=== PATIENT | male | born 1970 | race Caucasian/White ===

== ENCOUNTER 2024-07-31 08:21 | Outpatient (OUT) | payer OTHER, SELFPAY ==
--- NOTE | 2024-07-31 09:09 | ECG_ITS ---
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
[2024-07-31 10:32] LABS: Anion Gap 16.7; BUN Creatinine Ratio 18.9; Calcium 9.6 mg/dL (8.5-10.1); Carbon Dioxide 24.9 mmol/L (21.0-32.0); Chloride 104 mmol/L (98-107); Estimated GFR (African America >60 (>=60 mL/min/1.73m^2); Estimated GFR (Non-African Ame 59 (>=60 mL/min/1.73m^2); Glucose 102 mg/dL (74-106); Potassium 4.6 mmol/L (3.5-5.1); Sodium 141 mmol/L (136-145)
== END 2024-07-31 08:22 | disposition home or self-care (01) ==
LOC: PST 08:24
PROVIDERS: PCP Internal Medicine; Visit Provider Surgery
DX: Z01.810 Encounter for preprocedural cardiovascular examination (principal); Z01.812 Encounter for preprocedural laboratory examination; K42.9 Umbilical hernia without obstruction or gangrene
CPT/HCPCS: 80048; 93005

== ENCOUNTER 2024-08-11 06:41 | Day surgery (SDC) | payer OTHER, SELFPAY ==
[2024-07-31 09:36] VITALS: BP 126/85; PULSE 53; TEMP 36.4; O2SAT 98; BMI 32.1
[2024-08-11] VITALS (10 sets, daily range): BP systolic 122–166; BP diastolic 71–111; PULSE 59–80; TEMP 36.1–36.2; O2SAT 95–99; BMI 31.8; BMI 4581.1
--- OUTSIDE RECORDS SUMMARY | 2024-08-11 06:47 | XMS_ITS | CCD ---
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 Name Role Phone MESKO, JAYLEN W Unavailable Unavailable MESKO, JAYLEN W Unavailable Unavailable PAYAL, JAYANTILAL D Unavailable Unavailabl e MESKO, JAYLEN W Unavailable Unavailable MESKO, JYALEN W Unavailable Unavailable PAYAL, JAYANTILAL D Unavailable UnavailSEE Ferrell Primary Care Unavailable PAY, ANISH Admitting Unavailable PAY, ANISH Attending Unavailable CYNTHIA CORNEJO Consulting Unavailable PAY, ANISH Consulting Unavailable ML WALTER Consulting Unavailable FLORES ROSALES Admitting Unavailable FLORES ROSALES Attending Unavailable SEE KHALIL Primary Care Unavailable FLORES ROSALES Consulting Unavailable FREDERICK LIGHT Consulting Unavailable See Khalil II Primary Care Provider [phone] See Khalil II Primary Care Provider SEE KHALIL Admitting Unavailable SEE KHALIL Attending Unavailable SEE KHALIL Primary Care Unavailable Provider, None Primary Care Unavailable Jason Esparza Admitting Unavailable Jason Esparza Attending Unavailable Remi HAGER MD, Daniel B Primary Care Provider Remi HAGER MD, Daniel B Primary Care Provider [phone] GREGORIO HERNÁNDEZ Attending Unavailable FAMILIA ACOSTA Attending Unavailable SEE KHALIL Attending Unavailable SEE KHALIL Attending Unavailable SEE KHALIL Attending Unavailable SEE KHALIL Attending Unavailable See Khalil MD Unavailable [phone] See Khalil MD Primary Care Provider Medications Current Medications Medication Drug Class(es) Dates Sig (Normalized) Sig (Original) acetaminophen 500 mg oral tablet (1 source) Start: 12-18-2021 End: 01-17-2022 take 2 tablets by mouth every eight hours as needed acetaminophen (TYLENOL EXTRA STRENGTH) 500 mg tablet Take 2 tablets by mouth three times daily as needed for pain. 180 tablet 1 12/18/2021 01/17/2022 Active Comment on above: Take 2 tablets by mo [facility] three times daily as needed for pain. allopurinol 100 mg oral tablet (9 sources) Xanthine Oxidase Inhibitor Start: 05-11-2024 take 2 tablets by mouth once daily allopurinol (Zyloprim) 100 MG tablet Indications: Pseudogout Take 2 tablets (200 mg) by mouth Daily 180 tablet 3 05/11/2024 Active allopurinol (ZYL OPRIM) 100 mg tablet Take 200 mg by mouth once daily. Once a daily 0 Active Comment on above: Take 200 mg by mouth once daily. Once a daily amLODIPine 5 mg oral tablet (5 sources) Dihydropyridine Calcium Channel Naveed Start: 06-08-20 take 1 tablet by mouth once daily amLODIPine (NORVASC) 5 mg tablet Take 5 mg by mouth once daily. 0 06/08/2018 Active Comment on above: Take 5 mg by mouth o nce daily. amoxicillin 500 mg oral tablet (9 sources) Penicillin-class Antibacterial Start: 06-30-20 24 amoxicillin (Amoxil) 500 MG tablet TAKE 4 TABLETS BY MOUTH 1 HOUR PRIOR TO APPOINTMENT, then TAKE 2 TABLETS BY MOUTH 6 (SIX) HOURS after appointment 06/30/2024 Active Start: 10-23-2022 End: 02-06-2024 amoxicillin (AMOXIL) 500 mg capsule Take 4 capsules (2000 mg) 1 hour prior to procedure, then take 2 capsules (1000mg) 6 hours after procedure. 6 capsule 2 02/06/2024 Active Comment on above: Take 4 capsules (200 0 mg) 1 hour prior to procedure, then take 2 capsules (1000mg) 6 hours after procedure. aspirin 81 mg delayed release oral tablet (4 sources) Platelet Aggregation Inhibitor, Nonsteroidal Anti-inflammatory Drug Start: 2 End: 2 take 1 tablet by mouth twice daily aspirin, enteric coated (ECOTRIN LOW STRENGTH) 81 mg EC tablet Take 1 tablet by mouth twice daily for 28 days. 56 tablet 0 12/18/2021 Active Comment on above: Take 1 tablet by [facility] twice daily for 28 days. bisoprolol fumarate 10 mg oral tablet (9 sources) beta-Adrenergic Naveed Start: 4 take 1 tablet by mouth once daily bisoprolol (Zebeta) 10 MG tablet Indications: HTN (hypertension), benign (CMS/HCC) Take 1 tablet (10 mg) by mouth Daily 90 tablet 3 05/11/2024 Active take 1 tablet by mouth once vida y bisoprolol (ZEBETA) 10 mg tablet Take 10 mg by mouth once daily. 0 Active Comment on above: Take 10 mg by mouth once daily. brexpiprazole 2 mg oral tablet (5 sources) Atypical Antipsychotic take 1 tablet by mouth once daily brexpiprazole (REXULTI) 2 mg tab Take 1 tablet by mouth once daily. 0 Active Comment on above: Take 1 tablet by paulette th once daily. citalopram 10 mg oral tablet (9 sources) Serotonin Reuptake Inhibitor Start: 05-11-20 24 take 1 tablet by mouth once daily citalopram (CeleXA) 10 MG tablet Indications: Depression with anxiety Take 1 tablet (10 mg) by mouth Daily 90 tablet 3 05/11/2024 Active Start: 06-08-2018 take 1 tablet by paulette th once daily citalopram (CELEXA) 20 mg tablet Take 20 mg by mouth once daily. 0 06/08/2018 Active Comment on above: Take 20 mg by mouth once daily. docusate sodium 100 mg oral capsule (5 sources) Start: 2 take 1 capsule by mouth every twelve hours as needed docusate sodium (COLACE) 100 mg capsule Take 1 capsule by mouth twice daily as needed for constipation. 20 capsule 0 12/18/2021 Active Comment on above: Take 1 capsule by mo [facility] twice daily as needed for constipation. doxycycline hyclate 100 mg oral capsule (1 source) Tetracycline-class Drug Start: 2 End: 2 take 1 capsule by mouth twice daily doxycycline hyclate (VIBRAMYCIN) 100 mg capsule Take 1 capsule by mouth twice daily. 84 capsule 0 12/18/2021 01/29/2022 Active Comment on above: Take 1 capsule by mo [facility] twice daily. rosuvastatin calcium 20 mg oral tablet (9 sources) HMG-CoA Reductase Inhibitor Start: 4 take 1 tablet by mouth once daily rosuvastatin (Crestor) 20 MG tablet Indications: Mixed hyperlipidemia (CMS/HCC) Take 1 tablet (20 mg) by mouth Daily 90 tablet 3 05/11/2024 Active take 1 tablet by mouth once vida y rosuvastatin (CRESTOR) 20 mg tablet Take 20 mg by mouth once daily. 0 Active Comment on above: Take 20 mg by mouth once daily. semaglutide (Ozempic) 4 MG/3ML solution pen-injector (1 source) Start: inject 1 mg by subcutaneous injection every week semaglutide (Ozempic) 4 MG/3ML solution pen-injector Indications: Type 2 diabetes mellitus with other specified complication, without long-term current use of insulin ([facility]) Inject 1 mg under the skin 1 (one) time per week 1 each 07/30/2024 Active Semaglutide,0.25 or 0.5MG/DOS, (Ozempic, 0.25 or 0.5 MG/DOSE,) 2 MG/3ML solution pen-injector (3 sources) Start: Semaglutide,0.25 or 0.5MG/DOS, (Ozempic, 0.25 or 0.5 MG/DOSE,) 2 MG/3ML solution pen-injector Indications: Type 2 diabetes mellitus with other specified complication, without long-term current use of insulin ([facility]) Inject 0.5 mg under the skin every 7 (seven) days 3 mL 07/02/2024 Active sildenafil 50 mg oral tablet (9 sources) Phosphodiesterase 5 Inhibitor Start: take 1 tablet by mouth once daily sildenafil (Viagra) 50 MG tablet Indications: Erectile dysfunction due to diseases classified elsewhere Take 1 tablet (50 mg) by mouth Daily 14 tablet 5 06/01/2024 Active sildenafil (VIAG RA) 50 mg tablet Take 50 mg by mouth as needed. 0 Active Comment on above: Take 50 mg by mouth as needed. 1 ml testosterone cypionate 200 mg/ml injection (9 sources) Androgen Start: inject 1 mL by intramuscular injection every month testosterone cypionate (Depo-Testosterone) 200 MG/ML injection Indications: Androgen deficiency inject 1 milliliter intramuscularly ONCE A MONTH 3 mL 3 06/03/2024 Active inject 1 mL by intra muscular injection every month testosterone cypionate 200 mg/mL kit Inj ect intramuscularly. Inject 1 ml intramuscular once a month 0 Active Comment on above: Inject intramuscular ly. Inject 1 ml intramuscular once a month Problems Active Problems Problem Classification Problem Date Documented Date Episodic/Chronic Abdominal hernia (2 sources) Umbilical hernia; Translations: [Umbilical hernia without obstruction or gangrene] 07-22-2024 Episodic Anxiety disorders (4 sources) Mixed anxiety and depressive disorder; Translations: [Other specified anxiety disorders] Onset: 04-05-2023 04-05-2023 Chronic Diabetes mellitus without complication (4 sources) Type 2 diabetes mellitus; Translations: [Type 2 diabetes mellitus without complications] Onset: 12-02-2023 03-05-2024 Chronic Disorders of lipid metabolism (4 sources) Mixed hyperlipidemia; Translations: [Mixed hyperlipidemia] Onset: 04-05-2023 04-05-2023 Chronic Esophageal disorders (9 sources) Gastroesophageal reflux disease; Translations: [Gastro-esophageal reflux disease without esophagitis] Onset: 12-12-2021 12-12-2021 Chronic Essential hypertension (9 sources) Hypertensive disorder; Translations: [Essential (primary) hypertension] Onset: 12-12-2021 12-12-2021 Chronic External cause codes: Fall (1 source) Fall on same level due to ice and snow, initial encounter; Translations: [FALL SAME LEVEL D/T ICE SNOW INIT] Onset: 10-28-2018 Gout and other crystal arthropathies (12 sources) Primary gout; Translations: [Idiopathic gout, unspecified site] Onset: 04-05-2023 04-05-2023 Chronic Osteoarthritis (4 sources) Osteoarthritis of hip; Translations: [Osteoarthritis of hip, unspecified] Onset: 04-05-2023 04-05-2023 Chronic Other and unspecified benign neoplasm (1 source) Benign neoplasm of transverse colon; Translations: [BENIGN NEOPLASM OF TRANSVERSE COLON] Onset: 08-04-2019 Episodic Other bone disease and musculoskeletal deformities (1 source) Idiopathic aseptic necrosis of left femur; Translations: [Idiopathic aseptic necrosis of left femur] Onset: 08-21-2018 Chronic Other bone disease and musculoskeletal deformities (1 source) Osteonecrosis, unspecified; Translations: [Osteonecrosis, unspecified] Onset: 07-10-2018 Chronic Other bone disease and musculoskeletal deformities (3 sources) Aseptic necrosis of bone of hip; Translations: [Osteonecrosis, unspecified] Onset: 07-10-2018 07-10-2018 Chronic Other bone disease and musculoskeletal deformities (9 sources) Avascular necrosis of bone; Translations: [Idiopathic aseptic necrosis of unspecified bone] Onset: 08-19-2018 08-19-2018 Chronic Other bone disease and musculoskeletal deformities (9 sources) Avascular necrosis of bone of hip; Translations: [Idiopathic aseptic necrosis of left femur] Onset: 08-21-2018 08-21-2018 Chronic Other bone disease and musculoskeletal deformities (2 sources) Avascular necrosis of bone of hip; Translations: [Osteonecrosis, unspecified] Onset: 07-10-2018 07-10-2018 Chronic Other connective tissue disease (1 source) Presence of artificial hip joint, bilateral; Translations: [PRESENCE ARTIFICIAL HIP JOINT BILAT] Onset: 10-28-2018 Chronic Other connective tissue disease (8 sources) Hip joint prosthesis present; Translations: [Presence of unspecified artificial hip joint] Onset: 04-05-2023 04-05-2023 Chronic Other connective tissue disease (4 sources) History of repair of hip joint; Translations: [Presence of left artificial hip joint] Onset: 04-05-2023 04-05-2023 Chronic Other endocrine disorders (4 sources) Deficiency of testosterone biosynthesis; Translations: [Testicular hypofunction] Onset: 04-05-2023 04-05-2023 Chronic Other male genital disorders (4 sources) Secondary erectile dysfunction; Translations: [Erectile dysfunction due to diseases classified elsewhere] Onset: 04-05-2023 04-05-2023 Chronic Other nutritional; endocrine; and metabolic disorders (4 sources) Metabolic syndrome X; Translations: [Metabolic syndrome] Onset: 04-05-2023 04-05-2023 Chronic Other nutritional; endocrine; and metabolic disorders (4 sources) Severe obesity; Translations: [Morbid (severe) obesity due to excess calories] Onset: 04-05-2023 04-05-2023 Chronic Other screening for suspected conditions (not mental disorders or infectious disease) (4 sources) Encounter for screening for malignant neoplasm of colon; Translations: [ENC SCREEN MALIG NEOPLASM COLON] Onset: 07-29-2019 Episodic Past or Other Problems Problem Classification Problem Date Documented Da te Episodic/Chronic Complication of device; implant or graft (7 sources) Dislocation of internal left hip prosthesis, initial encounter; Translations: [Hip unstable] Onset: 10-28-2018 Episodic Diabetes mellitus without complication (4 sources) Hyperglycemia; Translations: [Hyperglycemia, unspecified] Onset: 04-05-2023 04-05-2023 Episodic Other aftercare (1 source) jail (current) use of aspirin; Translations: [UN[employer]WRITER M[employer] LOAN CURRENT USE OF ASPIRIN] Onset: 10-28-2018 Episodic Other liver diseases (4 sources) Elevated liver enzymes level; Translations: [Abnormal levels of other serum enzymes] Onset: 04-05-2023 04-05-2023 Episodic Other non-traumatic joint disorders (3 sources) Pain in left hip; Translations: [PAIN IN LEFT HIP] Onset: 10-24-2018 Episodic Other non-traumatic joint disorders (4 sources) Joint derangement; Translations: [Joint derangement, unspecified] Onset: 04-05-2023 04-05-2023 Episodic Residual codes; unclassified (9 sources) Heavy drinker ; Translations: [Other specified health status] Onset: 12-12-2021 12-12-2021 Episodic Superficial injury; contusion (1 source) Contusion of left hip, initial encounter; Translations: [CONTUSION LEFT HIP INITIAL ENC] Onset: 10-28-2018 Episodic Results Test Name Value Interpretation Reference Range Facility ALL BASIC METABOLIC PANELon 07-31-2024 Anion gap [Moles/Vol] 16.7 mmol/L [facility] Calcium [Mass/Vol] 9.6 mg/dL 8.5 - 10.1 mg/dL [facility] Chloride [Moles/Vol] 104 mmol/L 98 - 107 mmol/L [facility] CO2 [Moles/Vol] 24.9 mmol/L 21.0 - 32.0 mmol/L [facility] Creatinine [Mass/Vol] 1.27 mg/dL 0.70 - 1.30 mg/dL [facility] GFR/1.73 sq M.predicted CKD-EPI (S/P/Bld) [Vol rate/Area] >60 >=60 mL/min/1.7 3m 2 [facility] Glucose [Mass/Vol] 102 mg/dL 74 - 106 mg/dL [facility] Interpretation and review of laboratory results Abnormal [facility] Potassium [Moles/Vol] 4.6 mmol/L 3.5 - 5.1 mmol/L [facility] Sodium [Moles/Vol] 141 mmol/L 136 - 145 mmol/L [facility] EGFR-NON AF MAURITIAN 59 Low >=60 mL/min/1.7 3m 2 [facility] Urea nitrogen [Mass/Vol] 24 mg/dL High 7.0 - 18.0 mg/dL [facility] Urea nitrogen/Creati nine [Mass ratio] 18.9 mg/mg [facility] CNPNon 12-24-2023 CNPN Telephone (ORQ) RANJANA MCDONOUHG ([id number]) 1970 M Date Time Provider Department 12/24/23 JAYLEN CASIANO ORQ During your visit today, we recorded the following information about you: Tamara Vega 12/24/2023 1:05 PM Signed Ranjana has a dental appointment tomorrow, he just needs this form filled out and a stamped signature is OK Estella Box, JOSE FRANCISCO 12/24/2023 1:22 PM Signed Nel - please complete (since we are not on site at today) and fax back. Yes to needing prophylaxis. Type of Antibiotic - copy from page 21 in surgery packet, Amoxicillin protocol. How long - lifetime, if tolerated by patient. The remainder of the questions are not pertinent for us to comment on - they do not relate to orthopedics/having a hip implant. OK to stamp and then fax back. Thank you. Tamara Vega 12/26/2023 8:59 AM Signed Form for dental clearance (below) as well as Dr. Casiano's antibiotic protocol emailed to [facility]: [email or web address] As of Date: 12/24/2023 (No Known Allergies) Date Reviewed: 12/18/2022 Reviewed by: Swetha Griffiths MA - Fully Assessed Reason for Visit: Patient Question [7988] Cmt: Dental Clearance Prescriptions as of 12/26/2023 - amoxicillin (AMOXIL) 500 mg capsule Take 4 capsules (2000 mg) 1 hour prior to procedure, then take 2 capsules (1000mg) 6 hours after procedure. - aspirin, enteric coated (ECOTRIN LOW STRENGTH) 81 mg EC tablet Take 1 tablet by mouth twice daily for 28 days. - docusate sodium (COLACE) 100 mg capsule Take 1 capsule by mouth twice daily as needed for constipation. - testosterone cypionate 200 mg/mL kit Inject intramuscularly. Inject 1 ml intramuscular once a month - allopurinol (ZYLOPRIM) 100 mg tablet Take 200 mg by mouth once daily. Once a daily - bisoprolol (ZEBETA) 10 mg tablet Take 10 mg by mouth once daily. - rosuvastatin (CRESTOR) 20 mg tablet Take 20 mg by mouth once daily. - sildenafil (VIAGRA) 50 mg tablet Take 50 mg by mouth as needed. - brexpiprazole (REXULTI) 2 mg tab Take 1 tablet by mouth once daily. - citalopram (CELEXA) 20 mg tablet Take 20 mg by mouth once daily. - amLODIPine (NORVASC) 5 mg tablet Take 5 mg by mouth once daily. Problem List As Of Date 12/24/2023 Noted Resolved Osteonecrosis of right hip (HCC) [M87.9] 07/10/2018 AVN (avascular necrosis of bone) (HCC) [M87.00] 08/19/2018 Avascular necrosis of bone of left hip (HCC) [M*08/21/2018 GERD (gastroesophageal reflux disease) [K21.9] 12/12/2021 HTN (hypertension) [I10] 12/12/2021 Alcohol consumption heavy [Z78.9] 12/12/2021 Instability of prosthetic hip (HCC) [T84.028A, *12/18/2021 Encounter Status:Closed by SWETHA BOX on 12/26/23 [facility] Coding Summaryon 12-09-2023 Coding Summary HTMLBase 64 PjzbyjjlRAs7dMf+PGhlYWQ+DQ2DXULnJ1 8mvBTjpC9uW5SGHFhJZejrAGQWMZbTBmUh ulBmKL4ctQLwAMRl IC8+DE0pFMDwLfwfoKLid0Q9pXT9X19fmk 0yZVqbsKL7PYDuKoBuaclgt9smwMe1FPgv NmluOyBt RGTtpL02FTQ9yZ77Mj58bJBxfFPmn0sxpM b8SvDaTRUvJVO5qVkdAZcnz4DoJCXjS98y vHIst3Y4 ZPOdkPztwGSdXsKvrRT3fX4jCFdzrrvej0 jedsylNny9qf51dPZol1Z4aXV4A6LjjsB2 IGJvbGQg UkbobLYInL5qqrbfi6gwmztqCiBlJDAeHH u4HGl9TRAweOxeBkHrUX49LKX3RNYofxIk O7KsLAQp jKubVsI2o8B5Ud7MC7TPMiaaB2DAKXQIZG wvdGQ+UN61me69F8WeZgqgNvs8TAEdQVR0 mIY3mG7s WMJgQDyry2Y0cZG5K1JliuQrcj9ld3kaRN SwVLpyS52viEAaz9G0JQTlzHO6KSHwkUbb ZlUycR78 Oyc+NVMozUmac0ZaKqhyo6dtn6cijLh6Mx utLHMkndCdaDexBMA3u4FqGl0lILNaiGA3 jXF8aA7i AgUjAgA5BKemB497DrUzpXAfFmueS00yI6 JvdXA+JENxEdw7YYQyuEyuNN0iP6FrZDUl bmctbGVm pWmlOY2qRUUkfkidAPHnvZ1oQCFhN8g7Ng FwOcE7OJmjN4DdGDHvvhdgAx47iD1fVoOp MwS2IChi T0GdyoE2YWMmsFLeDAswFTY0I75gs6T1ZN MhSBTpWHE7cDK3iL0mcGhkfaujfUQabYlc dmVydGlj MBxbTSnlX904SRMacVnyXlXlBXzrDbUDMA RlOiAgMDIvMjYvMjAyNDwvdGQ+PHRkIHN0 eWxlPSAn qOOqOUtrFt3ocEmiiVitUL7eZJOegnybWB RrkT8rQIEciMQadUpeAP0mIAAfwresd188 OiAxMHB0 VCSgcEJsL7EvlC1hSnZoKULpDQAoH6UftJ OhYSezT565DLwzZgZ8RDZtgaFjI4VySJVe aWduOiB0 f3X7Cc0Fs8RttlsyP5CsrEPuKlLiUddlJV m5F3FlOarzcVW+OK67IREzXE32JKu5WHN4 eWxlPSdi DWWeZ2SpdE2aRdPcVOVhFCItNhe+PHRhYm jnHCljYBLjINxxYPSeZzSelHcjTP5eHb7e ZGVyLWNv cZxotZXrHgLas8hhINSaHMpnJO0axPkgN2 LpoTV2QABja7q1Ha98Z59lC2QolQX+PGNv yIP0kLI3 pN4yVvJjJpE4NRegE607FcIqaSDuDvhlo4 sek2fdkIu7KrF4EGAzceHudCmoWOL4y3Tf Kd54F20d VFulLXTxQMCfAZLjQXGfeOdmuk7jkQ1oEv 8+MGLdhIY2mNN7fN0kUwGoKzZ5OXciZ001 InRvcCIv Twucf7rzr3ghsCy2StEnDIGwgaBwbYyfNA C7v6YkVe92C3OxfNore4CdUqe5jl66lMAz j2C4jIM4 O9JoGEBglrfctYVsrVfuXS4qXUStdhyaOU HptS0cWOFzQ1j5WyXeNbD3ECnuO8GkwuN1 IGJvbGQg OHQwiYACmV7qwpcyt8kzvshiQwPmPMJeUZ v8JEa6CCVboPwvIaEnZGX2McS5GDK4aVXc kK9mkFcq pyeokI4xMdg+MWG6pDRktTWFCL7sDiwqxQ Q+PETnWJA5qRmnOBuzOSZoyO3eFXKiW0u2 OiAwLjA1 MVqkL4LxxnA4QMYkmRFiJBSbxYPPyK7qmj nca5hmrhrvEkVoPCLmOUc9KNp1SBCmkBjf OiBsZWZ0 EiY5QML2qQMeuX0raXpeqcgreU0qZff+Qm skgFrqNDW4STi0E7QlJkl9TJKczJewZR2q cGFkZGlu Lh8wwXipuUksAP4aBMUlcfvvh675HqSet8 nfEOJehMUlTGvsVDZ3O85nu3A1LHKsZKJz ACG5wFU6 sW1rcEdbubecbLEffSchiqBsuGiwWGnmCF blU653DVKlcTdtMuTyBEm1H9LuSib6EEEb oMrzCF3u nCHnYHctZy5sfOckqMpoLJ0cISFaggtsn3 73YwRpp4neGHAokTRjFIbiMPA6M35gn1B1 ICMwMDAw UZX1bAE7xY6taYibetkulQBkgEfqmiCwhO rpEKerRXjzK437YUUfsErpHjMviLy8N9Pn Mtb8ORVz cSniYZ0kiWLtZJeyYg8gsEkunVigDK1wIB Akyzifz772QjFtz3rjEVXjuRArAGybJEQ3 R27nz3R2 CTTtCZUaYMK7wUY0uC7tvLwxfcumvKPquJ ashqEdbGdaTFejIFhoH713GVKndVioUnUx dGllbnQg PAfnWPi1Q1GiTkldaLY+UF95OGGqCF73aX FrlBDrd0uzwRe3WaIqUCEwKQA4kTwpXXno p4IkZMFe G89alAAjx2T1ONPkwCrubAKqQnRbiYP8zT 1fKQxkluxrx2mgcyfwMisht5ehnf47hD35 U84vBCvp DTSaFTGqSUWqSELguMvkkk4gsO1nNl6+PG UguVW5oBR8wJ3tDCNuZsY2SVrsU990PuIb cCIvPjxj t8aif1emwYk8RxX9ZXQetpCywSkuWDA4o1 YbTp28M13sETvvVSDeKUMcEQDnUMLreSqf vt7lyH8f Ii8+QPJfaEV5cKL8fQ4fXpDlTkX0WRqrU5 56YlBtnZHlIwyzD62iV6VvpUJ+PHRyPjx0 ZCBzdHls RQ6ziGRoXVlgEc9yNXQ7OgYgKqBhXQmnI2 BaLKRhbzwztxegcFS0HUStFPThiL20Ug7c dDogMTBw cACKdU8bqhrot4akaureVqMoRCVpFVg3GS l4XJUtcVsoEeKjBRT2XoM9IXR6iXLijU4p bGlnbjog aQ6qA3VwTYMzlzejXi29jT0iJnLcDxV0OV luOyc+RRCPNzdLZTHIR4EGAN08PU90sBRp g5V3eJQ0 O1SqZVRhpzxwehopzTC5KHHdZZQoyO91hG TeGIvpXw9pi9S2d619VMNoXHPpoK76Gx0e dDogMTBw xDZBeK9colkzt6vwldibSaAyGKHjWOk0LE f4VSGxmFycZpCdMXX3OhX0TFZ5iDBwlM1w bGlnbjog mD2zYfp+QWctOCKyXUz8SWcdeUG+PHRkIH C3rJtqOYuyKQKhzQ3rGZMhA6d0WaFeZdS9 DMaaE6Mp NTFbguxaNl35dZ7lJjLdXrA5AUrlQ8Yory J8NXZulQOkZKqhFGB4N84zz3Q8PXHhHEGd TVT7jYA1 aI3feFqhvpmkgHIzkLjiliNioGzfPLvjQY ocW993GLUpzHfeTaU0OCbmMPErNT73YD81 wJXoi9U5 iJT7W1FiZHSqwpmzybuzuUS1VJOsTCEhzK 17aTFfVNwxAm3xh9E5k477ULBsGZMcsC85 Zm3hgFge EMZtdNPImW3hluihv9lewpboPkVsIUDpFG p6TBh5UXSrpRvtDwPjNOK5PuL6PQF6wKAd pH3lrXdb uohppF2eKcc+TUFMRTwvdGQ+HVJiGQZ9mN njUGhoNBMjlP8gMPSjZ9x5BzNnLdI8PHrk A5PmGNDn jpquCt22tN5jPxMcQeQ4VXhtA5DtdrN5NZ FweLWwELktZGO0L21ed5S0HKBhLBUqLNG0 dFB7zL9e bGlnbjogbGVmdDsgdmVydGljYWwtYWxpZ2 82CANpjXvqLy5EVB55SS01R4LfVnxreCHm bGU+PHRh PqzuFXfuZYAlGRiaDPKvVtLwnQzwTE7sQp 2rGVFkYFDxjDjqsLJhMjOuw7rhLKDuRTrk GA7xfPcd U1TqcNC9DHDtl7u9Bc09Y54aN8EnhCD+PG OpqRQ9mOT4yA6gBkRdWnZ9KUbjZ862CpGi cCIvPjxj l4hit8kpzPd7HgQnLHMtfwOvyQbxYES5q2 BeXf25T28zLVraGMJtENQgMONvPQMjcIya fa1wtE4d Ii8+XXDwzWI9eCF0fC4wIkYeLeK3FSvfJ8 88XkRokGByMcohH03fK7PqaGP+PHRyPjx0 ZCBzdHls IF1snSQxRKhiFo6iFOO2CgMtTsXrPIneZ6 ScHRSijxlbdhrdhOO4PCWhFSBijE53Xl1r pJivZe2b GSLvSZH3WMZaaREtO0JarT3cZuPtBDBtJW ZhX3EawHLeQIdnD087BHlmSwH6INYjnwGr U9JnBYBa yVnbHcJ0z4D0Bi0QvAjqaQSoTL4iVyRpGO w9M0FpPbv2RACycIvjNU3hlDOjCCndTm7g aWdodDog PI0zWKJlljkae754ClEbt9dnSFZuxQEcNY lhLLG4U23wk1R0WOZxFISoGAA2mDR3vZ1w bGlnbjog mBImcIwqwbOiaCvjPMbdWReiW020VOKhyI kzHgDFLig0F5ThJql1MNHsxBttNU3clKEy RDcgVw1n xBjgxJapYU1kSFUnmxejw292MnWjg1czOC QmcRKdDCzwSJG8P04qj6S0SXJtVMHxXMQ9 xOV7mE4r bGlnbjogbGVmdDsgdmVydGljYWwtYWxpZ2 41JLTwiOlpHo8NTzv1G6CwZhu3DMZfyEqy HZ3tuKBy IWtoKu2gmFpmdOlgHW9mLNMcapvys328Ks Otc3wqFLDwtYSkISwdYVF9J73xz9T8WUMi MDAwMDA7 fAP1uR2pgQinfhhtiFJixVarofTyaKztJN wsLBuyB556LNWhjEbtTxPlkKKhMohkrSG+ IM13wa53 I0HbDksxExz5XTEnWWU1fBT7mJ7jWGTjEO dyo3Z8pQJ2L1LkynFlpk6in9bpROThJPxk B41taGIk c2U (more content not included)... Normal [facility] Testosterone, Serum LCon Testosterone, Serum LC 149 ng/dL Low 264-916 [facility] Comment on above: Result Comment: Adult male reference int erval is based on a population of healthy nonobese males (BMI <30) between 19 and 39 years old. Carlos et.al. JCEM 2017,102;8085-2281. PMID: 13408152. Performed At: [facility] [address] [id number] Pierce Zapata PhD Ph:[phone] Performed By: #### 1 [id number], [id number], [id number], [id number], [id number], [id number], [id number] ####[facility] (DEFAULT)[address] [place] [address] .Auto Diff 12-03-2023 Auto Alcorn % 7 % Normal - [facility] Comment on above: Performed By: #### [id number], [id number] 5, [id number], [id number], [id number], [id number], [id number] ####[facility] (DEFAULT)[address] [place] [address] Baso Abs# 0.1 x10 Normal 0.0-0.2 [facility] Comment on above: Performed By: #### [id number], [id number] 5, [id number], [id number], [id number], [id number], [id number] ####[facility] (DEFAULT)[address] [place] [address] Basophils/100 WBC (Bld) 1.4 % Normal 0.2-2.0 [facility] Comment on above: Performed By: #### [id number], [id number] 5, [id number], 94825258, [id number], 4846257, [id number] ####[facility] (DEFAULT)[address] [place] [address] Eos Abs# 0.1 x10 Normal 0.0-0.4 [facility] Comment on above: Performed By: #### [id number], [id number] 5, [id number], [id number], [id number], 8199797, 6351745 ####[facility] (DEFAULT)[address] [place] [id number] Eosinophils/100 WBC (Bld) 1.7 % Normal 0.9-4.0 [facility] Comment on above: Performed By: #### [id number], [id number] 5, [id number], [id number], [id number], 7999329, 7277754 ####[facility] (DEFAULT)[address] [place] [address] Lymph Abs# 1.8 x10 Normal 1.3-2.9 [facility] Comment on above: Performed By: #### [id number], [id number] 5, 23766401, 87052968, 003464866, 5785997, 0204652 ####[facility] (DEFAULT)[address] [place] [address] 58286 Lymphocytes/100 WBC (Bld) 24 % Normal 14-48 [facility] Comment on above: Performed By: #### [id number], [id number] 5, 71812453, 64969349, 015602119, 8948897, 6656263 ####[facility] (DEFAULT)[address] [place] [address] 51894 Alcorn Abs# 0.5 x10 Normal 0.0-0.8 [facility] Comment on above: Performed By: #### [id number], [id number] 5, 74139985, 43363090, 204484635, 1483326, 5061650 ####[facility] (DEFAULT)[address] [place] [address] 84729 Neut Abs# 5.1 x10 Normal 1.5-9.2 [facility] Comment on above: Performed By: #### [id number], 162738674 5, 33833675, 85438792, 710146800, 5332276, 2764900 ####[facility] (DEFAULT)[address] [place] [address] 70240 Neutrophils/100 WBC (Bld) 66 % Normal 44-88 [facility] Comment on above: Performed By: #### [id number], 083408743 5, 29100982, 96269174, 836138917, 3690407, 4018841 ####[facility] (DEFAULT)[address] [place] [address] CBC w/ Auto Diffon 4 Erythrocyte distribution width (RBC) [Ratio] 13.7 % Normal 11.5-15.0 [facility] Comment on above: Performed By: #### [id number], 170634026 5, 91762214, 55442820, 879223678, 3254974, 9236753 ####[facility] (DEFAULT)[address] [place] [address] Hematocrit (Bld) [Volume fraction] 47.4 % Normal 34.8-51.9 [facility] Comment on above: Performed By: #### [id number], 964090029 5, 82962555, 67882599, 547125474, 8598359, 5632480 ####[facility] (DEFAULT)[address] [place] [address] Hemoglobin (Bld) [Mass/Vol] 15.8 g/dL Normal 11.8-17.7 [facility] Comment on above: Performed By: #### [id number], 242673171 5, 99763969, 63643036, 191076218, 7245148, 7999480 ####[facility] (DEFAULT)[address] [place] [address] Man Diff? Auto Invalid Interpretation Code [facility] Comment on above: Performed By: #### [id number], 609374667 5, 54491431, 78737369, 748797183, 4998632, 1500000 ####[facility] (DEFAULT)[address] [place] [address] MCH (RBC) [Entitic mass] 31 pg Normal 24-34 [facility] Comment on above: Performed By: #### [id number], 295560344 5, 13725676, 36386440, 571144087, 4481362, 3107980 ####[facility] (DEFAULT)[address] [place] [address] MCHC (RBC) [Mass/Vol] 33 g/dL Normal 26-37 [facility] Comment on above: Performed By: #### [id number], 762126766 5, 68106368, 84795393, 418154790, 7087530, 1897725 ####[facility] (DEFAULT)[address] [place] [address] 63228 MCV (RBC) [Entitic vol] 92 fL Normal 81-100 [facility] Comment on above: Performed By: #### [id number], 888401461 5, 72934715, 31482266, 388631785, 2968085, 8507605 ####[facility] (DEFAULT)[address] [place] [address] Platelet 267 x10 Normal 138-427 [facility] Comment on above: Performed By: #### [id number], 283910747 5, 98427382, 82293435, 191940610, 7005751, 9288136 ####[facility] (DEFAULT)[address] [place] [address] 88921 Platelet mean volume (Bld) [Entitic vol] 9.7 fL Normal 6.3-10.2 [facility] Comment on above: Performed By: #### [id number], 913838779 5, 66390836, 22691887, 536328693, 9028720, 7282224 ####[facility] (DEFAULT)[address] [place] [address] RBC 5.13 x10 Normal 3.70-5.30 [facility] Comment on above: Performed By: #### [id number], 292387176 5, 16897359, 87637601, 265409671, 5520855, 3057194 ####[facility] (DEFAULT)[address] [place] [address] 09015 WBC 7.7 x10 Normal 3.5-10.5 [facility] Comment on above: Performed By: #### [id number], 641830008 5, 58530815, 47014727, 072203582, 0578063, 7370373 ####[facility] (DEFAULT)[address] [place] [address] CMP Standardon 12-03-2023 eGFR Non AA 56 mL/min/1.73m2 Invalid Interpretation Code [facility] Comment on above: Performed By: #### [id number], 433214212 5, 14986692, 26283516, 118644673, 6838674, 6501549 ####[facility] (DEFAULT)[address] [place] [address] eGFR AA >60 Invalid Interpretation Code [facility] Comment on above: Performed By: #### [id number], 965255808 5, 63120142, 36009425, 991642315, 5671055, 2145476 ####[facility] (DEFAULT)[address] [place] [address] Albumin [Mass/Vol] 5.0 g/dL Normal 3.5-5.0 [facility] Comment on above: Performed By: #### [id number], 395978361 5, 45427023, 44474962, 280322269, 9243804, 3325204 ####[facility] (DEFAULT)[address] [place] [address] Albumin/Globuli n [Mass ratio] 1.5 {ratio} Normal 1.4-2.6 [facility] Comment on above: Performed By: #### [id number], 951958743 5, 90661546, 86843074, 645421585, 8001604, 0850323 ####[facility] (DEFAULT)[address] [place] [address] 45466 Alk Phos 91 IU/L Normal 32-91 [facility] Comment on above: Performed By: #### [id number], 123390337 5, 76647576, 59159710, 427342866, 8389047, 4327185 ####[facility] (DEFAULT)[address] [place] [address] ALT [Catalytic activity/Vol] 63.0 U/L Normal 17.0-63.0 [facility] Comment on above: Performed By: #### [id number], 244836461 5, 99830823, 27060591, 207023408, 9244900, 2428113 ####[facility] (DEFAULT)[address] [place] [address] 53713 Anion gap [Moles/Vol] 12.1 mmol/L Normal 5.0-19.0 [facility] Comment on above: Performed By: #### [id number], 765271016 5, 67471441, 54546857, 973883527, 9199383, 2737749 ####[facility] (DEFAULT)[address] [place] [address] 17923 AST [Catalytic activity/Vol] 56 U/L High 15-41 [facility] Comment on above: Performed By: #### [id number], 483726121 5, 09914901, 93556023, 683944467, 6459226, 9799465 ####[facility] (DEFAULT)[address] [place] [address] 82012 Bili Total 0.8 mg/dL Normal 0.3-1.2 [facility] Comment on above: Performed By: #### [id number], 413920414 5, 47883605, 26727465, 070524019, 8438539, 3316791 ####[facility] (DEFAULT)[address] [place] [address] 93822 Calcium [Mass/Vol] 9.4 mg/dL Normal 8.9-10.3 [facility] Comment on above: Performed By: #### [id number], 286656815 5, 71637595, 73080330, 291609651, 7416298, 1938844 ####[facility] (DEFAULT)[address] [place] [address] 86607 Chloride [Moles/Vol] 101 mmol/L Normal 101-111 [facility] Comment on above: Performed By: #### [id number], 056441773 5, 29984985, 69933560, 490016334, 1750177, 4161497 ####[facility] (DEFAULT)[address] [place] [address] 26948 CO2 [Moles/Vol] 25 mmol/L Normal 21-32 [facility] Comment on above: Performed By: #### [id number], 048571917 5, 23302390, 86517277, 416749272, 2535135, 5670075 ####[facility] (DEFAULT)[address] [place] [address] 08540 Creatinine [Mass/Vol] 1.34 mg/dL High 0.90-1.30 [facility] Comment on above: Performed By: #### [id number], 878445768 5, 64676164, 25000821, 392081805, 9249288, 6367310 ####[facility] (DEFAULT)[address] [place] [address] 16075 Globulin (S) [Mass/Vol] 3.3 g/dL Normal 1.5-4.3 [facility] Comment on above: Performed By: #### [id number], 945451073 5, 75422488, 86027509, 366208486, 3102677, 4998269 ####[facility] (DEFAULT)[address] [place] [address] 06481 Glucose [Mass/Vol] 114.0 mg/dL Normal 74.0-118.0 [facility] Comment on above: Performed By: #### [id number], 227801593 5, 56455478, 95387608, 092248420, 6080501, 3790033 ####[facility] (DEFAULT)[address] [place] [address] 98664 Osmolality 271 mOsm/L Invalid Interpretation Code [facility] Comment on above: Performed By: #### [id number], 920054915 5, 89194248, 46564934, 769810053, 9143747, 6753021 ####[facility] (DEFAULT)[address] [place] [address] 20346 Potassium [Moles/Vol] 4.1 mmol/L Normal 3.6-5.1 [facility] Comment on above: Performed By: #### [id number], 391169988 5, 09860924, 10063690, 049535083, 4581968, 7568191 ####[facility] (DEFAULT)[address] [place] [address] 94480 Protein [Mass/Vol] 8.3 g/dL High 6.5-8.1 [facility] Comment on above: Performed By: #### [id number], 263569607 5, 45756284, 95803784, 203230316, 8021150, 2908166 ####[facility] (DEFAULT)[address] [place] [address] 96401 Sodium [Moles/Vol] 134.0 mmol/L Low 136.0-144. 0 [facility] Comment on above: Performed By: #### [id number], 255710705 5, 55811971, 09232266, 030142558, 3605250, 8744610 ####[facility] (DEFAULT)[address] [place] [address] 88155 Urea nitrogen [Mass/Vol] 18 mg/dL Normal 8-26 [facility] Comment on above: Performed By: #### [id number], 709981202 5, 73558307, 36976366, 712510949, 7397014, 2796501 ####[facility] (DEFAULT)[address] [place] [address] 75530 Urea nitrogen/Creati nine [Mass ratio] 13.4 mg/mg Normal 4.6-16.2 [facility] Comment on above: Performed By: #### [id number], 838763305 5, 51699033, 36406779, 678232872, 1704577, 3433206 ####[facility] (DEFAULT)[address] [place] [address] 05115 Lipid Panel Standardon 12-03 Cholesterol [Mass/Vol] 188.0 mg/dL Normal 66.0-200.0 [facility] Comment on above: Performed By: #### [id number], 257524577 5, 89319240, 70863547, 343966774, 1423444, 0047090 ####[facility] (DEFAULT)[address] [place] [address] 88791 Cholesterol in HDL [Mass/Vol] 46 mg/dL Normal 40-71 [facility] Comment on above: Performed By: #### [id number], 815725524 5, 09338610, 43639974, 428783364, 1657746, 0857445 ####[facility] (DEFAULT)[address] [place] [address] 59014 Cholesterol in LDL [Mass/Vol] 100 mg/dL Normal 1-100 [facility] Comment on above: Performed By: #### [id number], 757539085 5, 69781430, 86767958, 824733773, 1346689, 2451030 ####[facility] (DEFAULT)[address] [place] [address] 15170 Cholesterol.tot al/Cholesterol in HDL [Mass ratio] 4.0 {ratio} Normal 0.0-4.5 [facility] Comment on above: Performed By: #### [id number], 706819392 5, 21419725, 60192587, 118290341, 3179681, 3566594 ####[facility] (DEFAULT)[address] [place] [address] 13776 Triglyceride [Mass/Vol] 210.0 mg/dL High 0.0-150.0 [facility] Comment on above: Performed By: #### [id number], 946055922 5, 51494550, 52296774, 603850052, 8934181, 6838327 ####[facility] (DEFAULT)[address] [place] [address] 64560 VLDL. 42 mg/dL High 5-40 [facility] Comment on above: Performed By: #### [id number], 228898139 5, 86493384, 31254269, 310927160, 1937657, 8156391 ####[facility] (DEFAULT)[address] [place] [address] 24974 Microalb/Creat Ratioon 12-03 U Creatinine 201.74 mg/dL Invalid Interpretation Code [facility] Comment on above: Performed By: #### [id number] ####[facility] (DEFAULT)[address] [place] [address] 90859 U Micro Albumin 6.9 mcg/mL Normal 0.0-18.9 [facility] Comment on above: Performed By: #### [id number] ####[facility] (DEFAULT)[address] [place] [address] 05553 U Micro/Creat 3 mcg/mg Normal 0-30 [facility] Comment on above: Performed By: #### [id number] ####[facility] (DEFAULT)[address] [place] [address] 43519 PSA Diagnosticon 12-03-2023 PSA Diagnostic 0.54 ng/mL Normal 0.00-4.00 [facility] Comment on above: Result Comment: [employer] Clinical System (Chemiluminescence) Values obtained with different assay methods or kits cannot be used interchangeably. Results cannot be interpreted as absolute evidence of the presence or absence of malignant disease. Performed By: #### 1 [id number], 4334020951, 37649203, 49830987, 227570736, 5804465, 9115254 ####[facility] (DEFAULT)[address] [place], [place] [address] Provider Orderson 12-03-2023 Provider Orders [id number] w/ Reflex to FT4on 12-03 TSH Qn 3.62 m[IU]/L Normal 0.45-5.33 [facility] Comment on above: Performed By: #### [id number], 733486976 5, 87951960, 47435496, 342788940, 2304242, 6683276 ####[facility] (DEFAULT)[address] [place] [address] Consent Formson 06-20-2023 Consent Forms [id number]#1.00[facility] Lab - Toxicology Resultson 0 06-20-2023 Lab - Toxicology Results [id number][facility].00[facility] Summary[facility] 2022 ED Clinical Summary [facility] ? Urgent Care [address] [place] [address] 69851 Clinical Summary PERSON INFORMATION Name: RANJANA MCDONOUGH Age: 52 Years Sex: MALE : 1970 MRN: Acct#: Visit Reason: Medical screening exam; [facility] PHYSICAL/DRUG SCREEN Arrival: 06/19/2023 09:26:24 Discharge: 06/19/2023 10:09:00 LOS: 000 00:43 Check In: 06/19/2023 09:26:24 Checkout: 06/19/2023 10:09:00 Address: [address] [place] [address] PCP: Provider, None PROVIDER INFORMATION Provider Role Assigned Unassigned Darrick FELTON, Linda ED Nurse 06/19/2023 09:30:54 Jason Esparza PA-C ED PA 06/19/2023 09:31:56 VITALS INFORMATION Vital Sign Triage Latest Temperature Tympanic Temperature Temporal Artery Pulse Rate O2 Sat 97 % 97 % Respiratory Rate Blood Pressure /82 mmHg /82 mmHg MEDICAL INFORMATION Medications Given: Allergy Information: No known allergies PHYSICIAN DOCUMENTATION DISCHARGE INFORMATION: Discharge Disposition: Home Discharge Location: Home PATIENT EDUCATION INFORMATION Instructions: Follow-Up: DIAGNOSIS: Patient Understands: Yes - Patient/family/caregiver verbalizes understanding of instructions given Comment: Normal [facility] ED Patient Summaryon 023 ED Patient Summary [facility] ? Urgent Care [address] [place] [address] 17653 PATIENT DISCHARGE INSTRUCTIONS Patient Information Name: RANJANA MCDONOUGH Age: 52 Years Date of : 1970 [facility]: [id number] Reason For Visit: Medical screening exam; [facility] PHYSICAL/DRUG SCREEN Arrival Time: 06/19/2023 09:26:24 Primary Care Physician: Provider, None Attending Physician: Jason Esparza PA-C Comment: Patient Education Medication Information: The exam and treatment you received today in the [facility] Emergency Department were for an urgent problem and are not intended as complete care. It is important for you to follow up with a doctor, nurse practitioner, or physician?s research assistant for ongoing care. If your symptoms become worse or you do not improve as expected and you are unable to reach your usual health care provider, you should return to the Emergency Department, we are available 24 hours a day. For those patients who have received Radiology results, the interpretation of your X-ray as given to you by our Emergency Department physician is only a preliminary report. The Radiologist will review your films and if there is a change in the diagnosis you will be notified by phone. Please make sure you have provided a working phone number so we can reach you if necessary. In the event that you had a lab culture while you were a patient in the Emergency Department, you will be notified by phone if there is a need to change your antibiotic. Please make sure you have provided a working phone number so we can reach you if necessary. [facility] Emergency Department has provided you with a complete list of medications post discharge. Please inform your engine maintenance mechanic/provider of your visit and for further instruction on these medications. Any specific questions regarding your chronic medications and dosages should be discussed with your primary care physician(s) and/or pharmacist. Medications to Continue That Have Not Changed Other Medications allopurinol (allopurinol 100 mg oral tablet) 1 tab(s) Oral 2 times a day. bisoprolol (bisoprolol 10 mg oral tablet) 1 tab(s) Oral every day. rosuvastatin (rosuvastatin 20 mg oral tablet) 1 tab(s) Oral every day. sildenafil (sildenafil 50 mg oral tablet) 1 tab(s) Oral every day as needed for erectile dysfunction. testosterone (Testosterone Cypionate 200 mg/mL intramuscular solution) 1 Milliliter Intramuscular every 4 weeks. Visit Information Visit Diagnosis: Diagnoses This Visit Medical screening exam ([id number] 3AB) If you received any narcotics, sedation, or any other medication that causes drowsiness for the next 24 hours, unless otherwise directed: ? Do not drive a car. ? Do not operate machinery such as power tools, lawn mowers, drills, sewing machines, or stoves ? Avoid alcoholic beverages and drugs for allergies, nerves, or sleep ? Do not make important personal or business decisions or sign any legal documents Reason for Visit: medical screening exam- pre employment physical [facility] Allergies: Substance Reaction Symptoms Type Comments No known allergies Drug Vital Signs: Vitals and Measurements this Visit (last charted value for your 06/19/2023 visit) Vital Signs This Visit Peripheral Pulse Rate: 76 bpm Respiratory Rate: 18 br/min Systolic Blood Pressure: 140 mmHg Diastolic Blood Pressure: 82 mmHg SpO2: 97 % Oxygen Therapy: Room air Blood Pressure Method: Manual Measurements This Visit Height/Length Measured: 182.88 cm Weight Measured: 119.29 kg Body Mass Index: 35.67 kg/m2 BSA Measured: 2.46 m2 Problems List: Problem Onset Comments Hypercholesteremia Hypertension Major Tests and Procedures: The following procedures and tests were performed during your ED visit. Laboratory Radiology Cardiology Viruses or Bacteria What?s got you sick? Antibiotics only treat bacterial infections. Viral illnesses cannot be treated with antibiotics. When an antibiotic is not prescribed, ask your healthcare professional for tips on how to relieve symptoms and feel better. Usual Cause Illness Viruses Bacteria Antibiotic Needed Cold/Runny Nose NO Bronchitis/Chest Cold (in otherwise healthy children and adults) NO Whooping Cough Yes Flu NO Strep Throat Yes Sore Throat (except strep) NO Fluid in the middle ear (otitis media with effusion) NO Urinary Tract Infection Yes Antibiotics Aren?t Always the Answer www.cdc.gov/getsmart GET SMART Know When Antibiotics Work U.S[place] Department of Health and Human Services Centers for Disease Control and Prevention June 2014 [facility] Triage Panel 10on 06-19-2023 Drug Screen Complete Collected [facility] Comment on above: Performed By: #### [id number] #### [facility] (DEFAULT) [address] [place] [id number] Urgent Care Note- Provideron 06-19-2023 Urgent Care Note- Provider Patient: RANJANA MCDONOUGH Age: 52 years Sex: MALE : 1970 Associated Diagnoses: None Author: Jason Esparza PA-C History of Present Illness Patient presents for a pre-employment physical. He is cleared for work. Exam is normal. See scanned document. GENERAL: Awake, alert and oriented to person, place and situation. Well nourished, well developed, non toxic, NAD. Moves around the department freely. EYES: Pupils equal, round and react to light. EOMI. ENMT: Ears: TM's and external canals with normal inspection bilaterally. Nose: normal inspection. Mouth: oral mucosa is pink and still moist. Throat: normal inspection. NECK: No bony TTP, normal range of motion, no meningismus, trachea is midline. No anterior or posterior lymphadenopathy. CARDIOVASCULAR: Regular rate and rhythm. +S1 +S2. No murmurs or rubs. RESPIRATORY: Clear to auscultation bilaterally without rales, rhonchi or wheeze. ABDOMEN: Soft, completely non tender, abdomen is non distended, without rebound tenderness, guarding or peritoneal signs. Bowel sounds present times 4 quadrants and normoactive. No bruits. No masses. No CVA TTP. BACK: There is no bony TTP, no scoliosis, full ROM without difficulty. EXTREMITIES: No cyanosis, clubbing or edema. Good muscle tone, moves all extremities fully. Squat normal. SKIN: Normal inspection, no visualized rash. NEUROLOGIC: Light touch sensation in tact, strength 5/5 in bilateral upper and lower extremities. Normal reflexes. Steady gait. Normal mentation. No focal neurological deficits appreciated. PSYCHIATRIC: Mood and affect appropriate. Health Status Allergies: No active allergies have been recorded.. Medications: (Selected) Documented Medications Documented Testosterone Cypionate 200 mg/mL intramuscular solution: 200 mg = 1 mL, IM, q4wk, 0 Refill(s) allopurinol 100 mg oral tablet: 100 mg = 1 tab(s), PO, BID, 180 tab(s), 0 Refill(s) bisoprolol 10 mg oral tablet: 10 mg = 1 tab(s), PO, Daily, 30 tab(s), 0 Refill(s) sildenafil 50 mg oral tablet: 50 mg = 1 tab(s), PO, Daily, PRN: for erectile dysfunction, 0 Refill(s). Past Medical/ Family/ Social History Medical history: No active or resolved past medical history items have been selected or recorded.. Surgical history: No active procedure history items have been selected or recorded.. Family history: No family history items have been selected or recorded.. Social history: Social & Psychosocial Habits No Data Available . Problem list: No qualifying data available . [Electronically Signed on: 06/19/2023 10:01 EDT] Jason Esparza PA-C [Verified on: 06/19/2023 10:01 EDT] Jason Esparza PA-C Normal [facility] [address] 023 Urgent Care Record [facility] ? Urgent Care [address] [place] [address] PATIENT DISCHARGE INSTRUCTIONS Patient Information Name: RANJANA MCDONOUGH Age: 52 Years Date of : 1970 Reason For Visit: Medical screening exam; [facility] PHYSICAL/DRUG SCREEN Arrival Time: 06/19/2023 09:26:24 Primary Care Physician: Provider, None Attending Physician: Jason Esparza PA-C Comment: Visit Diagnosis: Diagnoses This Visit Medical screening exam ([id number] 3AB) If you received any narcotics, sedation, or any other medication that causes drowsiness for the next 24 hours, unless otherwise directed: ? Do not drive a car. ? Do not operate machinery such as power tools, lawn mowers, drills, sewing machines, or stoves ? Avoid alcoholic beverages and drugs for allergies, nerves, or sleep ? Do not make important personal or business decisions or sign any legal documents Medication Information: The exam and treatment you received today in the [facility] were for an urgent problem and are not intended as complete care. It is important for you to follow up with a doctor, nurse practitioner, or physician?s research assistant for ongoing care. If your symptoms become worse or you do not improve as expected and you are unable to reach your usual health care provider, you should return to the Emergency Department, we are available 24 hours a day. For those patients who have received Radiology results, the interpretation of your X-ray as given to you by our Urgent Care physician is only a preliminary report. The Radiologist will review your films and if there is a change in the diagnosis you will be notified by phone. Please make sure you have provided a working phone number so we can reach you if necessary. In the event that you had a lab culture while you were a patient in the Urgent Care, you will be notified by phone if there is a need to change your antibiotic. Please make sure you have provided a working phone number so we can reach you if necessary. [facility] has provided you with a complete list of medications post discharge. Please inform your engine maintenance mechanic/provider of your visit and for further instruction on these medications. Any specific questions regarding your chronic medications and dosages should be discussed with your primary care physician(s) and/or pharmacist. Medications to Continue That Have Not Changed Other Medications allopurinol (allopurinol 100 mg oral tablet) 1 tab(s) Oral 2 times a day. bisoprolol (bisoprolol 10 mg oral tablet) 1 tab(s) Oral every day. rosuvastatin (rosuvastatin 20 mg oral tablet) 1 tab(s) Oral every day. sildenafil (sildenafil 50 mg oral tablet) 1 tab(s) Oral every day as needed for erectile dysfunction. testosterone (Testosterone Cypionate 200 mg/mL intramuscular solution) 1 Milliliter Intramuscular every 4 weeks. Visit Information Allergies: Substance Reaction Symptoms Type Comments No known allergies Drug Vital Signs: Vitals and Measurements this Visit (last charted value for your 06/19/2023 visit) Vital Signs This Visit Peripheral Pulse Rate: 76 bpm Respiratory Rate: 18 br/min Systolic Blood Pressure: 140 mmHg Diastolic Blood Pressure: 82 mmHg SpO2: 97 % Oxygen Therapy: Room air Blood Pressure Method: Manual Measurements This Visit Height/Length Measured: 182.88 cm Weight Measured: 119.29 kg Body Mass Index: 35.67 kg/m2 BSA Measured: 2.46 m2 Problems List: Problem Onset Comments Hypercholesteremia Hypertension Patient Education Viruses or Bacteria What?s got you sick? Antibiotics only treat bacterial infections. Viral illnesses cannot be treated with antibiotics. When an antibiotic is not prescribed, ask your healthcare professional for tips on how to relieve symptoms and feel better. Usual Cause Illness Viruses Bacteria Antibiotic Needed Cold/Runny Nose NO Bronchitis/Chest Cold (in otherwise healthy children and adults) NO Whooping Cough Yes Flu NO Strep Throat Yes Sore Throat (except strep) NO Fluid in the middle ear (otitis media with effusion) NO Urinary Tract Infection Yes Antibiotics Aren?t Always the Answer www.cdc.gov/getsmart GET SMART Know When Antibiotics Work U.S. Department of Health and Human Services Centers for Disease Control and Prevention June 2014 Normal [facility] XR HIP GENERAL 3V PELV/AP/LA T LEFTon 01-11-2022 [facility] C-Reactive Proteinon 022 CRP IV <0.3 Normal [facility] Specialist Comment on above: Performed By: #### CBCAD, CMP, CRP, URIC , ESR #### [facility] [address] [place], [place] [id number] Complete Blood Count with Au to Diffon 12-11-2021 Basophils (Bld) [#/Vol] 0.11 10*3/uL Normal 0.00-0.20 [facility] Specialist Comment on above: Performed By: #### CBCAD, CMP, CRP, URIC , ESR #### [facility] [address], [place] [id number] Basophils/100 WBC (Bld) 1.1 % Normal [facility] Specialist Comment on above: Performed By: #### CBCAD, CMP, CRP, URIC , ESR #### [facility] [address], [place] [id number] Eosinophils (Bld) [#/Vol] 0.14 10*3/uL Normal 0.02-0.50 [facility] Specialist Comment on above: Performed By: #### CBCAD, CMP, CRP, URIC , ESR #### [facility] [address], [place] [id number] Eosinophils/100 WBC (Bld) 1.4 % Normal [facility] Specialist Comment on above: Performed By: #### CBCAD, CMP, CRP, URIC , ESR #### [facility] [address], [place] [id number] Erythrocyte distribution width (RBC) [Ratio] 13.4 % Normal 11.0-15.0 [facility] Specialist Comment on above: Performed By: #### CBCAD, CMP, CRP, URIC , ESR #### [facility] [address], [place] [id number] Hematocrit (Bld) [Volume fraction] 50.4 % High 38.5-50.0 [facility] Specialist Comment on above: Performed By: #### CBCAD, CMP, CRP, URIC , ESR #### [facility] [address], [place] [id number] Hemoglobin (Bld) [Mass/Vol] 16.6 g/dL Normal 13.0-17.1 [facility] Specialist Comment on above: Performed By: #### CBCAD, CMP, CRP, URIC , ESR #### [facility] [address], [place] [id number] Lymphocytes (Bld) [#/Vol] 2.6 10*3/uL Normal 0.9-3.9 [facility] Specialist Comment on above: Performed By: #### CBCAD, CMP, CRP, URIC , ESR #### [facility] [address], [place] [id number] Lymphocytes/100 WBC (Bld) 25.7 % Normal [facility] Specialist Comment on above: Performed By: #### CBCAD, CMP, CRP, URIC , ESR #### [facility] [address], [place] [id number] MCH (RBC) [Entitic mass] 31.1 pg Normal 27.0-33.0 [facility] Specialist Comment on above: Performed By: #### CBCAD, CMP, CRP, URIC , ESR #### [facility] [address], [place] [id number] MCHC (RBC) [Mass/Vol] 32.9 g/dL Normal 32.0-36.0 [facility] Specialist Comment on above: Performed By: #### CBCAD, CMP, CRP, URIC , ESR #### [facility] [address], [place] [id number] MCV (RBC) [Entitic vol] 94 fL Normal 80-100 [facility] Specialist Comment on above: Performed By: #### CBCAD, CMP, CRP, URIC , ESR #### [facility] [address], [place] [id number] Monocytes (Bld) [#/Vol] 0.8 10*3/uL Normal 0.2-0.9 [facility] Specialist Comment on above: Performed By: #### CBCAD, CMP, CRP, URIC , ESR #### [facility] [address], [place] [id number] Monocytes/100 WBC (Bld) 7.7 % Normal [facility] Specialist Comment on above: Performed By: #### CBCAD, CMP, CRP, URIC , ESR #### [facility] [address], [place] [id number] Neutrophils (Bld) [#/Vol] 6.4 10*3/uL Normal 1.5-7.8 [facility] Specialist Comment on above: Performed By: #### CBCAD, CMP, CRP, URIC , ESR #### [facility] [address], [place] [id number] Neutrophils/100 WBC (Bld) 63.4 % Normal [facility] Specialist Comment on above: Performed By: #### CBCAD, CMP, CRP, URIC , ESR #### [facility] [address], [place] [id number] Platelet mean volume (Bld) [Entitic vol] 10.90 fL Normal 7.50-12.50 [facility] Specialist Comment on above: Performed By: #### CBCAD, CMP, CRP, URIC , ESR #### [facility] [address], [place] [id number] Platelets (Bld) [#/Vol] 303 10*3/uL Normal 140-400 [facility] Physician Comment on above: Performed By: #### CBCAD, CMP, CRP, URIC , ESR #### [facility] [address], [place] [id number] RBC (Bld) [#/Vol] 5.34 10*6/uL Normal 4.20-5.80 [facility] Physician Comment on above: Performed By: #### CBCAD, CMP, CRP, URIC , ESR #### [facility] [address], [place] [id number] RDW-SD 46.4 fL Normal 37.0-50.0 [facility] Specialist Comment on above: Performed By: #### CBCAD, CMP, CRP, URIC , ESR #### [facility] [address], [place] [id number] WBC (Bld) [#/Vol] 10.1 10*3/uL Normal 3.8-11.0 [facility] Specialist Comment on above: Performed By: #### CBCAD, CMP, CRP, URIC , ESR #### [facility] [address], [place] [id number] Comprehensive Metabolic Pane ivonne 12-11-2021 Albumin [Mass/Vol] 5.2 g/dL High 3.6-5.1 [facility] Physician Comment on above: Performed By: #### CBCAD, CMP, CRP, URIC , ESR #### [facility] [address], [place] [id number] Albumin/Globuli n [Mass ratio] 2.0 {ratio} Normal 1.0-2.5 [facility] Physician Comment on above: Performed By: #### CBCAD, CMP, CRP, URIC , ESR #### [facility] [address], [place] [id number] ALP [Catalytic activity/Vol] 118 U/L Normal 40-129 [facility] Physician Comment on above: Performed By: #### CBCAD, CMP, CRP, URIC , ESR #### [facility] [address], [place] [id number] ALT [Catalytic activity/Vol] 33 U/L Normal 9-46 [facility] Physician Comment on above: Result Comment: 09/13/2021 Female referen ce range changed. Performed By: #### C BCAD, CMP, CRP, URIC, ESR #### [facility] [address], [place] [id number] Anion gap [Moles/Vol] 20 mmol/L Normal 12-20 [facility] Physician Comment on above: Result Comment: Effective 10/19/2019 refer ence range changed. Performed By: #### C BCAD, CMP, CRP, URIC, ESR #### [facility] [address], [place] [id number] AST [Catalytic activity/Vol] 21 U/L Normal 10-40 [facility] Physician Comment on above: Performed By: #### CBCAD, CMP, CRP, URIC , ESR #### [facility] [address], [place] [id number] BUN/CREA 19 Ratio Normal 6-22 [facility] Physician Comment on above: Performed By: #### CBCAD, CMP, CRP, URIC , ESR #### [facility] [address] [facility] [place] [id number] Calcium [Mass/Vol] 10.5 mg/dL High 8.6-10.2 [facility] Physician Comment on above: Performed By: #### CBCAD, CMP, CRP, URIC , ESR #### [facility] [address], [place] [id number] Chloride [Moles/Vol] 100 mmol/L Normal 98-107 [facility] Specialist Comment on above: Performed By: #### CBCAD, CMP, CRP, URIC , ESR #### [facility] [address] [place] [id number] CO2 [Moles/Vol] 25 mmol/L Normal 20-31 [facility] Specialist Comment on above: Performed By: #### CBCAD, CMP, CRP, URIC , ESR #### [facility] [address], [place] [id number] Creatinine [Mass/Vol] 1.1 mg/dL Normal 0.7-1.4 [facility] Specialist Comment on above: Performed By: #### CBCAD, CMP, CRP, URIC , ESR #### [facility] [address], [place] [id number] eGFRAA 89 mL/min/1.73m2 Normal >60 [facility] Specialist Comment on above: Performed By: #### CBCAD, CMP, CRP, URIC , ESR #### [facility] [address], [place] [id number] eGFRNAA 73 mL/min/1.73m2 Normal >60 [facility] Specialist Comment on above: Performed By: #### CBCAD, CMP, CRP, URIC , ESR #### [facility] [address], [place] [id number] Globulin (S) [Mass/Vol] 2.6 g/dL Normal 1.9-3.7 [facility] Specialist Comment on above: Performed By: #### CBCAD, CMP, CRP, URIC , ESR #### [facility] [address], [place] [id number] Glucose [Mass/Vol] 114 mg/dL High 65-99 [facility] Specialist Comment on above: Result Comment: For FASTING Glucose --- ADA reference ranges: Normal 65-99 mg/dl Prediabetes 100-125 Diabetes >/= 126 Performed By: #### C BCAD, CMP, CRP, URIC, ESR #### [facility] [address] [place], [place] [id number] Potassium [Moles/Vol] 5.1 mmol/L Normal 3.5-5.5 [facility] Physician Comment on above: Performed By: #### CBCAD, CMP, CRP, URIC , ESR #### [facility] [address] [place], [place] [id number] Protein [Mass/Vol] 7.8 g/dL Normal 6.1-8.1 [facility] Physician Comment on above: Performed By: #### CBCAD, CMP, CRP, URIC , ESR #### [facility] [address] [place], [place] [id number] Sodium [Moles/Vol] 139 mmol/L Normal 135-146 [facility] Physician Comment on above: Performed By: #### CBCAD, CMP, CRP, URIC , ESR #### [facility] [address] [place], [place] [id number] TBIL <0.[address] [facility] Physician Comment on above: Performed By: #### CBCAD, CMP, CRP, URIC , ESR #### [facility] [address], [place] [id number] Urea nitrogen [Mass/Vol] 21 mg/dL Normal 7-25 [facility] Physician Comment on above: Performed By: #### CBCAD, CMP, CRP, URIC , ESR #### [facility] [address] [place], [place] [id number] RBC Sedimentation Rateon ESR (Bld) [Velocity] 22.00 mm/h High 0.00-20.00 [facility] Physician Comment on above: Performed By: #### CBCAD, CMP, CRP, URIC , ESR #### [facility] [address] [place], [place] [id number] Uric Acidon 12-11-2021 URIC 6.7 mg/dL Normal 4.0-8.0 [facility] Physician Comment on above: Result Comment: Reference range change 1 10/30/2016. Prior reference range F 2.4-5.7mg/dL. M 3.4-7.0 mg/dL. Performed By: #### C BCAD, CMP, CRP, URIC, ESR #### [facility] [address] [place], [place] [id number] Hepatic Function Panelon Albumin [Mass/Vol] 5.1 g/dL Normal 3.6-5.1 [facility] Specialist Comment on above: Performed By: #### HEP #### [facility] [address] [place], [place] [id number] Albumin/Globuli n [Mass ratio] 2.0 {ratio} Normal 1.0-2.5 [facility] Specialist Comment on above: Performed By: #### HEP #### [facility] [address] [place], [place] [id number] ALP [Catalytic activity/Vol] 110 U/L Normal 40-129 [facility] Specialist Comment on above: Performed By: #### HEP #### [facility] [address] [place], [place] [id number] ALT [Catalytic activity/Vol] 89 U/L High 9-46 [facility] Physician Comment on above: Result Comment: 09/13/2021 Female referen ce range changed. Performed By: #### H EP #### [facility] [address] [place], [place] [id number] AST [Catalytic activity/Vol] 47 U/L High 10-40 [facility] Specialist Comment on above: Performed By: #### HEP #### [facility] [address] [place], [place] [id number] DBIL <0.2 Normal [facility] Specialist Comment on above: Result Comment: Reference range change 1 10/30/2016. Prior reference range 0.1-0.3 mg/dL. Performed By: #### H EP #### [facility] [address] [place], [place] [id number] Globulin (S) [Mass/Vol] 2.6 g/dL Normal 1.9-3.7 [facility] Specialist Comment on above: Performed By: #### HEP #### [facility] [address] [place], [place] [id number] Protein [Mass/Vol] 7.7 g/dL Normal 6.1-8.1 [facility] Specialist Comment on above: Performed By: #### HEP #### [facility] [address] [place], [place] [id number] TBIL <0.[address] [facility] Physician Comment on above: Performed By: #### HEP #### [facility] [address] [place], [place] [id number] XR foot BI 2Von 06-14-2021 XR foot BI 2V [facility] [address] [address] XRay Report Signed Patient: Ranjana Mcdonough MR#: [id number] : 1970 Acct:[id number] Age/Sex: 50 / M ADM Date: 06/14/21 Loc: ICXD Room: Type: [facility] Attending Dr: Michael Ward MD Ordering Provider: Michael Ward MD Date of Service: 06/14/21 XR/XR foot BI 2V: FOOT PAIN Copies to: Michael Ward MD XR foot BI 2V 06/14/2021 2:00 PM SIGNS AND SYMPTOMS: History of gout, intermittent foot pain PROTOCOL: Frontal and lateral radiographs of the bilateral feet COMPARISON: None FINDINGS: There are subtle cortical erosions along the medial margins of the left first metatarsophalangeal junction. No significant soft tissue swelling is noted. The joint spaces are otherwise preserved. There is plantar surface calcaneal spurring bilaterally. No acute bony injury. XR/XR foot BI 2V IMPRESSION: There are subtle cortical erosions along the medial margins of the left first metatarsophalangeal junction. No significant soft tissue swelling is noted. No acute bony injury. Impression dictated by: Gabriele Bowen M.D.06/14/2021 5:11 PM Dictation Location: [place] [address] Transcribed By: [facility] 06/14/211710 Dictated By: Gabriele Bowen II, MD 06/14/211709 Signed By: 06/14/211710 [facility] XR hand BI 2Von 06-14-2021 XR hand BI 2V [facility] [address] [address] XRay Report Signed Patient: Ranjana Mcdonough MR#: [id number] : 1970 Acct:[id number] Age/Sex: 50 / M ADM Date: 06/14/21 Loc: ICXD Room: Type: [facility] Attending Dr: Michael Ward MD Ordering Provider: Michael Ward MD Date of Service: 06/14/21 XR/XR hand BI 2V: HAND AND WRIST PAIN Copies to: Michael Ward MD XR hand BI 2V 06/14/2021 2:00 PM SIGNS AND SYMPTOMS: History of gout, abnormal blood work PROTOCOL: Frontal and lateral graphs of the bilateral hands COMPARISON: None FINDINGS: There is no evidence of fracture or dislocation. The joint spaces are preserved. No significant soft tissue swelling. No evidence of bony erosion. XR/XR hand BI 2V IMPRESSION: No acute bony abnormalities. No evidence of bony erosion or significant soft tissue swelling. Impression dictated by: Gabriele Bowen M.D.06/14/2021 5:12 PM Dictation Location: [place] [address] Transcribed By: [facility] 06/14/211711 Dictated By: Gabriele Bwoen II, MD 06/14/211710 Signed By: 06/14/211711 [facility] XR HIP LT 1V WO PELVISon XR HIP LT 1V WO PELVIS [address] [place] [address] Patient: RANJANA MCDONOUGH Exam Date: 10/24/2018 : 1970 Gender:M Ordering : DR ANISH PATEL . Admission #: [id number] Family : DR CYNTHIA CORNEJO Order #: [id number] CLICK HERE TO VIEW EXAM RADIOLOGY REPORT PROCEDURE: RADIOGRAPH HIP LEFT 1 VIEW WITHOUT PELVIS COMPARISON: XR HIP LT 2-3V W PELVIS, 10/24/2018. INDICATIONS: Post reduction for left hip dislocation FINDINGS: BONES: A single frontal view shows the prosthetic head of the left hip within the prosthetic acetabular cup. SOFT TISSUES: No visible soft tissue swelling or radiopaque foreign body. OTHER: Negative. CONCLUSION: 1. Successful reduction of the left hip joint prosthesis. No visible hardware fracture or evidence of loosening. 2. No visible bone fracture. Dictated by: Cynthia Cornejo M.D. on 10/24/2018 at 14:34 Approved by: Cynthia Cornejo M.D. on 10/24/2018 at 14:36 Normal [facility] XR HIP LT 2-3V W PELVISon XR HIP LT 2-3V W PELVIS [address] [place] [address] Patient: RANJANA MCDONOUGH Exam Date: 10/24/2018 : 1970 Gender:M Ordering : DR ANISH PATEL . Admission #: [id number] Family : Order #: [id number] CLICK HERE TO VIEW EXAM RADIOLOGY REPORT PROCEDURE: RADIOGRAPH HIP LEFT 2-3 VIEWS WITH PELVIS COMPARISON: None. INDICATIONS: Acute left hip pain after fall FINDINGS: BONES: Bilateral total hip replacements. The left prosthetic femoral head is dislocated from the prosthetic acetabular cup and positioned cephalad. SOFT TISSUES: No visible soft tissue swelling or radiopaque foreign body. OTHER: Negative. CONCLUSION: 1. Dislocated left hip prosthesis. Dictated by: Cynthia Cornejo M.D. on 10/24/2018 at 13:19 Approved by: Cynthia Cornejo M.D. on 10/24/2018 at 13:21 Normal [facility] Basic Metabolic Panlon 10-04 Anion gap 3 molar conc 12 mmol/L Normal 9-18 [facility] Comment on above: Performed By: #### CBC, BMP ####[address] Calcium mass conc 8.9 mg/dL Normal 8.5-10.2 [facility] Comment on above: Performed By: #### CBC, BMP ####[place] [address] [address] Chloride molar conc 99 mmol/L Normal 97-105 [facility] Comment on above: Performed By: #### CBC, BMP ####[address] CO2 molar conc 26 mmol/L Normal 22-30 [facility] Comment on above: Performed By: #### CBC, BMP ####[place] [address] [address] Creatinine mass conc 0.92 mg/dL Normal 0.73-1.22 [facility] Comment on above: Performed By: #### ADINA, BMP ####[place] [id number] eGFR- Amer. >60 Normal >60 [facility] Comment on above: Performed By: #### CBC, BMP ####[address] GFR/1.73 sq M predicted among non-blacks MDRD vol rate/area (S/P/Bld) mL/min/{1.73_m2} Normal >60 [facility] Comment on above: Result Comment: eGFR (Estimated GFR) Uni ts of measure: mL/min/1.73 meters squaredeGFR is derived from the reexpressed MDRD Study equation using the following parameters: serum creatinine, age, gender and race. The creatinine assay has been calibrated to be traceable to IDMS.An eGFR <60 mL/min/1.73m2 for >3 months is consistent with chronic kidney disease. Refer to KDOQI guidelines for clinical interpretation.In patients with unstable renal function, e.g. those with acute kidney injury, the eGFR may not accurately reflect actual GFR. Performed By: #### C BC BMP ####[address] Glucose mass conc 103 mg/dL High 74-99 [facility] Comment on above: Performed By: #### CBC, BMP ####[place] [id number] Potassium molar conc 4.7 mmol/L Normal 3.7-5.1 [facility] Comment on above: Performed By: #### CBC, BMP ####[address] Sodium molar conc 137 mmol/L Normal 136-144 [facility] Comment on above: Performed By: #### CBC, BMP ####[place] [id number] Urea nitrogen mass conc 12 mg/dL Normal 9-24 [facility] Comment on above: Performed By: #### CBC, BMP ####[place] [id number] CBCon 10-04-2018 Erythrocyte distribution width Auto Ratio (RBC) 14.2 % Normal 11.5-15.0 [facility] Comment on above: Performed By: #### CBC, BMP ####[place] [id number] Hematocrit Auto Volume Fraction (Bld) 37.1 % Low 39.0-51.0 [facility] Comment on above: Performed By: #### CBC, BMP ####[place] [id number] Hemoglobin mass conc (Bld) 12.1 g/dL Low 13.0-17.0 [facility] Comment on above: Performed By: #### CBC, BMP ####[place] [id number] MCH Auto Entitic mass (RBC) 30.6 pG Normal 26.0-34.0 [facility] Comment on above: Performed By: #### CBC, BMP ####[address] MCHC Auto mass conc (RBC) 32.6 g/dL Normal 30.5-36.0 [facility] Comment on above: Performed By: #### CBC, BMP ####[address] MCV Auto Entitic volume (RBC) 93.9 fL Normal 80.0-100.0 [facility] Comment on above: Performed By: #### CBC, BMP ####[place] [id number] Platelet mean volume Auto Entitic volume (Bld) 11.0 fL Normal 9.0-12.7 [facility] Comment on above: Performed By: #### CBC, BMP ####[address] Platelets Auto #/vol (Bld) 248 10*3/uL Normal 150-400 [facility] Comment on above: Performed By: #### CBC, BMP ####[facility] [phone] RBC Auto #/vol (Bld) 3.95 10*6/uL Low 4.20-6.00 [facility] Comment on above: Performed By: #### CBC, BMP ####[facility] [phone] WBC Auto #/vol (Bld) 9.00 10*3/uL Normal 3.70-11.00 [facility] Comment on above: Performed By: #### CBC, BMP ####[facility] [phone] CNDSon 10-04-2018 CNDS HNO ID: [id number] thor: Isa (Res) Amnae: Orthopaedic SurgeryAuthor Type: ResidentType: Discharge SummariesFiled: 10/04/2018 1:36 PMNote Text: Attestation signed by Jaylen Casiano MD at 10/05/2018 3:06 PM. Agree with above. Patient underwent an unremarkable left total hipreplacement in the setting of left hip AVN. Weightbearing as tolerated,posterior hip precautions. ASA for DVT ppx. Plan to see back in 1 month forx-rays, wound check, and progress check. Sciatic nerve function intact atdischarge.Nuha Dugan chemical laboratory technician, [facility] at [facility] Director, Division of Musculoskeletal OncologyCo-Director of Sarcoma Care, [facility] CenterPager: [phone] [phone] PM [facility] [place] [phone] or [phone]) [facility] O N F I D E N T I A L I N F O R M A T I O N ORTHOPAEDIC DISCHARGE SUMMARYPatient Name: Ranjana [place] Date: 10/03/2018Discharge Date: 10/04/2018Attending Physician: Penny Dugan Diagnosis/Reason for Hospitalization: Avascular necrosis of boneof left hip (HCC) [M87.052]Secondary Diagnoses:Patient Active Hospital Problem List: Avascular necrosis of bone of left hip (HCC) (08/21/2018)Operations During Hospitalization:Procedure(s) and Anesthesia Type: * ARTHROPLASTY REPLACE JOINT TOTAL HIP - SpinalHospital Course:Please see perioperative HANDP for complete pre-admission details.The patient [facility] at [facility] where they were taken to theoperating room for left FARA. Please see operative note from that date forcomplete procedure details. The procedure went without complication andthe patient was taken from the OR to the PACU [facility]. Once on the floor, their vital signs, pain, medicationadministration, and activity were all closely monitored and wellcontrolled. Physical therapy, occupational therapy, and case managementwere consulted for in-house therapy and discharge planning. The patientworked with physical therapy who recommended they be discharged to home.The patient was seen and examined multiple times each day and continued toimprove on a daily basis. The wound was examined and dressing wasclean/dry/intact until day of discharge. The patient tolerated oralintake well and pain was well controlled on PO medications. The patientwas prepared for discharge and this was arranged with case management.The patient was then discharged to home in stable condition.Hemodynamics:Patient was hemodynamically stable postoperatively.Relevant labs included:Hemoglobin (g/dL)Date Value10/04/2018 12.1 (L)Hematocrit (%)Date ValueDVT Status:Patient had no signs/symptoms of DVT, so no ultrasound was done duringhospital course.DVT Prophylaxis:Enteric Coated Aspirin 81 mg PO B.I.D. x 4 weeksConsults during hospital stay:Case management was consulted during hospital course for appropriatedischarge planning for patient. and Internal Medicine was consulted duringhospital course for medical management.Patient Condition at Discharge: StableDischarge Disposition:HomeInformation Provided to the Patient:Patient given copy of Discharge InstructionsDIET: No restrictionsACTIVITY:Weight bearing: Full or WBATPhysical therapy:Home Physical TherapyDischarge Medications:Current Discharge Medication ListSTART taking these medicationsaspirin, enteric coated (ASPIRIN, ENTERIC COATED) 81 mgTake 81 mg by mouth twice daily.Qty: 56 tablet Refills: 0docusate sodium (COLACE) 100 mgTake 100 mg by mouth twice daily.Qty: 60 capsule Refills: 2meloxicam (MOBIC) 15 mgTake 15 mg by mouth once daily.Qty: 14 tablet Refills: 0oxyCODONE IR (ROXICODONE) 5-10 mgTake 5-10 mg by mouth every 4 hours as needed for Pain.Earliest Fill Date: 10/02/18Qty: 60 tablet Refills: 0Associated Diagnoses:Avascular necrosis of bone of left hip (HCC)pantoprazole DR (PROTONIX) 20 mgTake 20 mg by mouth once daily.Qty: 14 tablet Refills: 0CONTINUE these medications which have NOT CHANGEDamLODIPine (NORVASC) 5 mgTake 5 mg by mouth once daily.citalopram (CeleXA) 20 mgTake 20 mg by mouth once daily.Future Appointments:Future AppointmentsDate Time Provider Department [place]10/28/2018 8:40 AM [id number]-ORSI GENERAL XRAY A21 RADMN RADIO A BLDG10/28/2018 9:15 AM [id number], RACHAEL (RN) ORTHMN ORTH A AND NA Patient to follow up with Dr. Casiano as scheduled Call office prn.Electronically SIGNED by Licensed Independent Practitioner:Isa Luna MDOrthopaedic Surgery ResidentPager [phone] [phone] PMPlease page 2BONE [phone]) from 5p-6a and weekends for any issues.Orthopaedic and Rheumatologic [place] [facility] , A41 pager: [phone] [facility] PROGRESSon 10-04-2018 Protein mass conc HNO ID: [id number]: Saud Marieervice: General Internal MedicineAuthor Type: PhysicianType: Progress NotesFiled: 10/04/2018 12:11 PMNote Text:PROGRESS NOTE - INTERNAL MEDICINEPATIENT NAME: Ranjana McdonoughMRN: [id number] DATE: October 04, 2018SERVICE TIME: 12:11 PMPCP: See Khalil II, [facility] HEALTHDMITTING PHYSICIAN: Jaylen Casiano MD MDINTERVAL HISTORY OF PRESENT ILLNESS: Pt seen denied cp/ sobREVIEW OF SYSTEMS:GENERAL: No weight loss, malaise or feversRESPIRATORY: Negative for cough, hemoptysis, wheezing, COPD, dyspnea orshortness of breathCARDIOVASCULAR: Negative for chest pain, leg swelling, hypertension, CHFor palpitationsGI: No nausea, vomiting, or diarrheaGU: No history of dysuria, frequency or incontinencePSYCH: Negative for sleep disturbance, mood disorder and recentpsychosocial stressors.ENDOCRINE: Negative for cold or heat intolerance, polyuria, polydipsia andgoiterAll other reviewed and negative other than HPI.PRIOR TO ADMISSION MEDICATIONS:Prescriptions Prior to Admission:amLODIPine (NORVASC) 5 mg tablet Take 5 mg by mouth once daily. Disp:Rfl: 10/03/2018 at 0330citalopram (CELEXA) 20 mg tablet Take 20 mg by mouth once daily. Disp:Rfl: 10/03/2018 at 0330INs AND OUT SUMMARY:Intake/Output Summary (Last 24 hours) at 10/04/18 1211Last data filed at 10/04/18 0651 Gross per 24 hourIntake 1740 mlOutput 1600 mlNet 140 mlPHYSICAL EXAM:Patient Vitals for the past 24 hrs: BP Temp Temp src Pulse Resp FcQ40310/04/18 1009 - - - - 16 -10/04/18 0852 124/78 37 ?C (98.6 ?F) - 94 18 96 %10/04/18 0534 123/73 37.3 ?C (99.1 ?F) Oral 87 18 97 %10/04/18 0122 108/70 37.2 ?C (99 ?F) Oral 89 18 95 %10/03/18 2126 119/79 37.2 ?C (98.9 ?F) Oral 83 18 96 %10/03/18 1711 123/79 36.7 ?C (98.1 ?F) Oral 80 18 96 %10/03/18 1259 116/74 36.7 ?C (98.1 ?F) - 98 18 96 %GENERAL: Alert, no distress, cooperativeSKIN: Skin color, texture, turgor normal. No rashes or lesions.NECK: No jugulovenous distention, No carotid bruits, Carotid pulse normalcontour, SuppleLUNGS: Lungs clear to auscultation. Good diaphragmatic excursion.CARDIAC: Normal S1 and S2; no rubs, murmurs, or gallopsABDOMEN: Abdomen soft, non-tender. BS normal. No masses or organomegaly.EXTREMETIES: Extremities normal. No deformities, edema, clubbing or skindiscoloration.NEURO: Alert, oriented X 3, Cranial nerves II-XII intact, Gait normal.Reflexes normal and symmetric. Sensation grossly intact.PULSES: 2+ radial, 2+ carotidDATA:CBC, Coags, BMP, Mg, PhosRecent Labs 419WBC 9.00HB 12.1*HCT 37.1*PLT 248NA 137K 4.7CHLOR 99CO2 26BUN 12CREAT 0.92GLUC 103*CA 8.9CSF AND DilantinLiver Function, Amylase, AND LipaseIMAGINGReviewed and discussed with the patient.IN-PATIENT MEDICATIONS:Current hospital medications:acetaminophen 1,000 mg tab(s) (TYLENOL) 1,000 mg ORAL q 8 Haluminum-magnesium hydroxide-simethicone 200-200-20 mg/5 mL 30 mL(MAALOX,MYLANTA,MAG-AL PLUS) 30 mL ORAL q 2 H PRNamLODIPine 5 mg tab(s) (NORVASC) 5 mg ORAL DAILYascorbic acid (vitamin C) 500 mg tab(s) (VITAMIN C) 500 mg ORAL BID wMEALSaspirin, enteric coated 81 mg tab(s) 81 mg ORAL BIDbisacodyl EC 10 mg tab(s) (DULCOLAX) 10 mg ORAL DAILYcitalopram 20 mg tab(s) (CeleXA) 20 mg ORAL DAILYdocusate sodium 100 mg cap(s) (COLACE) 100 mg ORAL BIDketorolac 30 mg injection (TORADOL) 30 mg INTRAVENOUS q 6 H PRNlactated ringers infusion 5-30 mL/hr INTRAVENOUS CONTINUOUSlidocaine 10 mg/mL (1 %) 1-2 mg injection (XYLOCAINE) 0.1-0.2 mLINTRADERMAL PRNmagnesium hydroxide 400 mg/5 mL 30 mL (MOM) 30 mL ORAL DAILY PRNNaCl 0.9% iv infusion 100 mL/hr INTRAVENOUS CONTINUOUSondansetron (PF) 4 mg injection (ZOFRAN) 4 mg INTRAVENOUS q 6 H PRNondansetron 4 mg tab(s) (ZOFRAN) 4 mg ORAL q 6 H PRNoxyCODONE IR 5-10 mg tab(s) (ROXICODONE) 5-10 mg ORAL q 3 H PRNPROBLEM LIST:ACTIVE PROBLEM LISTOsteonecrosis of Right Hip (Hcc)Avn (Avascular Necrosis of Bone) (Hcc)Avascular Necrosis of Bone of Left Hip (Hcc)ASSESSMENT AND PLAN: 1. htn2 avn3 medically ok dcSIGNATURE: Saud Aldana, MDDATE: October 04, 2018TIME: 12:11 PM [facility] Protein mass conc HNO ID: [id number]: Isa (Hollis) CherylSerbrade: Orthopaedic SurgeryAuthor Type: ResidentType: Progress NotesFiled: 10/04/2018 10:38 AMNote Text:ORTHOPAEDIC SURGERYPOST-OP PROGRESS NOTEDecemb2017 10:37 AMProcedure: Procedure(s) and Anesthesia Type: * ARTHROPLASTY REPLACE JOINT TOTAL HIP - Spinal (Date: 10/03/2018)Subjective: Pain controlled, no nausea/vomiting, no chest pain, noshortness of breath.Vitals: BP 124/78 Pulse 94 Temp 37 ?C (98.6 ?F) Resp 16 Ht182.9 cm (6') Wt 100.7 kg (222 lb) SpO2 96% BMI 30.11 kg/m?Intake/Output Summary (Last 24 hours) at 10/04/18 1037Last data filed at 10/04/18 0651 Gross per 24 hourIntake 1740 mlOutput 1600 mlNet 140 mlPhysical Examination:General: alert/oriented x3, in no apparent distressLower Ext: LLE: 5/5 ankle plantar/dorsiflex RLE: 5/5 ankle plantar/dorsiflex SILT saphenous, PFCN, LFCN, sural, DP, SP, plantar (L1-S1 intact) 2+ DP, PT pulses bilat, feet/toes warm bilat; <2sec CRLab:CBC, Coags, BMP, Mg, PhosRecent Labs [id number] 9.00HB 12.1*HCT 37.1*PLT 248NA 137K 4.7CHLOR 99CO2 26BUN 12CREAT 0.92GLUC 103*CA 8.9Impression/Plan: POD 1s/p left FARA- Physical Therapy: WBAT- Diet: regular- Pain control: oxycodone- Dressing management: aquacel to stay on for 7 days- Nunez: none- DVT prophylaxis: IPCD and ASA 81 mg BID- Antibiotic: periop for 24 hours- Case management for discharge planning- Disposition: home Annita Luna MDOrthopaedic Surgery Resident PGY-4Pager [phone] [facility] THERAPY NTon 10-04-2018 THERAPY NT HNO ID: [id number] thor: See (Jeff Newton PT ASSISTService: Physical TherapyAuthor Type: Physical Therapy AssistantType: Therapy (PT/OT/Speech/Resp)Filed: 10/04/2018 5:04 PMNote Text: Attestation signed by Becky MorrisPtRobina Kebede at 10/10/2018 10:54 AMI reviewed and agree with the documentation corresponding to this therapyvisit.SIGNATURE: Becky Kebede, PTDATE: October 10, 2018TIME: 10:54 AM Physical Therapy TreatmentSERVICE DATE: 10/04/2018SERVICE TIME: 1110 to 1150ROOM: [id number] Discharge Disposition: Home PTRecommended Discharge Equipment: No equipment needs anticipatedPT Recommendations to Nursing: Ambulate with device;To bathroom;Inhalls;OOB for Meals;With assist of 1 personDevice: Wheeled WalkerPT 6 Clicks Score: 24Precautions/Activity Restrictions: Total Hip Replacement;Weight BearingRestrictionsExtremity With Weight Bearing Restricted: Left Lower ExtremityLeft Lower Extremity Weight Bearing Status: WBATTotal Hip Replacement Precautions: PosteriorASSESSMENT :Patient presents with THR. Requires skilled PT for gait/steps/HEP.Patient Disposition at Start of Session: Supine in BedPatient Disposition at End of Session: OOB in Chair;Call Briggs inReach;SCDsTolerated Full SessionPhysical Therapy Problem List: Edema;Pain;Safety Deficits;Impaired SelfCare;Decreased Activity Tolerance;Decreased Range Of Motion;DecreasedStrength;Functiona l Mobility ImpairmentPatient /Caregiver Goals: Walk;Go HomeGoals for Plan of Care:Able to perform HEP with: IndependentRolling with: Modified IndependentTransfer supine to/from sit with: Modified IndependentTransfer sit to/from stand with: Modified IndependentAmbulate with: Modified IndependentDistance: 200 feetDevice: Crutch(es)Ambulate up and down steps with: SupervisionNumber of steps: 6Device: Crutch(es);RailProgress Toward Goals: Progressing as expectedRehab Potential: GoodPLAN:Treatment Frequency (times per week): 7 Current admissionTreatment Interventions: Education;Self Care / Home Management;EnergyConservation Training;Strengthening;Functional MobilityTraining;Modalities;Edema Management;Pain ManagementModalities: IcePlan of Care developed with: PatientTREATMENT INTERVENTIONS:Therapy Diagnosis: Reduced mobility-otherInterventions Provided: Therapeutic Exercise (99903);Therapeutic Activity(24291);Gait Training (67804)Therapeutic Exercise (44595) Treatment Minutes: 151 unitSkilled Intervention(s): Instruction in therapeutic exerciseSupine-ap/qs/gs/hs; Seated-ap/LAQ/HS x 10-20 repsTherapeutic Activity (67120) Treatment Minutes: 151 unitSkilled Intervention(s): Instructed patient in supine to sit pushing withupper extremities to sit upInstructed patient in supine to and from sit pushing with upperextremities to sit upInstruction in sit to stand technique with proper hand placement and bodypositioning at edge of bed/chairInstruction in stand to sit technique with lower extremities touchingchair/bed and reaching back for surfaceInstruction in sit to and from stand technique with proper hand placementand body positioning at edge of bed/chairGait Training (39956) Treatment Minutes: 101 unitSkilled Intervention(s): Instruction in sit to stand technique with properhand placement and body positioning at edge of bed/chair, Instruction instand to sit technique with LE's touching chair/bed and reaching back forsurface, Instruction in sequencing, gait pattern, Instruction incorrection of gait deviations and Instruction in stair negotiationTotal Timed Code Treatment Minutes: 40Total Treatment Time (minutes): 40FUNCTIONAL G CODE:PT 6 Clicks Score: 24 (10/04/18 1110)Mobility: Walking and Moving Around Current Status (G8978): CI ()Mobility: Walking and Moving Around Goal Status (G8979): CI ()Based on clinical assessment and the score on the 6 Clicks FunctionalAssessment Tool, the G code and corresponding severity modifiers aredocumented above.SUBJECTIVE:Current Hospital Course: Chart reviewed and no significant medical updatesrelevant to therapy were notedReason for Physical Therapy Consult : s/p L THRRelevant Past Medical History: AVN, HTN, R THR 08/19/18Patient Report: im doing well Home EnvironmentPatient Lives With: FamilyAssistance Available: 24 HourEntry To Home: Stairs;Without RailNumber Of Stairs Into Home: 3Number Of Stairs To Bed/Bath: 1 flightStairs to Bed/Bath with: Unilateral RailEquipment Owned: Cane;Crutch(es);ADL Kit;Commode-Raised;Wheeled WalkerPrior Functional Level: Within Functional LimitsOBJECTIVE:CURRENT FUNCTIONAL STATUS:Current Functional Mobility Assist Level Additional InformationRollingSupine to Sit SupervisionSit to SupineScooting SupervisionSit to Stand SupervisionStand to Sit SupervisionBed to Chair Supervision Bed To Chair Transfer Type: Stand PivotBed To Chair Transfer Equipment: Wheeled WalkerToilet/Commode SupervisionGait Supervision Gait Device: Wheeled Walker Gait Distance (feet): 200Stairs Supervision Stairs Device: Cane;Crutch(es)Number of Stairs: 6Curb StepCar TransferGait Deviations Left Lower Extremity: Weight bearing decreased;Stance timedecreasedGeneral Gait Deviations: Verito decreased;Step length decreased;Flexedtrunk posture;Shuffling GaitBalance: Static Standing;Dynamic StandingStatic Standing Balance: SupervisionDynamic Standing Balance: SupervisionMERCY HEALTH WEST HOSPITALM: 7: Walk 25 feet or morePlease see discipline specific clinical documentation flowsheet forcomplete details for this therapy evaluation/treatment.SIGNATURE: See Newton PTA PATIENT NAME: Ranjana MannTE: October 04, 2018 : 5:02 PM [facility] THERAPY NT HNO ID: [id number] thor: Yumiko (Ot) Natalieervice: Occupational TherapyAuthor Type: Occupational TherapistType: Therapy (PT/OT/Speech/Resp)Filed: 10/04/2018 10:35 AMNote Text:OCCUPATIONAL THERAPY MISSED VISITSERVICE DATE: 10/04/2018SERVICE TIME: 915 to 915ROOM: [id number] Evaluation. Patient not seen due to Declined need for OTservices. Pt reported knowledge of precautions, modified ADL techniquesand use of adaptive equipment from prior hip surgery last month. Will signoff.SIGNATURE: DHIRAJ Liz/Angelic PATIENT NAME: Ranjana MannTE: October 04, 2018 : 10:35 AM [facility] ANES Jonas 10-03-2018 ANES POST HNO ID: [id number] thor: Oriana Terrazaservice: AnesthesiologyAuthor Type: AnesthesiologistType: Anesthesia PostOpFiled: 10/03/2018 11:44 AMNote Text:POST ANESTHESIA EVALUATION NOTESERVICE DATE: 10/03/2018SERVICE TIME: 11:43 AMDOB: 1970Vitals: 10/03/1809Temp: 36.7 ?C (98.1 ?F) 36.3 ?C (97.3 ?F) 36.5 ?C (97.7 ?F) 10/03/1810P: 122/79 118/73 114/73 121/68 10/03/1810Pulse: 85 87 65 70 10/03/1809Resp: 16 16 18 10/03/1810SpO2: 94% 96% 94% 96%Validated Vital Signs: YesPOST ANES STATUS: No apparent anesthetic complications. The patient isappropriately hydrated with stable respiratory and cardiovascular status.Patient has safe and adequate airway control. The patient has appropriatepain relief and no significant post operative nausea or vomiting. Thepatient has achieved baseline mental status.Intra-Operative Events: No Significant Anesthesia EventsFurther assessment by Anesthesia Service: NoneOther Remarks:SIGNATURE: Oriana Sommers MD PATIENT NAME: Ranjana MannTE: October 03, 2018 : 11:43 AM PAGER/CONTACT #: [facility] ANES PREOPon 10-03-2018 ANES PREOP HNO ID: [id number] thor: Oriana Terrazaservice: AnesthesiologyAuthor Type: AnesthesiologistType: Anesthesia PreOpFiled: 10/03/2018 7:04 AMNote Text:REGIONAL ANESTHESIOLOGY DAY OF SURGERY NOTEPATIENT NAME: Ranjana McdonoughMRN: [id number]: 1970Procedure(s) (LRB):ARTHROPLASTY REPLACE JOINT TOTAL HIP (Left)Surgeon(s):Jaylen Casiano MDEstimated body mass index is 30.11 kg/m? as calculated from the following: Height as of 09/16/18: 182.9 cm (6'). Weight as of 09/16/18: 100.7 kg (222 lb).ASA Class: 2Adequate NPO status: YesAllergies:ALLERGIESNo Known AllergiesAirway Assessment: MP 2; Neck ROM: Full ROM without neurologic symptoms;Airway Evaluation: No significant abnormalitiesDentition: Teeth intactcap intact molarSymptoms of Sleep Apnea: DeniesMost recent lab results:Hemoglobin 14.8 09/16/2018Hematocrit 45.1 09/16/2018Potassium 4.4 09/16/2018Platelet Count 374 09/16/2018Creatinine 0.92 09/16/2018EKG:normal EKG, normal sinus rhythmVitals: 600BP: 146/96Pulse: 72Resp: 16Temp: 36.7 ?C (98.1 ?F)TempSrc: Temporal ArterySpO2: 96%Previous Anesthesia: No history of adverse event Family history ofanesthetic problems: NoneAdditional Physical Exam:Lungs: Lungs clear to auscultation. Good diaphragmatic excursion.Cardiac: Normal S1 and S2; no rubs, no murmurs and no gallopsAdditional pertinent findings: N/AOther Medical Problems/ Important Considerations:Denies chest pain and SOB with exertion.Chronic Beta Naveed medication administered within 24 hours: N/AAnesthetic risks, benefits, alternatives, personnel and consent discussed:YesPatient agrees to proceed: YesBlood Products: Not anticipated for this procedureAnesthetic Plan: Spinal with GA as back-up; Standard ASA MonitorsPain Management Plan: Parenteral or OralEPIC Chart ReviewACTIVE PROBLEM LISTOsteonecrosis of Right Hip (Hcc)Avn (Avascular Necrosis of Bone) (Hcc)Avascular Necrosis of Bone of Left Hip (Hcc)PAST MEDICAL HISTORYDiagnosis Date- Alcohol use 3 bourbons a night- Depression- HTN (hypertension)- Osteonecrosis of right hip (HCC)PAST SURGICAL HISTORYProcedure Laterality Date- TOTAL HIP REPLACEMENT Right 08/19/2018FAMILY HISTORYProblem Relation Age of Onset- Family history unknown: YesSocial History:Social HistorySubstance Use Topics- Smoking status: Former Smoker Types: Cigarettes Quit date: 09/16/2002- Smokeless tobacco: Never Used- Alcohol use 3.0 oz/week 3 Shots of liquor per week Comment: Daily, whisky. shot glass with ice.No current facility-administered medications on file prior to encounter.Current Outpatient Prescriptions on File Prior to Encounter:amLODIPine (NORVASC) 5 mg tablet Take 5 mg by mouth once daily.citalopram (CELEXA) 20 mg tablet Take 20 mg by mouth once daily.[facility]patient medications reviewed in [facility].I have interviewed and examined the patient. I have reviewed the medicalrecord and/or the pre-anesthesia evaluation, pertinent labs, and testresults.Significant changes in the patient's condition since the History andPhysical, not otherwise documented in primary service progress notes: NoThis contains updated information obtained within 48 hours ofSurgery/Procedure.SIGNATURE: Oriana Sommers MD PATIENT NAME: Ranjana McdonoughDATE: October 03, 2018 : 7:03 AM PAGER/CONTACT #: [facility] BRIEF OP NOTon 10-03-2018 BRIEF OP NOT HNO ID: [id number] thor: Aniceto Owen) SuraceService: Orthopaedic SurgeryAuthor Type: ResidentType: Brief Op NoteFiled: 10/03/2018 9:11 AMNote Text:BRIEF OP NOTELOG ID: [id number]/Procedure Date: 10/03/2018Incision/Procedure Start Time: 8:05 AMIncision Close/Procedure End Time:Surgeon(s)/Proceduralist(s) and Interpretative Dancer(s):Surgeon(s) and Role: * Jaylen Casiano MD - Primary * Aniceto Mccrackenace - Resident - AssistingProcedure(s): L THAAnesthesia: SpinalFindings: L Hip AVNEstimated Blood Loss: 150Specimens: NoneComplications: NonePre-Op/Pre-Procedure Diagnosis: L Hip AVNPost-Op/Post-Procedure Diagnosis: Avascular necrosis of bone of left hip(HCC) [M87.052]SIGNATURE: Aniceto Mcclelland MD PATIENT NAME: Ranjana McdonoughDATE: October 03, 2018 : 9:10 AM PAGER/CONTACT #: [phone] [facility] CASE MGT INIT Carlos 2017 CASE MGT INIT SHARON HNO ID: [id number]: Steff () KamerService: (none)Author Type: Social WorkerType: Care Mgt Initial AssessmentFiled: 10/03/2018 1:59 PMNote Text:CARE MANAGEMENT: ASSESSMENT AND DISCHARGE PLANSERVICE DATE: 10/03/2018SERVICE TIME: 1:48 PMPRIMARY CARE PHYSICIAN:See Khalil II, MDPhone: [id number] STATUS: InpatientNeeds Prior to Discharge: To Be Determined;Home Care OrderMEDICAL:Patient/Representativ e Stated Goals:To improve my functional statusHealth Insurance: [facility] CHOICE PLUSHealth Issues Impacting Discharge Plan: HTN, ETOHLast Admission Date: Previous admit date: 08/19/2018Is this Within the Past 30 days? NoAdvance Directive:Current Advance Directive: Health Care Power of AttorneyIn Chart: YesUp To Date and Valid: YesHealth Literacy:1. How often do you need to have someone help you when you readinstructions, pamphlets, or other written material from your doctor orpharmacy? Never - 12. How confident are you filling out medical forms by yourself? Extremely- 1If Patient scores > 3 on either question, the following interventions wereput into place:Patient did not score > 3FUNCTIONAL AND COGNITIVE/BEHAVIORALPRIOR TO ADMISSION:Baseline Mental Status: Alert AND Oriented, Person, Place , Time andSituationFunctional Status: IndependentDoes Patient Currently Receive Any Community Services or Home Care?Physical TherapistEquipment Prior to Admission: CrutchesAdelitakerHas the Patient Been in a [facility] Facility in the Past 30 days? NoSOCIAL:Living Arrangement: HomeLives With: SpouseFinancial Resources: Employed: Has insurancePrimary Contact: Extended Emergency Contact InformationPrimary Emergency Contact: Yung Mcdonough Msytvqch: SpouseSupportive: YesOther Important Patient Contacts: NoneCaregiver Assessment:Caregiver is ready, willing and able to meet the patient's needs asrecommended by the inter-professional team? YesPatient's transition needs and plan for meeting these needs: Home withHome PTDoes the patient have an acute stroke diagnosis, or has the patient had astroke during this admission? NoMedication Adherence:I am convinced of the importance of my prescription medication: Agreecompletely - 0I worry that my prescription medication will do more harm than good to meDisagree completely - 0I feel financially burdened by my bgv-oc-alabub expenses for myprescription medication: Disagree completely - 0Patient is categorized as low risk < 2Are you interested in bedside delivery of your medications? NoFood Concerns:In the Last Month, Have You had Trouble Getting Food? No trouble gettingfoodDuring the Last Month, Have You Worried Whether Your Food Would Run OutBefore You Had Enough Money to Buy More? NoIs the Patient Psychosocially Complex? NoASSESSMENT AND PLAN:Medical Needs: NonePsychosocial Needs: NoneFREEDOM OF CHOICE EXPLAINED:Yes [facility] Recently used themPOTENTIAL TRANSITION PLANSHome CareProvider Name Hayley and Tx had R ORIF in August and now L ORIF. Pt's states its the end of , got a 2 for 1 deal . He used [facility] for HHC and would like to usethem again, referral sent. He plans to go home tomorrow. willtransport. Will need prescriptions since bedside delivery not available onthe weekend. Has all necessary DME.SIGNATURE: MARIELOS Dumont PATIENT NAME: Ranjana McdonoughDATE: October 03, 2018 : 1:48 PM PAGER/CONTACT #: [phone] [facility] CONSULTon 10-03-2018 CONSULT HNO ID: [id number] thor: Saud Marieervice: General Internal MedicineAuthor Type: PhysicianType: ConsultsFiled: 10/03/2018 4:14 PMNote Text:INTERNAL MEDICINE CONSULT HISTORY AND PHYSICALPLEASE DO NOT REMOVE FROM THE CHART OR MODIFY PRINTED COPYPatient Name: Ranjana McdonoughMRN: [id number] CARE PHYSICIAN: See Khalil II, [facility] [place] [facility] [place]ULTING PHYSICIAN: Jaylen Casiano MD MDDATE of CONSULT: 4:13 PMHPI: This is a 48 year old male who presents with *lt hip2 pain 3.10 no cp/ sobPAST MEDICAL HISTORY:PAST MEDICAL HISTORYDiagnosis Date- Alcohol use 3 bourbons a night- Depression- HTN (hypertension)- Osteonecrosis of right hip (HCC)PAST SURGICAL HISTORY:PAST SURGICAL HISTORYProcedure Laterality Date- TOTAL HIP REPLACEMENT Right 08/19/2018FAMILY HISTORY:FAMILY HISTORYProblem Relation Age of Onset- Family history unknown: YesSOCIAL HISTORY:Social HistorySubstance Use Topics- Smoking status: Former Smoker Types: Cigarettes Quit date: 09/16/2002- Smokeless tobacco: Never Used- Alcohol use 3.0 oz/week 3 Shots of liquor per week Comment: Daily, whisky. shot glass with ice.ALLERGIES:ALLERGIESNo Known AllergiesPRIOR TO ADMISSION MEDICATIONS:Prescriptions Prior to Admission:amLODIPine (NORVASC) 5 mg tablet Take 5 mg by mouth once daily. Disp:Rfl: 10/03/2018 at 0330citalopram (CELEXA) 20 mg tablet Take 20 mg by mouth once daily. Disp:Rfl: 10/03/2018 at 0330REVIEW OF SYSTEMS:GENERAL: No weight loss, malaise or feversHEENT: Negative for frequent or significant headaches, No changes inhearing or vision, no nose bleeds or other nasal problemsNECK: Negative for lumps, goiter, pain and significant neck swellingRESPIRATORY: Negative for cough, hemoptysis, wheezing, COPD, dyspnea orshortness of breathCARDIOVASCULAR: Negative for chest pain, leg swelling, hypertension, CHFor palpitationsGI: No nausea, vomiting, or diarrheaSKIN: Negative for lesions, rash, and itchingHEMATOLOGY/LYMPHOLOGY: Negative for prolonged bleeding, bruising easily orswollen nodesENDOCRINE: Negative for cold or heat intolerance, polyuria, polydipsia andgoiterNEURO: No history of headaches, syncope, paralysis, seizures or tremorsAll other reviewed and negative other than HPI.PHYSICAL EXAM:Blood pressure 116/74, pulse 98, temperature 36.7 ?C (98.1 ?F), resp. rate18, height 182.9 cm (6'), weight 100.7 kg (222 lb), SpO2 96 %.General appearance: well appearing, alert, in no acute distress andwell-hydrated, well nourishedSkin: Skin color, texture, turgor normal, no suspicious rashes or lesionsHead: normalEyes: Anicteric sclera. Pupils are equally round and reactive to light.Extraocular movements are intact.Ears: external ears normal, canals clear, TM's normalNose/Sinuses: NegativeOropharynx: Lips, mucosa, and tongue normal, teeth and gums normal,oropharynx normalNeck: Supple, no adenopathy; thyroid symmetric, normal size, no bruitsBack: no pain to palpation over spine or costovertebral angles, reflexesare 2+ and symmetric, motor and sensory appear to be normalLungs: clear to auscultation no wheezing or rhonchiHeart: RRR without murmur, gallop, or rubs. No ectopyAbdomen: Normal abdominal exam, Abdomen soft, non-tender. Bowel soundsnormal. No masses, organomegalyExtremities: Extremities normal. No deformities, edema, or skindiscoloration. Good capillary refill.Peripheral pulses: NormalNeuro: Gait normal. Reflexes normal and symmetric. Sensation grosslyintact.DATA:CBC, Coags, BMP, Mg, PhosCSF AND DilantinLiver Function, Amylase, AND LipaseRadiology:Imaging reviewed and discussed with the patient.IN-PATIENT MEDICATIONS:Current hospital medications:acetaminophen 1,000 mg tab(s) (TYLENOL) 1,000 mg ORAL q 8 Haluminum-magnesium hydroxide-simethicone 200-200-20 mg/5 mL 30 mL(MAALOX,MYLANTA,MAG-AL PLUS) 30 mL ORAL q 2 H PRN[START ON 10/04/2018] amLODIPine 5 mg tab(s) (NORVASC) 5 mg ORAL DAILYascorbic acid (vitamin C) 500 mg tab(s) (VITAMIN C) 500 mg ORAL BID wMEALS[START ON 10/04/2018] aspirin, enteric coated 81 mg tab(s) 81 mg ORAL BID[START ON 10/04/2018] bisacodyl EC 10 mg tab(s) (DULCOLAX) 10 mg ORALDAILYceFAZolin iv piggyback 1 g in D5W (iso-osmotic) 50 mL (ANCEF) 1 gINTRAVENOUS q 8 H[START ON 10/04/2018] citalopram 20 mg tab(s) (CeleXA) 20 mg ORAL DAILYdocusate sodium 100 mg cap(s) (COLACE) 100 mg ORAL BIDketorolac 30 mg injection (TORADOL) 30 mg INTRAVENOUS q 6 H PRNlactated ringers infusion 5-30 mL/hr INTRAVENOUS CONTINUOUSlidocaine 10 mg/mL (1 %) 1-2 mg injection (XYLOCAINE) 0.1-0.2 mLINTRADERMAL PRNmagnesium hydroxide 400 mg/5 mL 30 mL (MOM) 30 mL ORAL DAILY PRNNaCl 0.9% iv infusion 100 mL/hr INTRAVENOUS CONTINUOUSondansetron (PF) 4 mg injection (ZOFRAN) 4 mg INTRAVENOUS q 6 H PRNondansetron 4 mg tab(s) (ZOFRAN) 4 mg ORAL q 6 H PRNoxyCODONE IR 5-10 mg tab(s) (ROXICODONE) 5-10 mg ORAL q 3 H PRNtranexamic acid 1,000 mg in NaCl 0.9% 100 mL (CYKLOKAPRON) 1,000 mgINTRAVENOUS ONCEtranexamic acid 1,000 mg in NaCl 0.9% 100 mL (CYKLOKAPRON) 1,000 mgINTRAVENOUS ONCEACTIVE PROBLEM LIST:ACTIVE PROBLEM LISTOsteonecrosis of Right Hip (Hcc)Avn (Avascular Necrosis of Bone) (Hcc)Avascular Necrosis of Bone of Left Hip (Hcc)ASSESSMENT AND PLAN:1. Lt hip2 htn on med controlled3 avn4 pt.toSIGNATURE: Saud Aldana, MDDATE: October 03, 2018TIME: 4:13 PM [facility] NURSING PROGon 10-03-2018 Protein mass conc HNO ID: [id number]: Josefina (Rn) Gaetanor, RNService: NursingAuthor Type: Registered NurseType: Nursing Progress NoteFiled: 10/03/2018 3:11 PMNote Text: Nursing Progress NotePatient Name: Ranjana McdonoughMRN: [id number] [id number] Daily Note:1500Bedside report received from Martha Hunter, RNPatient resting in bedNo distress notedRespirations equal and unlaboredIV fluids infusing as orderedCall light within reachAll needs met at this timeThis note was completed by: Josefina Harrington RN [facility] Protein mass conc HNO ID: [id number]: Erika MorrisRn) Nas RNService: (none)Author Type: Registered NurseType: Nursing Progress NoteFiled: 10/03/2018 9:32 AMNote Text:Discharge Status:Patient is Drowsy, and is no airway issues. Skin condition was warm andpink.Transported to recovery room via bed with siderails up. Accompanied byanesthetist and PA-C/SA. Straight cathed at end of procedure 500ml. Normal [facility] Protein mass conc HNO ID: [id number]: Erika Riggs) Nas RNService: (none)Author Type: Registered NurseType: Nursing Progress NoteFiled: 10/03/2018 7:35 AMNote Text:Patient transported to the OR via cart, accompanied by LT AND MP.Level of consciousness: Alert and Oriented x 3Emotional Status:CalmSensory Impairments: NoLanguage Barrier: NoMobility Impairments: NoAddressed any patient concerns regarding consents, OR environment, andanesthetics. Normal [facility] Protein mass conc HNO ID: [id number]: Erika Riggs) Nas RNService: (none)Author Type: Registered NurseType: Nursing Progress NoteFiled: 10/03/2018 7:33 AMNote Text:Body temperature maintained by maintaining OR room temperature dygawqu61-59 degrees F, providing patient with warm bath blankets and limitingareas of exposure. Normal [facility] Protein mass conc HNO ID: [id number]: Eloisa Storey, RNService: (none)Author Type: Registered NurseType: Nursing Progress NoteFiled: 10/03/2018 7:27 AMNote Text: Nursing Progress NotePatient Name: Ranjana Cotton: [id number] [facility]* Daily Note:Pt. A+OX3. Lungs are CTA. Good warmth, mobility, sensation,and pulses LLE. Pt. Denies pain.This note was completed by: Eloisa Storey RN [facility] OPERATIVE NOon 10-03-2018 OPERATIVE NO HNO ID: [id number] thor: FELECIA Duganervice: Orthopaedic SurgeryAuthor Type: PhysicianType: Operative ReportFiled: 10/03/2018 9:12 AMNote Text:OPERATIVE/PROCEDURE REPORTLOG ID: [id number]/PROCEDURE DATE: 10/03/2018INCISION/PROCEDURE START TIME: 8:05 AMINCISION CLOSE/PROCEDURE END TIME: 9:21AMSURGEON(S)/PROCEDURALIST(S) AND PLANT PULLER(S):Surgeon(s) and Role: * Jaylen Casiano MD - Primary * Aniceto (Hollis) Stas - Resident - AssistingPhysician Interpretative Dancer: Ivy SanchezPRE-OP/PRE-PROCEDURE DIAGNOSIS: Avascular necrosis of bone of left hip(HCC) [M87.052]POST-OP/POST-PROCEDURE DIAGNOSIS: Avascular necrosis of bone of left hip(HCC) [M87.052]?Operation:1. Left Total Hip Arthroplasty (CPT 35656)??ANESTHESIA: Spinal?Estimate Blood Loss: 150cc?Fluids: Crystalloids: 1800cc Colloids: NoneUOP: N/A (no nunez - straight cath'd at the end of the case)?Implants:1) Biomet G7 PPS Acetabular Component, Size 58, 3-Hole2) Biomet E-Poly Acetabular Polyethylene, Size 58 OD, 36 ID3) Biolox Delta Ceramic Femoral Head, Size 36+04) Biomet Microplasty Femoral Stem, Size 12 SO???Procedure Details:Operative Indications:The patient is an 48 year old male with a history EtOH-associatedosteonecrosis of bilateral hips, right side is more symptomatic. 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 Sheunderwent a successful right total hip arthroplasty in early August2018. He is now here for his left hip to be addressed. Ambulation andfunctionality has become progressively more limited over the course oftime secondary to the pain taken root from the AVN condition. Multipleconservative measures to relieve the pain have been attempted, but thesehave failed. After the risks, benefits, and alternatives were discussed,the he opted for a total hip arthroplasty.?Risks, Benefits, and AlternativesThe patient was counseled extensively regarding the options for treatmentincluding operative and non-operative forms of treatment and afterthorough counseling has elected to proceed with surgical treatment.? Thepatient was counseled that with surgical treatment there is thepossibility that their condition might not improve or may even worsen.??Specific surgical risks discussed include bleeding, the need for possibleblood product transfusion, infection, post-operative pain, damage tonerves and blood vessels, wound dehiscence and wound healing problems,limb length discrepency, incomplete relief of pain, post-operativeinstability (dislocation), the need for physical therapy,?inability toreturn to desired level of function, post-operative limp, generalizeddissatisfaction with the surgical procedure, complex regional painsyndrome, as well as medical complications such as DVT, PE, anestheticcomplications, cardiopulmonary complications and .??Pre-operatively, the patient was counseled as to the incidence of MRSAinfection in our institution, and was appropriately screened with nasalswab testing, and treated based on those results.?The patient expressed understanding of all the issues described above andhas elected to proceed with the aforementioned procedure. ??Operative Procedure:After the appropriate surgical site was marked, the patient was brought tothe operating room. A huddle was performed with all pertinent surgicalpersonnel, anesthesia personnel, and nursing staff. The patient then wastransferred from their bed to the operating table [place] and underwentspinal anesthesia. A Nunez catheter was not inserted, but he was straightcatheterized at the end of the case in the usual sterile manner. Thepatient was then positioned in the lateral decubitus position, using theInnomed hip positioners. The operative leg/site was appropriatelyidentified and pre-draped. All bony prominences were well padded, and thecontralateral infrapatellar knee cap was identified using an EKG lead. Theleg lengths were then checked prior to draping, so as to establish aproprioceptive ?feel? for comparison purposes. The leg was then preppedand draped in the usual sterile manner, using Chloraprep solution. Oncethe prep was allowed 3 minutes to dry, the leg was draped in sterilefashion, using an AuFranc drape technique. A surgical time-out wasperformed. Preoperative antibiotics were verified given within one hour ofincision time, prior to incision.?A curve-linear incision was made in the skin at the postero-lateral aspectof the greater trochanter, and carried down to the deep fascia using asharp blade. Pinpoint subcutaneous ?bleeders? were then identified andcauterized. The fascia of the gluteus yaneth and IT band was incised inline with the incision, over the mid-line of the femur. A Charnleyretractor was then inserted, being careful to assess the position of thesciatic nerve, and the bursal tissue removed. The gluteus medius wasidentified, using a cob to find the plane between the medius and minimus.A blunt Cobra retractor was placed in this place, giving excellentexposure to the piriformis tendon. The gluteus minimus fascia was thenincised on the immediate posterior aspect of the piriformis tendon. Thepiriformis tendon was released from its insertion in the fossa, and taggedwith a #1 Vicryl suture. The Bills was then used to carefully dissect theplane between the minimus and the hip capsule and the blunt Cobra wasreplaced in this place, giving excellent exposure to the capsule. Thecapsule was released in an ?H? fashion from the backside of the femur, andtagged at the inferior and superior corners with a #1 Vicryl. The shorteternal rotators and quadratus femoris were also released off the backsideof the femur. The superior capsule was then released from the superiorfemoral neck. We then checked limb lengths by landmarks, including theEKG leads on the opposite leg in relation to the inferior pole thepatella, as well as the heels. The leg was internally rotated and thefemoral head was dislocated from the acetabulum.?The femoral neck was identified, and appropriate measurements were takenusing a femoral broach in order to identify the angle of the neck cut, aswell as the level (matching the center of the femoral head with the centerof rotation on the broach). After 2 blunt Cobra retractors were placed oneither side of the femoral neck, the femoral neck osteotomy was made thruthe medial calcar with the sagital saw, and the neck cut complete using a1? osteotome in line with the greater trochanter. The remainingpiriformis fossa soft tissue contents were then cleaned away.?The proximal femur was now appropriately exposed. A ronjour was used toremove any excess bone at the medial side of the greater trochanter. Thiswas followed by the ?loyd cutter? to remove any remaining lateralfemoral neck, and then the canal finder. A sequential broach system wasutilized, being careful to lateralize the broach in order to prevent varuspositioning of the component. Once a tight fit was identified, both inrotational and axial stability planes, the appropriate broach size wasretained in the femur for future trialing. The leg was then allowed tolay back down on the table.?Attention was now diverted to the acetabulum. A large bone hook wasutilized on the inside of the greater trochanter in order to allowvisualization of the anterior acetabulum. The Diann #1 blue-handleretractor was then placed over the anterior wall, interpositioned betweenthe capsule and the labrum. The bone hook was then remove and the femurheld out of the way with the #1 retractor. The inferior capsule was splitin a vertical fashion to complete the ?H? capsular incision, and aposterior ?finger? retractor was positioned under the transverseacetabular ligament, holding the posterior capsule and external rotatorsout of the surgical field. The labrum was circumferentially removed , andthe pulvinar from the cotyloid fossa. Any medial osteophytes were alsoremoved utilizing a ?? osteotome in order to visualize the true medialwall. Once appropriate acetabular exposure was achieved, acetabularreaming commenced until an appropriate rim fit and medial wall fit wasattained. A trial acetabulum was inserted that was equivalent to thereamer size, and noted to have excellent fit. The trial component versionand abduction was noted in relation to multiple landmarks, including theischium, the superior dome, and the pubis bone. The real acetabularcomponent was then opened, and placed in a mirror position that that wherethe trial component had been placed, checking version and abduction,again, against multiple landmarks. The goal was to attain 20-25 degreesof anteversion, and 40-45 degrees of abduction. A Tonsil hemostat wasused in the medial hole of the component to verify the cup was seated onthe medial wall. An ?Au Franc? alignment guide was then used once the cupto verify alignment one last time. We opted not to place any screws inthe acetabulum, given the excellent press-fit. All peripherally rimmingosteophytes were removed, as needed, utilizing a ?? curved osteotome. Thewound was then irrigated with 1L of irrigation, and the appropriate highlycross-linked polyethylene shell was impacted into place, being careful toverify that the locking mechanism was appropriately satisfied. Finally,20cc of local injection cocktail was placed into the anterior and inferiorcapsular locations, to aid with post-operative pain control.?A trial trunion and head, (a standard offset stem was pre-operativelytemplated) utilizing various angles and lengths as needed, was trialeduntil a combination was noted to give the most stable ROM with no sign ofimpingement or dislocation. Abductor tension and quadriceps tension wasalso taken into account, to best reproduce soft tissue tension that hadbeen present prior to surgery. Leg lengths were verified using both theEKG lead on the contralateral leg, as well as the heels.?Once final components were selected, they were opened on the back table inthe usual sterile fashion. The wound was again irrigated with 500cc ofirrigation, and the final and remaining components were now placed, beingcareful to seat the femoral component to the level that the trial hadachieved. The head was impacted into place after cleaning and drying thetrunion of all debris and moisture. The femoral head was re-located intothe acetabulum under the guidance of the surgeon, with no debris noted canelo incarcerated in the articulating junction. Once the final componentswere in place, the final hip construct was once again checked for ROM,stability, and leg length ? all of which were noted to match as closely aspossible the patient?s normal anatomy. The wound was then irrigated withan additional 1L of normal saline irrigation.?The remaining local injection cocktail was utilized in the posteriorrotators/capsule, the abductors, the gluteus yaneth, and subcutaneoustissue. The skin was separately injected using a second needle. Closurethen commenced with repair of the inferior vertical capsular split using abaseball stitch #1 Vicryl. The two tagged capsule ends, as well as thepiriformis tendon, were then re-attached at the intersection of theposterior abductor (gluteus medius) tendon to the greater trochanter,utilizing a soft tissue repair technique (#2 Tycron in a lijbfe-jl-dacqgkdviruwjs). The external rotators were re-approximated using #1 Vicryl,and the IT band + gluteus yaneth fascia was closed with six interrupted#2 Tycrons in Figure-8 fashion, followed by a running #1 Vicryl over theentirety of the split. The deep fat was closed with interrupted #1 Vicryl(to minimize any ? space?), and the subcutaneous layer closed withinterrupted, buried 2-0 Vicryl. Finally, the skin was closed with arunning 3-0 subcuticular monocryl, steristrips at the tails, skin glue,and a silver dressing.?The operative leg was wrapped from toes to groin with a sterilecompression dressing, and a pillow placed between the legs. The patientwas then awoken from their anesthesia and transferred back to the hospitalbed from the operating room table gurney. [facility].?1g of transexemic acid was given 30min prior to incision, and then asecond gram was given during closure of the wound.?All counts, verified in 2 separate count episodes, were correct at the endof the case.??Post-Operative Plan:- AP PACU Pelvis- Toradol OK for pain control- WBAT on the operative leg, pillow between the legs until day #1- Strict posterior dislocation precautions (no flexion past 90 degrees,?goal post? maneuvers, no cross midline adduction of operative leg)- Antibiotics x24hrs as a prophylactic- Medicine consult post-op --> will need CIWA protocol given whiskeydrinking history (see my office note)- Home with Mobic 15mg QDay + Prilosec (to protect stomach lining)- DVT ppx: SCD pumps while in the hospital, ASA EC 81mg PO BID x4 weeks- Dispo: Plan for discharge once pain controlled and all PT/OT goals met.POD#1. Plan for discharge to Home with HPT.??ESTIMATED BLOOD LOSS: 150 mls?SPECIMENS:1) Left Femoral Head (permanent)?IMPLANTABLE DEVICES: See above?DRAINS: None?COMPLICATIONS: None?PARTICIPATION IN SURGERY/PROCEDURE: ATTESTATION STATEMENT: I was presentfor all of the critical portions of the operation and performed orassisted in all critical portions. Fellow / Residents / PA-Cs / CNPs (MD Remy; Aubrey Trent CNP, Ivy Sanchez PA-C ) performed part of theclosure under supervision, and assisted during the operation. I wasimmediately available for the duration of the entire case.?SIGNATURE: Jaylen Casiano MD PATIENT NAME: Ranjana McdonoughDATE: October 03, 2018 : 9:08 AM PAGER/CONTACT #: [phone] [facility] PT EDon 10-03-2018 PT ED HNO ID: [id number] thor: Deirdre (Rn) CHAPINCITO Chavezervice: (none)Author Type: Registered NurseType: Patient EducationFiled: 10/03/2018 6:02 AMNote Text:PATIENT EDUCATION TOPIC: PROCEDURE / SURGERY: Procedure/Surgery:PATIENT NAME: Ranjana McdonoughMRN: [id number] LOCATION: [place]-OPERATING ROOM POOL/*READINESS TO LEARNCOGNITIVE ABILITY: Alert and orientedMOTIVATION TO LEARN: EagerFAMILY SUPPORT: None - Unavailable/disinterestedINSTRUCTI ON PROVIDED TO: PatientPATIENT LEARNS BEST BY: Multiple MethodsFACTORS AFFECTING LEARNING: NonePHYSICAL LIMITATIONS AFFECTING LEARNING: NoneLEARNING RESPONSEDIAGNOSIS: ADULT:PATIENT/FAMILY RESPONSE: Verbalizes understanding of: LHT-DAXDEBXGZBOZPIZNNNTWP-Frivjxo action to take to follow pre-operative instructionsMETHOD OF INSTRUCTION: Verbal instructionFOLLOW-UP PLAN: Patient instructed to call with any further issuesINSTRUCTIONAL AIDS USED: NASUPPLEMENTAL MATERIAL PROVIDED TO PATIENT: NoneREFERRAL (RECOMMENDATION): NoneElectronically Signed By: Deirdre Chavez RN [facility] SURGICAL PATHOLOGYon 018 SURGICAL PATHOLOGY Specimen [facility] from [facility]: [id number] Physician: JAYLEN CASIANO MD FINAL DIAGNOSISLeft femoral head and acetabular bone, arthroplasty - Avascular necrosis.JDR/db 10/08/2018 Davie Hodges M.D.(Electronic Signature) SPECIMEN SUBMITTEDA: LEFT FEMORAL HEAD, ACETABULAR REAMINGS CLINICAL DATAAVASCULAR NECROSIS OF BONE OF LEFT HIP;LEFT THR;GROSS DESCRIPTIONA. Received in formalin labeled left femoral head and reamings is afemoral head measuring 6.5 x 5 x 4.8 cm. The articular surface demonstratesan area of roughening. No eburnation or osteophyte formation is present.The femoral head is sectioned to reveal an area of pale yellow soft boneconsistent with a zone of necrosis. The cartilage overlying this areagrossly appears to be lifting away. No areas of eburnation are grosslyappreciated. Attached to the bone are multiple irregular pink-beach rubberytissue fragments. Rcis sections are submitted as follows: A1 softtissue; A2 bone after decalcification.PASCUAL/bradley/10/03/18Gr oss examination performed at [facility], [address] [place], [place] [address]hor[place] [address] of Report: 10/09/2018Date of Procedure: 10/03/2018Date of Receipt: 10/03/2018Submitted by: JAYLEN CASIANO MDLocation: [id number] interpretation performed at [facility], [address] [place], [place] [address]. [facility] THERAPY NTon 10-03-2018 THERAPY NT HNO ID: [id number] thor: Mariela (Pt) GuddyService: Physical TherapyAuthor Type: Physical TherapistType: Therapy (PT/OT/Speech/Resp)Filed: 10/03/2018 4:22 PMNote Text:Physical Therapy EvaluationSERVICE DATE: 10/03/2018SERVICE TIME: 1515 to 1545ROOM: [id number] Discharge Disposition: Home PTRecommended Discharge Equipment: No equipment needs anticipatedPT Recommendations to Nursing: Ambulate with device;To bathroom;Inhalls;OOB for Meals;With assist of 1 personDevice: Wheeled WalkerPT 6 Clicks Score: 23Precautions/Activity Restrictions: Total Hip Replacement;Weight BearingRestrictionsExtremity With Weight Bearing Restricted: Left Lower ExtremityLeft Lower Extremity Weight Bearing Status: WBATTotal Hip Replacement Precautions: PosteriorASSESSMENT :Pt presents with impaired tolerance to activity, functionalmobility and L hip strength/ROM following L THR. Pt requires skilled PTfor post op THR education, exercises and progression of mobility. Ptmobilizing well on evaluation. S/p R THR 08/19/18. Anticipate D/C hometomorrow after PT session and stair training.Patient Disposition at Start of Session: Supine in Bed;Call Briggs in ReachPatient Disposition at End of Session: OOB in Chair;Call Briggs in ReachTolerated Full SessionPhysical Therapy Problem List: Pain;Impaired Self Care;Decreased ActivityTolerance;Decreased Range Of Motion;Decreased Strength;Functional MobilityImpairment;Balance ImpairedPatient /Caregiver Goals: Walk;Go HomeGoals for Plan of Care:Able to perform HEP with: IndependentRolling with: Modified IndependentTransfer supine to/from sit with: Modified IndependentTransfer sit to/from stand with: Modified IndependentAmbulate with: Modified IndependentDistance: 200 feetDevice: Crutch(es)Ambulate up and down steps with: SupervisionNumber of steps: 6Device: Crutch(es);RailRehab Potential: GoodPLAN:Treatment Frequency (times per week): 7 Current admissionTreatment Interventions: Education;Self Care / Home Management;EnergyConservation Training;Strengthening;Functional Mobility Training;BalanceTrainingPlan of Care developed with: PatientTREATMENT INTERVENTIONS:Therapy Diagnosis: Reduced mobility-otherInterventions Provided: Evaluation;Gait Training (82340)$ Evaluation-Low (35890) Billed Units: 1 unitGait Training (24146) Treatment Minutes: 151 unitSkilled Intervention(s): Instruction in sit to stand technique with properhand placement and body positioning at edge of bed/chair, Instruction instand to sit technique with LE's touching chair/bed and reaching back forsurface, Instruction in sequencing, gait pattern, Instruction incorrection of gait deviations, Instruction in WB precautions, Instructionin use of equipment, cues for sequence and pattern and posture, balance,safety, equipment, THR booklet, antiembolicsTotal Timed Code Treatment Minutes: 15Total Treatment Time (minutes): 30FUNCTIONAL G CODE:PT 6 Clicks Score: 23 (10/03/18 1515)Mobility: Walking and Moving Around Current Status (G8978): CI ()Mobility: Walking and Moving Around Goal Status (G8979): CI ()Based on clinical assessment and the score on the 6 Clicks FunctionalAssessment Tool, the G code and corresponding severity modifiers aredocumented above.SUBJECTIVE:Current Hospital Course: Chart reviewed; 48 y.o male admitted 10/03/18 s/pL THRReason for Physical Therapy Consult : s/p L THRRelevant Past Medical History: AVN, HTN, R THR 08/19/18Patient Report: The last time I used crutches Home EnvironmentPatient Lives With: FamilyAssistance Available: 24 HourEntry To Home: Stairs;Without RailNumber Of Stairs Into Home: 3Number Of Stairs To Bed/Bath: 1 flightStairs to Bed/Bath with: Unilateral RailEquipment Owned: Cane;Crutch(es);ADL Kit;Commode-Raised;Wheeled WalkerPrior Functional Level: Within Functional LimitsOBJECTIVE:CURRENT FUNCTIONAL STATUS:Current Functional Mobility Assist Level Additional InformationRollingSupine to Sit SupervisionSit to SupineScooting SupervisionSit to Stand SupervisionStand to Sit SupervisionBed to Chair Supervision Bed To Chair Transfer Type: Stand PivotBed To Chair Transfer Equipment: Wheeled WalkerToilet/CommodeGait Supervision Gait Device: Wheeled Walker Gait Distance (feet): 200 feet x 1StairsCurb StepCar TransferGait Deviations Left Lower Extremity: Weight bearing decreased;Stance timedecreasedGeneral Gait Deviations: (step thru)JH-HLM: 7: Walk 25 feet or morePlease see discipline specific clinical documentation flowsheet forcomplete details for this therapy evaluation/treatment.SIGNATURE: Mariela Krueger PT PATIENT NAME: Ranjana McdonoughDATE: October 03, 2018 : 4:19 PM [facility] XR PELVIS 1V APon 10-03-2018 Protein mass conc * * *Final Report* * *DATE OF EXAM: Oct 03 2018 1:20PM LUX 5239 - XR PELVIS 1V AP / REASON: Hip DJD, replacement planning * * * * Physician Interpretation * * * * EXAM: XR PELVIS 1V APHISTORY: Hip DJD, replacement planning. Left hip replacement.VIEWS: Portable AP at 1414 hrs.FINDINGS: Completed left total hip arthroplasty with anatomic alignment of noncemented components. Neutral femoral stem position. Postsurgical soft tissue emphysema. Pre-existing right total hip arthroplasty.IMPRESSION: Postoperative left total hip arthroplasty.Plate And Weld Inspector: RAFAEL Transcribe Date/Time: Oct 03 2018 2:10PDictated by : Mable VILLALOBOS MDThis examination was interpreted and the report reviewed and electronically signed by: Mable VILLALOBOS MD on Oct 03 2018 2:20PM [id number] [facility] NURSING PROGon 09-29-2018 Protein mass conc HNO ID: [id number]: Renetta (Rn) Darius, CHAPINCITOervice: General SurgeryAuthor Type: Registered NurseType: Nursing Progress NoteFiled: 09/29/2018 2:07 PMNote Text:PACC Nurse Progress NoteHistory AND Physical:PACC Visit Date: 80-9-76Opyudtnm HANDP Date: N/AED visit Date: N/AOutside HANDP Scanned Date: N/ALabs Within Last 6 Months:CBC: Date 09-16-18BMP/CMP: Date 09-16-18UA: Date 67-6-37Ypkzw C+S: Date 70-6-26DUNKZD: Date 09-16-18TYPE AND SCREEN: Date 46-7-18BFVGH TEST: Ferritin, Iron, Date 74-4-81Rlpavx acceptable limits, results in EPIC.Imaging Within Last 12 Months:X-ray Hip 66-3-36Hwihsex in EPICCardiac Testing:EKG in last 12 Months: Yes: Date: 08-08-18, Comment: Confirmed in EPICLast Menstrual Period:LMP Date: N/APostmenopausal >1yr: N/A,S/P Hysterectomy: N/ABMI Percentile (PEDS):N/ARisk Assessment:N/AAnesthesia Review:N/ANarrative:N/APre-op Considerations:Per HANDP:HTN81 mg asa dailyGERD ETOH > 2 a day- 3 bourbons at night , no hx of DTs or rehabChart Check:Barby Hsieh 2017 2:05 PM [facility] Type and SCR (30D)on 018 ABO/RH(D) Positive [facility] Comment on above: Performed By: #### [id number] ####Confucianism [id number] [address] [phone] HOSPon 08-21-2018 HOSP Patient:VincenzorakanGeorge RN: Height:6' 0 (1.829 m)Weight:222 lb (100.699 kg)Outpatient Medications as of 10/03/18:amLODIPine (NORVASC) 5 mg tabletaspirin, enteric coated (ECOTRIN LOW STRENGTH) 81 mg EC tabletcitalopram (CELEXA) 20 mg tabletdocusate sodium (COLACE) 100 mg capsulemeloxicam (MOBIC) 15 mg tabletoxyCODONE IR (ROXICODONE) 5 mg immediate release tabletpantoprazole DR (PROTONIX) 20 mg tabletAdmission/Clinic Administered Medications as of 10/03/18:ceFAZolin iv piggyback 2 g in D5W (iso-osmotic) 100 mL (ANCEF)fentaNYL 50 mcg/mL 50 mcg injection (SUBLIMAZE)lactated ringers infusionlactated ringers infusionlidocaine 10 mg/mL (1 %) 1-2 mg injection (XYLOCAINE)meperidine (PF) 12.5 mg injection (DEMEROL)ondansetron (PF) 4 mg injection (ZOFRAN)ondansetron 4 mg tab(s) (ZOFRAN)oxyCODONE IR 5 mg tab(s) (ROXICODONE)tranexamic acid 1,000 mg in NaCl 0.9% 100 mL (CYKLOKAPRON)tranexamic acid 1,000 mg in NaCl 0.9% 100 mL (CYKLOKAPRON)Problem List:Osteonecrosis of right hip (HCC) [M87.9]AVN (avascular necrosis of bone) (HCC) [M87.00]Avascular necrosis of bone of left hip (HCC) [M87.052]Allergies:No Known AllergiesDate Verified:10/03/18Lab ValuesLab Value Units Date High LowPOTA* 4.4 mmol/L 09/16/2018 5.1 3.7HEMA* 45.1 % 09/16/2018 51.0 39.0Progress Notes (ORTH MAIN):Swetha Box RN, RN 09/24/2018 2:27 PM SignedShort term disability claim form completed [facility]. Paperworkemailed to patient, HR rep, and insurance claim adjuster per his request.Request paperwork be scanned into STARFACE.Progress Notes (RADIO GENERAL MAIN A21):RT Claire 09/16/2018 10:56 AM Signed Radiology Service Progress NotePATIENT NAME: Ranjana McdonoughMRN: [id number] OF SERVICE: September 16, 2018TIME: 10:55 AMPATIENT IDENTITY VERIFICATION COMPLETED USING TWO (2) METHODS: Patientconfirmed name verbally and Date of .PATIENT GENDER DATA: MalePATIENT RELEVANT IMPLANT DATA REVIEWED: Not ApplicableRADIOLOGY DEPARTMENT: General X-ray: Exam(s) Completed: Pelvis X-Ray: Pelviswith Hip RightPERIPHERAL IV DATA: Not applicableSIGNED BY: Theron Rangeljose eduardo 2017 10:55 AM [facility] Basic Metabolic Panlon 08-20 Anion gap 3 molar conc 13 mmol/L Normal 9-18 [facility] Comment on above: Performed By: #### CBC, BMP ####[place] [id number] Calcium mass conc 9.1 mg/dL Normal 8.5-10.2 [facility] Comment on above: Performed By: #### CBC, BMP ####[place] [id number] Chloride molar conc 100 mmol/L Normal 97-105 [facility] Comment on above: Performed By: #### CBC, BMP ####[place] [id number] CO2 molar conc 26 mmol/L Normal 22-30 [facility] Comment on above: Performed By: #### CBC, BMP ####[place] [id number] Creatinine mass conc 0.91 mg/dL Normal 0.73-1.22 [facility] Comment on above: Performed By: #### CBC, BMP ####[place] [id number] eGFR- Amer. >60 Normal >60 [facility] Comment on above: Performed By: #### CBC, BMP ####[place] [id number] GFR/1.73 sq M predicted among non-blacks MDRD vol rate/area (S/P/Bld) mL/min/{1.73_m2} Normal >60 [facility] Comment on above: Result Comment: eGFR (Estimated GFR) Uni ts of measure: mL/min/1.73 meters squaredeGFR is derived from the reexpressed MDRD Study equation using the following parameters: serum creatinine, age, gender and race. The creatinine assay has been calibrated to be traceable to IDMS.An eGFR <60 mL/min/1.73m2 for >3 months is consistent with chronic kidney disease. Refer to KDOQI guidelines for clinical interpretation.In patients with unstable renal function, e.g. those with acute kidney injury, the eGFR may not accurately reflect actual GFR. Performed By: #### C BC, BMP ####[place] [id number] Glucose mass conc 109 mg/dL High 74-99 [facility] Comment on above: Performed By: #### CBC, BMP ####[place] [id number] [place] [id number] Potassium molar conc 4.0 mmol/L Normal 3.7-5.1 [facility] Comment on above: Performed By: #### CBC, BMP ####[place] [id number] Sodium molar conc 139 mmol/L Normal 136-144 [facility] Comment on above: Performed By: #### CBC, BMP ####[place] [id number] Urea nitrogen mass conc 15 mg/dL Normal 9-24 [facility] Comment on above: Performed By: #### CBC, BMP ####[place] [id number] CASE MANAGEMon 08-20-2018 CASE MANAGEM HNO ID: [id number] thor: Nicole (Rn) CHAPINCITO Gilervice: Care ManagementAuthor Type: Registered NurseType: Care Mgt Progress NoteFiled: 08/20/2018 11:44 AMNote Text:CARE MANAGEMENT DISCHARGE NOTESERVICE DATE: 08/20/2018SERVICE TIME: 11:41 am LOS: 1 dayAdmission Date: 08/19/2018DISCHARGE ARRANGEMENT (list agency and phone number)Home Care - PT and OTProvider: Hayley WJADPNKBY ASSESSMENT:Caregiver is ready, willing and able to meet the patient's needs asrecommended by the inter-professional team? YesPatient's transition needs and plan for meeting these needs: home careDoes the patient have an acute stroke diagnosis, or has the patient had astroke during this admission? NoHANDOFF COMMUNICATION:Dr. Cas[facility] and [facility] via EPICTRANSPORTATION ARRANGEMENTS:Car with familyADDITIONAL CONTACT RESOURCES:Discharge Information Row Name Patient Update from 07/10/2018 in Orthopaedics Admission(Current) from 08/19/2018 in [facility] 5D Medical Follow-Up Appointment Specialty ? [facility] Provider Name ? Estella Box RN Address ? [address], [address], [facility], Zip ? [place] [address] Phone Number ? [phone] Appointment Date ? 09/16/18 Appointment Time ? 11:30AM Additonal Instructions ? Patient should bring the following toappointment: Picture ID, Insurance Card, Copay (if applicable),Medications/Medication List. Please provide a minimum of 24 hours' noticefor cancelations/rescheduling.Needs Prior to Discharge: Ready for DischargeSIGNATURE: Nicole Gil RN PATIENT NAME: Ranjana MannTE: August 20, 2018 : 11:41 AM PAGER/CONTACT #: [phone] Normal [facility] CBCon 08-20-2018 Erythrocyte distribution width Auto Ratio (RBC) 13.1 % Normal 11.5-15.0 [facility] Comment on above: Performed By: #### CBC, BMP ####[place] [id number] Hematocrit Auto Volume Fraction (Bld) 38.4 % Low 39.0-51.0 [facility] Comment on above: Performed By: #### CBC, BMP ####[address] Hemoglobin mass conc (Bld) 12.9 g/dL Low 13.0-17.0 [facility] Comment on above: Performed By: #### CBC, BMP ####[address] MCH Auto Entitic mass (RBC) 31.1 pG Normal 26.0-34.0 [facility] Comment on above: Performed By: #### CBC, BMP ####[address] MCHC Auto mass conc (RBC) 33.6 g/dL Normal 30.5-36.0 [facility] Comment on above: Performed By: #### CBC, BMP ####[address] MCV Auto Entitic volume (RBC) 92.5 fL Normal 80.0-100.0 [facility] Comment on above: Performed By: #### CBC, BMP ####[address] Platelet mean volume Auto Entitic volume (Bld) 11.0 fL Normal 9.0-12.7 [facility] Comment on above: Performed By: #### CBC, BMP ####[address] Platelets Auto #/vol (Bld) 275 10*3/uL Normal 150-400 [facility] Comment on above: Performed By: #### CBC, BMP ####[address] RBC Auto #/vol (Bld) 4.15 10*6/uL Low 4.20-6.00 [facility] Comment on above: Performed By: #### CBC, BMP ####[address] WBC Auto #/vol (Bld) 10.27 10*3/uL Normal 3.70-11.00 [facility] Comment on above: Performed By: #### CBC, BMP ####[place] [id number] CNDSon 08-20-2018 CNDS HNO ID: [id number] thor: Indra (Hollis) ThomasiraService: Orthopaedic SurgeryAuthor Type: ResidentType: Discharge SummariesFiled: 08/20/2018 4:33 PMNote Text: Attestation signed by Jaylen Casiano MD at 08/21/2018 6:59 AMAgree with above. Patient underwent an unremarkable right FARA forEtOH-associated AVN of the femoral head. Routine posterior hip precautions,WBAT. ASA for DVT ppx. Was on CIWA protocol while admitted. Planning for f/uin ~4wks for wound check, XRays, progress check.Jaylen Casiano MDAssander chemical laboratory technician, [facility] at [facility] Director, Division of Musculoskeletal OncologyCo-Director of [facility], [facility] Medical CenterPager: [phone] 20176:[phone] AM ORTHOPEDIC SURGERYDISCHARGE SUMMARYADMISSION DATE: 08/19/2018DISCHARGE DATE: 08/20/2018Attending Physician: GISELLE Duganeason for Hospitalization: For surgical procedure, postoperative IVantibiotics, Physical therapy/Occupational therapy, and pain controlAdmitting Diagnosis: Hip Advanced Degenerative Joint DiseaseDischarge Diagnosis: Hip Advanced Degenerative Joint DiseaseAdditional Diagnoses:ACTIVE PROBLEM LISTOsteonecrosis of Right Hip (Hcc)Avn (Avascular Necrosis of Bone) (Hcc)Surgeries During Hospitalization: Procedure(s) (LRB):ARTHROPLASTY REPLACE JOINT TOTAL HIP (Right)Consultations:Physical TherapyCase ManagementInternal MedicineHospital Course:The patient is a 48 year old male who has been followed by Dr. Jaylen Mcguire MD, MD in clinic for right hip osteoarthritis. It was determinedhe would benefit from surgery. The procedure, its risks, benefits, andpotential complications were discussed in detail with the patient prior tosurgery. Understanding of all topics was conveyed by the patient, andconsent was given for surgery. [facility] Surgery was scheduledand on 08/19/2018 he underwent a Procedure(s) (LRB):ARTHROPLASTY REPLACE JOINT TOTAL HIP (Right) with Spinal Anesthesia. Theprocedure was tolerated well and he was sent to the post operativerecovery room in stable condition, where he also did well. Post operativex-rays in the recovery room showed well positioned implants. He wassubsequently sent to his hospital room for postoperative management.Once on the floor his postoperative course was unremarkable and he didwell. His diet was advanced which he tolerated. His pain was wellcontrolled on PO and IV; this was eventually transitioned to oralmedication alone prior to discharge. He worked with Physical andOccupational Therapy who recommended he be discharged home. Hisdressing remained clean dry and intact throughout his stay. He remainedafebrile with stable vital signs throughout his stay. He was stable fordischarge to home on POD#1.Complete and comprehensive discharge instructions were provided to thepatient as well as necessary prescriptions. The patient had no furtherquestions and was advised to call with any questions, concerns, orproblems.Patient was hemodynamically stable postoperatively.Relevant labs included:Hemoglobin (g/dL)Date Value08/20/2018 12.9 (L)07/04/2018 15.1Hematocrit (%)Date Value08/20/2018 38.4 (L)07/04/2018 47.3Discharge Antibiotics: NoneTransfers: PACU and then to the hospital surgical floor when PACU criteriawas met.DVT Prophylaxis: Sequential Compression Devices and Aspirin to reduce riskof bleedingPain Control: Oral narcoticsComplications: Continued throughout the hospital course withoutcomplications.Patient Condition @ Discharge: StableDischarge Disposition: Home with Home Health CareDischarge Activity/Weight Bearing Status: Weight bearing as toleratedThe patient was instructed to follow-up:Future AppointmentsDate Time Provider Department Dedtfl0309/16/2018 11:00 AM ORTH GENERAL XRAY A21 RADMN RADIO A BLDG09/16/2018 11:30 AM Estella (Rn) JOSE FRANCISCO Box ORTHMN ORTH A AND NADischarge Medications: Discharge Medication List as of 08/20/2018 12:00 PMSTART taking these medicationsaspirin, enteric coated (ECOTRIN LOW STRENGTH) 81 mg EC tabletTake 1 tablet by mouth twice daily for 28 days.Print RX, Disp-56 tablet, R-0, Long-termdocusate sodium (COLACE) 100 mg capsuleTake 1 capsule by mouth twice daily.Print RX, Disp-60 capsule, R-2meloxicam (MOBIC) 15 mg tabletTake 1 tablet by mouth once daily for 14 days.Print RX, Disp-14 tablet, R-0oxyCODONE IR (ROXICODONE) 5 mg immediate release tabletTake 1-2 tablets by mouth every 4 hours as needed for Pain for up to 10days.Print RX, Disp-60 tablet, R-0Dx: 1. Osteonecrosis of right hip (HCC)pantoprazole DR (PROTONIX) 20 mg tabletTake 1 tablet by mouth once daily for 14 days.Print RX, Disp-14 tablet, R-0, Long-termCONTINUE these medications which have NOT CHANGEDcitalopram (CELEXA) 20 mg tabletTake 20 mg by mouth once daily.Historical Med, Long-termamLODIPine (NORVASC) 5 mg tabletTake 5 mg by mouth once daily.Historical Med, Long-termSTOP taking these medicationsibuprofen (MOTRIN) 800 mg tabletComments:Reason for Stopping:Castillo Arboleda MDOrthopaedic Surgery - [id number] 7, 2018 8:00 AM [facility] NURSING PROGon 08-20-2018 Protein mass conc HNO ID: [id number]: Gurvinder (RnCHAPINCITO Shultzervice: (none)Author Type: Registered NurseType: Nursing Progress NoteFiled: 08/20/2018 5:46 PMNote Text:REVIEWED DISCHARGE WITH PT AND FAMILYSCRIPTS FILLED YESTERDAYPT AND FAMILY STATES GOOD UNDERSTANDING OF DISCHARGEATTENDED DISCHARGE CLASS TODAYDC HOME [facility] Protein mass conc HNO ID: [id number]: Maura Mckinney (Acn) RNService: (none)Author Type: Advance Clinical NurseType: Nursing Progress NoteFiled: 08/22/2018 8:04 PMNote Text: Nursing Progress NotePatient Name: Ranjana McdonoughMRN: [id number] Location: [address]/[id number] Daily Note:Patient attended discharge instruction class for total joints, wheredischarge instructions were reviewed.Education/Teaching points reviewed:Wound care for Silverlon/Mepilex AG - any drainage upon removal notifysurgeonShoweringNutritionUse of ice, no heatNo pillow under the kneeWearing protocol for bola hose/jeromy wrapsSwelling (abnormal vs. Normal)Exercises , positioning restrictions for total hipsLevel of activity patient should have daily to decrease post opcomplicationsIncentive spirometer use for home q1-2hrs while awake x1 weekS/S of wound infectionFever greater than 101 and interventionsS/S of DVT/PE and interventionsHome physical therapyF/U careNo submersion of knee or hip in tub or pool for 8-12 weeksMade aware they can activate metal detectorsNo driving while on narcotics and not until cleared by surgeonAny questions or concerns after D/C told to call surgeon's officeIf after hours, told to contact orthopedic resident on callIf any SOB/chest pain call 911Antibiotic and DVT prophylaxisMedication handouts outlining the most common side effects for thefollowing classifications of drugs were reviewed by the pharmacist:Bowel management/constipationOpiod therapy/pain managementAnti inflammatory/pain and swellingTylenol/analgesicAnticoagu lants/DVT prophylaxisPatient validated understanding of the above instructions.This note was completed by: Maura Mckinney RN [facility] PROGRESSon 08-20-2018 Protein mass conc HNO ID: [id number]: Castillo (Res) SalehService: Orthopaedic SurgeryAuthor Type: ResidentType: Progress NotesFiled: 08/20/2018 7:58 AMNote Text:ORTHOPAEDIC POSTOP PROGRESS NOTESubjectivePatient states that they are comfortableWell Controlled painTolerated diet.ObjectiveVITAL SIGNS: BP 129/75 Pulse 67 Temp 37.2 ?C (99 ?F) (Oral) Resp16 SpO2 98%INTAKE AND OUTPUT:Intake/Output Summary (Last 24 hours) at 08/20/18 0758Last data filed at 08/20/18 0000 Gross per 24 hourIntake 4600 mlOutput 2200 mlNet 2400 mlPHYSICAL EXAMINATION:Right Lower Extremity: Dorsalis pedis pulses palpable. Dorsi flexion 5/5. Plantar flexion 5/5. Extensor hallucis extension: 5/5. Sensory intact to light touch L1-S1. Dressing clean, dry and intact. Surgical site no drainage and skin edges well approximated.Problem Review and Assessment: Patient monitored, no new events overnight.LABS:Recent Labs 400HB 12.9*HCT 38.4*DATA:Diagnostic tests reviewed for today's visit:Most recent labsAssessment/PlanS/P Procedure(s) (LRB):ARTHROPLASTY REPLACE JOINT TOTAL HIP (Right) on 08/19/2018POSTOP PLAN: Physical Therapy evaluationDVT prophylaxis: with aspirin, additional anticoagulant is contraindicateddue to bleeding risk and Intermittent pneumatic compression device (IPCD)Pain controlAntibiotics: Discontinuing Antibiotics after 24 hoursCase Management for discharge planning - home todayACTIVE PROBLEM LISTOsteonecrosis of Right Hip (Hcc)Avn (Avascular Necrosis of Bone) (Hcc)Medication and Non-Pharmacologic VTE Prophylaxis/AnticoagulantsAnticoag ulant AND Antiplatelet Medications Start Dose Route Frequency Ordered Stop 08/20/18 0900 aspirin, enteric coated 81 mg tab(s) (Orthopedic HighRisk ) 81 mg ORAL 2 TIMES DAILY 08/19/18 1057 -- 08/18/18 0000 aspirin, enteric coated (ECOTRIN LOW STRENGTH) 81 mg ECtablet 81 mg ORAL 2 TIMES DAILY 08/18/18 0902 09/15/18 [id number]/19/17 1045 activity - mobilize patient (ms,nd)08/19/18 1015 pneumatic compression stockings ([place])08/19/18 0615 graduated compression stockings ([place])VTE Prophylaxis: VTE prophylaxis appropriatePOST OPERATIVE COMPLICATIONS:Complicated by: uneventful/noneSIGNATURE: Castillo Arboleda MD PATIENT NAME: Ranjana McdonoughDATE: August 20, 2018 : 7:58 AM PAGER/CONTACT #: [phone]#[id number] [facility] THERAPY NTon 08-20-2018 THERAPY NT HNO ID: [id number] thor: Leonela (Ot) Tess OTService: Occupational TherapyAuthor Type: Occupational TherapistType: Therapy (PT/OT/Speech/Resp)Filed: 08/20/2018 10:39 AMNote Text:Occupational Therapy EvaluationSERVICE DATE: 11/7/2018SERVICE TIME: 1001 to 1024ROOM: [id number] Discharge Disposition: HomeAnticipated Discharge Needs: Physical Assist at HomePhysical Assist at Home for: Cleaning;Laundry;Shopping;Transpor tationOT Recommendations to Nursing: To Bathroom for ADL?s /and or Toileting;OOBfor meals;Transfer to Chair;With assist of 1 personEquipment: Wheeled Walker (or crutches)OT 6 Clicks Score: 23Precautions/Activity Restrictions: Total Hip Replacement;Weight BearingRestrictionsExtremity With Weight Bearing Restricted: Right Lower ExtremityRight Lower Extremity Weight Bearing Status: WBATTotal Hip Replacement Precautions: PosteriorASSESSMENT:Patient is safe to discharge from acute care setting to home and care offamily supports via car from OT perspective.Patient is s/p RTHR and demonstrates understanding of THR precautionswith ADLs, modified techniques and use of adaptive equipment and cartransfer technique . Pt has met OT goals, No further OT services required.Patient Disposition at Start of Session: Supine in Bed;SCDs;Call Briggs inReachPatient Disposition at End of Session: Supine in Bed;SCDs;Call Briggs inReachTolerated Full SessionOccupational Therapy Problem List: Impaired Self Care;Functional MobilityImpairmentPatient /Caregiver Goals: Go HomeGoals for Plan of Care:Lower Body Bathing with: Minimal AssistanceLower Body Dressing with: Modified IndependentToilet Transfer with: Modified IndependentDemonstrate Competence With Education with: IndependentTransfer: car with supervisionPLAN:Treatment Frequency (times per week): Discontinue Therapy ServicesReasons Therapy Services Discontinued: Goals metPlan of Care developed with: PatientTREATMENT INTERVENTIONS:Therapy Diagnosis: Reduced mobility-other;Decreased activities of dailyliving (ADL)Interventions Provided: Evaluation;Self Snf Management (88945)$ Evaluation-Low (69700) Billed Units: 1 unitSelf Snf Management (93787) Treatment Minutes: 81 unitSkilled Intervention(s):Educated on role of OT, POC, and discharge recommendations.Reviewed post-operative THR precautions and guidelines with ADLs andfunctional mobility/ transfer techniques.Instructed pt through demonstration and verbal cues, on use of adaptivetechniques/equipment with lower body dressing and bathing.Recommended use of long handled sponge for bathing, and career services director, longhandled shoe horn, and sock aid for lower body dressing.Recommended home modifications for safety, including removal of throwrugs, clear pathways, and pre-positioning items for easy access.Patient instructed to not carry items in hands while using walker (usewalker bag or basket).Instructed pt in functional transfers while maintaining post-operativeprecautions including: sit to stand, stand to sit, chair,and cartransfers.Total Timed Code Treatment Minutes: 8Total Treatment Time (minutes): 23FUNCTIONAL G CODE:OT 6 Clicks Score: 23 (08/20/18 100)Self Care Current Status (G8987): CI (08/20/18 100)Self Care Goal Status (G8988): CI (08/20/181000)Self Care Discharge Status (G8989): CI (08/20/181000)Based on clinical assessment and the score on the 6 Clicks FunctionalAssessment Tool, the G code and corresponding severity modifiers aredocumented above.SUBJECTIVE:Current Hospital Course: Chart reviewed; see belowReason for Occupational Therapy Consult: s/p RTHRRelevant Past Medical History: HTN;depressionPatient Report: Pt reports he is ready for d/c to home.Home EnvironmentPatient Lives With: FamilyAssistance Available: 24 HourEntry To Home: Stairs;With RailNumber Of Stairs Into Home: 3Number Of Stairs To Bed/Bath: 1 flightStairs to Bed/Bath with: Unilateral RailEquipment Owned: Commode-Raised;Crutch(es);Wheeled Walker;Promotions Officer;SockAide;Shower ChairPrior Functional Level: Within Functional LimitsOBJECTIVE:CURRENT FUNCTIONAL STATUS:Current Activities of Daily Living Assist LevelFeeding IndependentGrooming IndependentBathing Upper Body IndependentBathing Lower Body Minimal AssistanceDressing Upper Body IndependentDressing Lower Body Modified IndependentToileting Modified IndependentInstrumental Activities of Daily Living Assist LevelMeal/Beverage PrepLight CleaningLaundryMedication Management with StrategiesFunctional Mobility Assist LevelRollingSupine to Sit Modified IndependentSit to Supine Modified IndependentScooting IndependentSit to Stand Modified IndependentStand to Sit Modified IndependentBed to Chair Modified IndependentWheeled WalkerToilet/Commode Modified IndependentFunctional MobilityPlease see discipline specific clinical documentation flowsheet forcomplete details for this therapy evaluation/treatment.SIGNATURE: DHIRAJ Clay/Angelic PATIENT NAME: Ranjana McdonoughDATE: August 20, 2018 : 10:37 AM [facility] THERAPY NT HNO ID: [id number] thor: Ibeth (Pt) DreifkeService: Physical TherapyAuthor Type: Physical TherapistType: Therapy (PT/OT/Speech/Resp)Filed: 08/20/2018 10:02 AMNote Text:Physical Therapy TreatmentSERVICE DATE: 08/20/2018SERVICE TIME: 914 to 953ROOM: [id number] Discharge Disposition: Home PTRecommended Discharge Equipment: No equipment needs anticipatedPT Recommendations to Nursing: Ambulate with device;To bathroom;Inhalls;Transfer to/from chair;OOB for Meals;With assist of 1 personDevice: Wheeled WalkerPT 6 Clicks Score: 24Precautions/Activity Restrictions: Total Hip Replacement;Weight BearingRestrictionsExtremity With Weight Bearing Restricted: Right Lower ExtremityRight Lower Extremity Weight Bearing Status: WBATTotal Hip Replacement Precautions: PosteriorASSESSMENT :Patient is doing well with mobility and able to demonstrate understandingof post-op precautions. Patient was able to ambulate safely with bothwheeled walker and crutches. Patient is cleared for discharge home from aPT standpoint.Patient Disposition at Start of Session: Supine in Bed;Call Briggs inReach;SCDsPatient Disposition at End of Session: Supine in Bed;Call Briggs inReach;SCDsTolerated Full SessionPhysical Therapy Problem List: Decreased Range Of Motion;DecreasedStrength;Functiona l Mobility ImpairmentPatient /Caregiver Goals: Go HomeGoals for Plan of Care:Able to perform HEP with: IndependentTransfer supine to/from sit with: IndependentTransfer sit to/from stand with: IndependentAmbulate with: Modified IndependentDistance: 150 feetDevice: Wheeled Walker;Crutch(es)Ambulate up and down steps with: SupervisionNumber of steps: 6Device: Rail;Crutch(es)Progress Toward Goals: Progressing as expectedRehab Potential: GoodPLAN:Treatment Frequency (times per week): 7 Current admissionTreatment Interventions: Education;Joint Mobility;Strengthening;FunctionalM obility TrainingPlan of Care developed with: PatientTREATMENT INTERVENTIONS:Therapy Diagnosis: Reduced mobility-otherInterventions Provided: Therapeutic Exercise (20233);Therapeutic Activity(14172);Gait Training (91597)Therapeutic Exercise (84630) Treatment Minutes: 131 unitSkilled Intervention(s): Instruction in therapeutic exerciseVerbal and tactile cuing providedEducation in HEPTherapeutic Activity (42657) Treatment Minutes: 131 unitSkilled Intervention(s): Instructed patient in supine to and from sitpushing with upper extremities to sit upInstruction in sit to and from stand technique with proper hand placementand body positioning at edge of bed/chairEducation with post-op precautions and activitiesGait Training (47808) Treatment Minutes: 131 unitSkilled Intervention(s): Instruction in sequencing, gait pattern,Instruction in correction of gait deviations, Instruction in WBprecautions, Instruction in stair negotiation with rail and crutch,Instruction in use of equipment, cues for sequence and pattern and use ofwheeled walker and crutchesTotal Timed Code Treatment Minutes: 39Total Treatment Time (minutes): 39FUNCTIONAL G CODE:PT 6 Clicks Score: 24 (08/20/18 0915)Mobility: Walking and Moving Around Current Status (G8978): CK ()Mobility: Walking and Moving Around Goal Status (G8979): CI ()Based on clinical assessment and the score on the 6 Clicks FunctionalAssessment Tool, the G code and corresponding severity modifiers aredocumented above.SUBJECTIVE:Current Hospital Course: Chart reviewed and no significant medical updatesrelevant to therapy were notedReason for Physical Therapy Consult : s/p right THR 08/19/18Relevant Past Medical History: HTN; depression, osteonecrosis right hipPatient Report: Patient reports that he is ready to go home today. Stateshe is a little more sore than yesterday.Home EnvironmentPatient Lives With: FamilyAssistance Available: 24 HourEntry To Home: Stairs;With RailNumber Of Stairs Into Home: 3Number Of Stairs To Bed/Bath: 1 flightStairs to Bed/Bath with: Unilateral RailEquipment Owned: Crutch(es);Wheeled WalkerPrior Functional Level: Within Functional LimitsOBJECTIVE:CURRENT FUNCTIONAL STATUS:Current Functional Mobility Assist Level Additional InformationRollingSupine to Sit SupervisionSit to Supine SupervisionScootingSit to Stand Modified IndependentStand to Sit Modified IndependentBed to ChairToilet/CommodeGait Modified Independent Gait Device: Wheeled Walker;Crutch(es) Gait Distance (feet): 150 feet x 2Stairs Supervision Stairs Device: Rail;Crutch(es)Number of Stairs: 6Curb StepCar TransferGait Deviations Right Lower Extremity: Stance time decreased;Heel strikeduring initial stance decreased;Push-off during terminal stance decreasedGeneral Gait Deviations: Verito decreased;Step length decreasedPlease see discipline specific clinical documentation flowsheet forcomplete details for this therapy evaluation/treatment.SIGNATURE: Ibeth Hernandes PT PATIENT NAME: Ranjana McdonoughDATE: August 20, 2018 : 10:00 AM [facility] ANES Jonas 08-19-2018 ANES POST HNO ID: [id number] thor: Rm Garzae: AnesthesiologyAuthor Type: AnesthesiologistType: Anesthesia PostOpFiled: 08/19/2018 4:49 PMNote Text:POST ANESTHESIA EVALUATION NOTESERVICE DATE: 08/19/2018SERVICE TIME: 4:49 PMDOB: 1970Vitals: 08/19/1810Temp: 36.4 ?C (97.5 ?F) 36.4 ?C (97.5 ?F) 36.5 ?C (97.7 ?F) 37 ?C (98.6?F) 08/19/1810BP: 100/61 104/70 110/72 121/79 08/19/1810Pulse: 61 61 (!) 59 79 08/19/1810Resp: 16 16 16 18 5 0 6 083423GtH3: 100% 100% 96% 98%Validated Vital Signs: YesNo apparent anesthetic complications. The patient is appropriatelyhydrated with stable respiratory and cardiovascular status. Patient hassafe and adequate airway control. The patient has appropriate pain reliefand no significant post operative nausea or vomiting. The patient hasachieved baseline mental status.Intra-Operative Events: No Significant Anesthesia EventsFurther assessment by Anesthesia Service: NoneOther Remarks:SIGNATURE: Rm Jose MD PATIENT NAME: Ranjana McdonoughDATE: August 19, 2018 : 4:49 PM PAGER/CONTACT #: [phone] [facility] ANES PREOPon 08-19-2018 ANES PREOP HNO ID: [id number] thor: Omar VinesService: AnesthesiologyAuthor Type: AnesthesiologistType: Anesthesia PreOpFiled: 08/19/2018 6:56 AMNote Text: ANESTHESIOLOGY DAY OF SURGERY NOTESERVICE DATE: 08/19/2018SERVICE TIME: 6:56 AMDOB: 1970Procedure(s) (LRB):ARTHROPLASTY REPLACE JOINT TOTAL HIP (Right)Surgeon(s):Jaylen Casiano MDEstimated body mass index is 29.84 kg/m? as calculated from the following: Height as of 08/08/18: 182.9 cm (6'). Weight as of 08/08/18: 99.8 kg (220 lb).Most recent hematocrit and potassium results:Hematocrit 47.3 07/04/2018Potassium 4.8 08/08/2018ANES DOS/PREOP NOTE:Vitals: 625BP: 145/98Pulse: 71Resp: 16Temp: 36.9 ?C (98.4 ?F)TempSrc: Temporal ArterySpO2: 98%ACTIVE PROBLEM LISTOsteonecrosis of Right Hip (Hcc)Avn (Avascular Necrosis of Bone) (Hcc)PAST MEDICAL HISTORYDiagnosis Date- Alcohol use 3 bourbons a night- Depression- HTN (hypertension)- Osteonecrosis of right hip (HCC)No past surgical history on file.FAMILY HISTORYProblem Relation Age of Onset- Family history unknown: YesSocial History:Social HistorySubstance Use Topics- Smoking status: Never Smoker- Smokeless tobacco: Never Used- Alcohol use 3.0 oz/week 3 Shots of liquor per week Comment: Gregor current facility-administered medications on file prior to encounter.Current Outpatient Prescriptions on File Prior to Encounter:citalopram (CELEXA) 20 mg tablet Take 20 mg by mouth once daily.amLODIPine (NORVASC) 5 mg tablet Take 5 mg by mouth once daily.Current Facility-Administered Medications:lidocaine 10 mg/mL (1 %) 1-2 mg injection (XYLOCAINE) 0.1-0.2 mLINTRADERMAL PRN Ivy N (Pa-C) Millerlactated ringers infusion 5-30 mL/hr INTRAVENOUS CONTINUOUS Ivy N (Pa-C)MillerceFAZolin iv piggyback 2 g in D5W (iso-osmotic) 100 mL (ANCEF) 2 gINTRAVENOUS ONCE Ivy N (Pa-C) Millertranexamic acid 1,000 mg in NaCl 0.9% 100 mL (CYKLOKAPRON) 1,000 mgINTRAVENOUS ONCE Ivy N (Pa-C) Millertranexamic acid 1,000 mg in NaCl 0.9% 100 mL (CYKLOKAPRON) 1,000 mgINTRAVENOUS ONCE Ivy N (Pa-C) MillerAllergies: ALLERGIESNo Known AllergiesDOS EXAM: Adequate NPO Status: YesAnesthetic Risks, Benefits, Alternatives, Personnel and Consent Discussed:YesPatient agrees to proceed: YesPrevious Anesthesia: No history of adverse eventAirway Assessment: MP 2; Neck ROM: Full ROM without neurologic symptoms;Airway Evaluation: No significant abnormalitiesSymptoms of Sleep Apnea: NoneDentition: Teeth intactAdditional Physical Exam:Lungs: Patient health status unchanged since recent history and physical.See history and physical for exam findings.Cardiac: Patient health status unchanged since recent history andphysical. See history and physical for exam findings.Additional Pertinent Findings: N/ABlood Products: Not anticipated for this procedureAnesthetic Plan: Regional with general as back upAnesthetic Monitoring: Standard ASA MonitorsPain Management Plan: Parenteral or OralASA Class: 2Other Medical Problems: NoneChronic Beta Naveed medication administered within 24 hours: N/AI have interviewed and examined the patient. I have reviewed the medicalrecord and/or the pre-anesthesia evaluation, pertinent labs, and testresults.Significant changes in the patient's condition since the History andPhysical, not otherwise documented in primary service progress notes: NoThis contains updated information obtained within 48 hours ofSurgery/Procedure.SIGNATURE: Omar Vines MD PATIENT NAME: Ranjana McdonoughDATE: August 19, 2018 : 6:56 AM CSN: [id number] [facility] CASE MGT INIT SHARONon 2017 CASE MGT INIT SHARON HNO ID: [id number]: Nicole (Rn) CHAPINCITO Gilervice: Care ManagementAuthor Type: Registered NurseType: Care Mgt Initial AssessmentFiled: 08/19/2018 12:11 PMNote Text:CARE MANAGEMENT: ASSESSMENT AND DISCHARGE PLANSERVICE DATE: 08/19/2018SERVICE TIME: 12:07 pmPRIMARY CARE PHYSICIAN:See Khalil II, MDPhone: [phone] STATUS: InpatientNeeds Prior to Discharge: Pharmacy Bedside Delivery;OT/PT Evaluation;HomeCare OrderMEDICAL:Patient/Representativ e Stated Goals:To have reduction in painTo have reduction in symptomsTo improve my functional statusHealth Insurance: [facility] CHOICE PLUSHealth Issues Impacting Discharge Plan: HTNLast Admission Date: noneIs this Within the Past 30 days? NoAdvance Directive:Current Advance Directive: Health Care Power of AttorneyIn Chart: YesUp To Date and Valid: YesHealth Literacy:1. How often do you need to have someone help you when you readinstructions, pamphlets, or other written material from your doctor orpharmacy? Never - 12. How confident are you filling out medical forms by yourself? Extremely- 1If Patient scores > 3 on either question, the following interventions wereput into place:Patient did not score > 3FUNCTIONAL AND COGNITIVE/BEHAVIORALPRIOR TO ADMISSION:Baseline Mental Status: Alert AND Oriented, Person, Place , Time andSituationFunctional Status: IndependentDoes Patient Currently Receive Any Community Services or Home Care? NoneEquipment Prior to Admission: NoneHas crutches which he prefers to use, does have a wheeled walker ifneeded. Also has a raised toilet seat.Has the Patient Been in a [facility] Facility in the Past 30 days? NoSOCIAL:Living Arrangement: HomeLives With: SpouseFinancial Resources: N/APrimary Contact: Extended Emergency Contact InformationPrimary Emergency Contact: Yung Mcdonough Ucvgdjol: SpouseSupportive: YesOther Important Patient Contacts: NoneCaregiver Assessment:Caregiver is ready, willing and able to meet the patient's needs asrecommended by the inter-professional team? YesPatient's transition needs and plan for meeting these needs: PT / OT evalsDoes the patient have an acute stroke diagnosis, or has the patient had astroke during this admission? NoMedication Adherence:I am convinced of the importance of my prescription medication: Agreecompletely - 0I worry that my prescription medication will do more harm than good to meDisagree completely - 0I feel financially burdened by my oio-eo-syxswf expenses for myprescription medication: Disagree completely - 0Patient is categorized as low risk < 2Are you interested in bedside delivery of your medications? YesFood Concerns:In the Last Month, Have You had Trouble Getting Food? No trouble gettingfoodDuring the Last Month, Have You Worried Whether Your Food Would Run OutBefore You Had Enough Money to Buy More? NoIs the Patient Psychosocially Complex? NoASSESSMENT AND PLAN:Medical Needs: NonePsychosocial Needs: hx of ETOH useFREEDOM OF CHOICE EXPLAINED:Yes Ranjana Mcdonough Disclosure ProvidedPOTENTIAL TRANSITION PLANSHome OT/PTCare Management Department will continue to follow.SIGNATURE: Nicole Gil RN PATIENT NAME: Ranjana McdonoughDATE: August 19, 2018 : 12:07 PM PAGER/CONTACT #: [phone] [facility] CONSULTon 08-19-2018 CONSULT HNO ID: [id number] thor: Saud HermosilloniService: General Internal MedicineAuthor Type: PhysicianType: ConsultsFiled: 08/19/2018 5:36 PMNote Text:INTERNAL MEDICINE CONSULT HISTORY AND PHYSICALPLEASE DO NOT REMOVE FROM THE CHART OR MODIFY PRINTED COPYPatient Name: Ranjana McdonoughMRN: [id number] CARE PHYSICIAN: See Khalil II, [facility] [place] [facility] [place] PHYSICIAN: Jaylen Casiano MD MDDATE of CONSULT: 5:33 PMHPI: This is a 48 year old male who presents with ARTHROPLASTY REPLACEJOINT TOTAL HIP (Right). Pt seen denied cp/ sobPAST MEDICAL HISTORY:PAST MEDICAL HISTORYDiagnosis Date- Alcohol use 3 bourbons a night- Depression- HTN (hypertension)- Osteonecrosis of right hip (HCC)PAST SURGICAL HISTORY:No past surgical history on file.FAMILY HISTORY:FAMILY HISTORYProblem Relation Age of Onset- Family history unknown: YesSOCIAL HISTORY:Social HistorySubstance Use Topics- Smoking status: Never Smoker- Smokeless tobacco: Never Used- Alcohol use 3.0 oz/week 3 Shots of liquor per week Comment: bourbonALLERGIES:ALLERGIESNo Known AllergiesPRIOR TO ADMISSION MEDICATIONS:Prescriptions Prior to Admission:citalopram (CELEXA) 20 mg tablet Take 20 mg by mouth once daily. Disp:Rfl: 08/19/2018 at 430amLODIPine (NORVASC) 5 mg tablet Take 5 mg by mouth once daily. Disp:Rfl: 08/18/2018 at 7REVIEW OF SYSTEMS:GENERAL: No weight loss, malaise or feversHEENT: Negative for frequent or significant headaches, No changes inhearing or vision, no nose bleeds or other nasal problemsNECK: Negative for lumps, goiter, pain and significant neck swellingRESPIRATORY: Negative for cough, hemoptysis, wheezing, COPD, dyspnea orshortness of breathCARDIOVASCULAR: Negative for chest pain, leg swelling, hypertension, CHFor palpitationsGI: No nausea, vomiting, or diarrheaSKIN: Negative for lesions, rash, and itchingHEMATOLOGY/LYMPHOLOGY: Negative for prolonged bleeding, bruising easily orswollen nodesENDOCRINE: Negative for cold or heat intolerance, polyuria, polydipsia andgoiterNEURO: No history of headaches, syncope, paralysis, seizures or tremorsAll other reviewed and negative other than HPI.PHYSICAL EXAM:Blood pressure 121/79, pulse 79, temperature 37 ?C (98.6 ?F), resp. rate18, SpO2 98 %.General appearance: well appearing, alert, in no acute distress andwell-hydrated, well nourishedSkin: Skin color, texture, turgor normal, no suspicious rashes or lesionsHead: normalEyes: Anicteric sclera. Pupils are equally round and reactive to light.Extraocular movements are intact.Ears: external ears normal, canals clear, TM's normalNose/Sinuses: NegativeOropharynx: Lips, mucosa, and tongue normal, teeth and gums normal,oropharynx normalNeck: Supple, no adenopathy; thyroid symmetric, normal size, no bruitsBack: no pain to palpation over spine or costovertebral angles, reflexesare 2+ and symmetric, motor and sensory appear to be normalLungs: clear to auscultation no wheezing or rhonchiHeart: RRR without murmur, gallop, or rubs. No ectopyAbdomen: Normal abdominal exam, Abdomen soft, non-tender. Bowel soundsnormal. No masses, organomegalyExtremities: Extremities normal. No deformities, edema, or skindiscoloration. Good capillary refill.Peripheral pulses: NormalNeuro: Gait normal. Reflexes normal and symmetric. Sensation grosslyintact.DATA:CBC, Coags, BMP, Mg, PhosCSF AND DilantinLiver Function, Amylase, AND LipaseRadiology:Imaging reviewed and discussed with the patient.IN-PATIENT MEDICATIONS:Current hospital medications:lactated ringers infusion 5-30 mL/hr INTRAVENOUS CONTINUOUSamLODIPine 5 mg tab(s) (NORVASC) 5 mg ORAL DAILYcitalopram 20 mg tab(s) (CeleXA) 20 mg ORAL DAILYacetaminophen 1,000 mg tab(s) (TYLENOL) 1,000 mg ORAL q 8 Hondansetron (PF) 4 mg injection (ZOFRAN) 4 mg INTRAVENOUS q 6 H PRN[START ON 08/20/2018] docusate sodium 100 mg cap(s) (COLACE) 100 mg ORALBIDNaCl 0.9% iv infusion 75 mL/hr INTRAVENOUS CONTINUOUSoxyCODONE IR 5-10 mg tab(s) (ROXICODONE) 5-10 mg ORAL q 3 H PRNondansetron 4 mg tab(s) (ZOFRAN) 4 mg ORAL q 6 H PRN[START ON 08/20/2018] magnesium hydroxide 400 mg/5 mL 30 mL (MOM) 30 mLORAL DAILY PRN[START ON 08/21/2018] bisacodyl EC 10 mg tab(s) (DULCOLAX) 10 mg ORAL DAILYaluminum-magnesium hydroxide-simethicone 200-200-20 mg/5 mL 30 mL(MAALOX,MYLANTA,MAG-AL PLUS) 30 mL ORAL q 2 H PRN[START ON 08/20/2018] ascorbic acid (vitamin C) 500 mg tab(s) (VITAMIN C)500 mg ORAL BID w MEALSceFAZolin iv piggyback 2 g in D5W (iso-osmotic) 100 mL (ANCEF) 2 gINTRAVENOUS q 8 H[START ON 08/20/2018] aspirin, enteric coated 81 mg tab(s) 81 mg ORAL BIDHYDROmorphone 0.4 mg injection (DILAUDID) 0.4 mg INTRAVENOUS q 4 H PRNacetaminophen 325-650 mg tab(s) (TYLENOL) 325-650 mg ORAL q 4 H PRNketorolac 15 mg injection (TORADOL) 15 mg INTRAVENOUS q 6 HdiazePAM 5 mg tab(s) (VALIUM) 5 mg ORAL q 2 H PRNdiazePAM 10 mg tab(s) (VALIUM) 10 mg ORAL q 2 H PRNthiamine 100 mg tab(s) (VITAMIN B1) 100 mg ORAL TIDACTIVE PROBLEM LIST:ACTIVE PROBLEM LISTOsteonecrosis of Right Hip (Hcc)Avn (Avascular Necrosis of Bone) (Hcc)ASSESSMENT AND PLAN:1.alcohol abuse2 htn3 hyperlipid4. DepressionSIGNATURE: aSud Aldana, MDDATE: August 19, 2018TIME: 5:33 PM [facility] NURSING PROGon 08-19-2018 Protein mass conc HNO ID: [id number]: Ed (Rn) CHAPINCITO Pachecoervice: (none)Author Type: Registered NurseType: Nursing Progress NoteFiled: 08/19/2018 4:17 PMNote Text:PT ADMITTED TO ORTHO FLOOR SP TOTAL HIP SURGERYPT ALERT AND ORIENTED TIMES 3ORIENTED TO ORTHO FLOOR AND PROTOCOLVERY DECREASED SENSATION TO CA EXTREMITIESVERY WEAK PUSH /PULL TO CA LOWER EXTREMITYSCD MAINTAINEDIVF MAINTAINEDDUE TO VOIDHOME GOING SCRIPTS FAXED TO PHARMACYFAMILY AT BEDSIDE UPDATEDASSESSMENT AND EDUCATION/PLAN OF CARE COMPLETEDCONTINUE TO [id number] FILLED AND GIVEN TO PT'S TO TAKE HOME Normal [facility] Protein mass conc HNO ID: [id number]: Beatriz (Rn) Patrice Dockery: (none)Author Type: Registered NurseType: Nursing Progress NoteFiled: 08/19/2018 9:49 AMNote Text:Straight cath at end of case 275 ml by Taye Whatley PaDischarge Status:Patient is Awakening, and is no airway issues. Skin condition was WNL.Transported to recovery room via bed with siderails up. Accompanied byanesthetist and AMBROSIO/. Normal [facility] Protein mass conc HNO ID: [id number]: Beatriz MorrisRn) Patrice Dockery: (none)Author Type: Registered NurseType: Nursing Progress NoteFiled: 08/19/2018 8:23 AMNote Text:Patient transported to the OR via cart, accompanied by Katie Alegre.Level of consciousness: Alert and Oriented x 3Emotional Status:CalmSensory Impairments: NoLanguage Barrier: NoMobility Impairments: Yes, spinalAddressed any patient concerns regarding consents, OR environment, andanesthetics.Body temperature maintained by maintaining OR room temperature kcwgfod34-42 degrees F, providing patient with warm bath blankets, limiting areasof exposure and providing warm irrigation fluid. Normal [facility] Protein mass conc HNO ID: [id number]: Adriana MorrisRn) Patrice Tineo: (none)Author Type: Registered NurseType: Nursing Progress NoteFiled: 08/19/2018 7:07 AMNote Text: Nursing Progress NotePatient Name: Ranjana McdonoughMRN: [id number] Location: [facility]/* Daily Note:AANDO. Rt leg pink, warm, brisk refill. Strong dorsiflexion, possensation. Pedal pulses palp. Pain Rt hip 2/10. Denies numbness/tingling.This note was completed by: Adriana Tineo RN [facility] OPERATIVE NOon 08-19-2018 OPERATIVE NO HNO ID: [id number] thor: FELECIA Duganervice: Orthopaedic SurgeryAuthor Type: PhysicianType: Operative ReportFiled: 08/19/2018 9:32 AMNote Text:OPERATIVE/PROCEDURE REPORTLOG ID: [id number]/PROCEDURE DATE: 08/19/2018INCISION/PROCEDURE START TIME: 8:10 AMINCISION CLOSE/PROCEDURE END TIME: 9:35 AMSURGEON(S)/PROCEDURALIST(S) AND PLANT PULLER(S):Surgeon(s) and Role: * Jaylen Casiano MD - Primary * Indra Campuzano - Resident - AssistingPhysician Interpretative Dancer: Radha Mak (Pa)) CoughlinPRE-OP/PRE-PROCEDURE DIAGNOSIS: Osteonecrosis of right hip (HCC) [M87.9]POST-OP/POST-PROCEDURE DIAGNOSIS: Osteonecrosis of right hip (HCC) [M87.9]Operation:1) Right Total Hip Arthroplasty (CPT 89009)ANESTHESIA: SpinalEstimate Blood Loss: 100ccFluids: Crystalloids: 1800cc Colloids: NoneUOP: N/A (no nunez - straight cath'd at the end of the case)Implants:1) Biomet G7 PPS Acetabular Component, Size 58, 3-Hole2) Biomet E-Poly Acetabular Polyethylene, Size 58 OD, 36 ID3) Biolox Delta Ceramic Femoral Head, Size 36+34) Biomet Microplasty Femoral Stem, Size 12 SOProcedure Details:Operative Indications:The patient is an 48 year old male with a history EtOH-associatedosteonecrosis of bilateral hips, right side is more symptomatic. 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 Multiple conservative measures to relieve the pain have beenattempted, but these have failed. After the risks, benefits, andalternatives were discussed, the he opted for a total hip arthroplasty.Risks, Benefits, and AlternativesThe patient was counseled extensively regarding the options for treatmentincluding operative and non-operative forms of treatment and afterthorough counseling has elected to proceed with surgical treatment. Thepatient was counseled that with surgical treatment there is thepossibility that their condition might not improve or may even worsen.Specific surgical risks discussed include bleeding, the need for possibleblood product transfusion, infection, post-operative pain, damage tonerves and blood vessels, wound dehiscence and wound healing problems,limb length discrepency, incomplete relief of pain, post-operativeinstability (dislocation), the need for physical therapy, inability toreturn to desired level of function, post-operative limp, generalizeddissatisfaction with the surgical procedure, complex regional painsyndrome, as well as medical complications such as DVT, PE, anestheticcomplications, cardiopulmonary complications and .Pre-operatively, the patient was counseled as to the incidence of MRSAinfection in our institution, and was appropriately screened with nasalswab testing, and treated based on those results.The patient expressed understanding of all the issues described above andhas elected to proceed with the aforementioned procedure.Operative Procedure:After the appropriate surgical site was marked, the patient was brought tothe operating room. A huddle was performed with all pertinent surgicalpersonnel, anesthesia personnel, and nursing staff. The patient then wastransferred from their bed to the operating table gurney and underwentspinal anesthesia. A Nunez catheter was not inserted, but he was straightcatheterized at the end of the case in the usual sterile manner. Thepatient was then positioned in the lateral decubitus position, using theInnomed hip positioners. The operative leg/site was appropriatelyidentified and pre-draped. All bony prominences were well padded, and thecontralateral infrapatellar knee cap was identified using an EKG lead. Theleg lengths were then checked prior to draping, so as to establish aproprioceptive ?feel? for comparison purposes. The leg was then preppedand draped in the usual sterile manner, using Chloraprep solution. Oncethe prep was allowed 3 minutes to dry, the leg was draped in sterilefashion, using an AuFranc drape technique. A surgical time-out wasperformed. Preoperative antibiotics were verified given within one hour ofincision time, prior to incision.A curve-linear incision was made in the skin at the postero-lateral aspectof the greater trochanter, and carried down to the deep fascia using asharp blade. Pinpoint subcutaneous ?bleeders? were then identified andcauterized. The fascia of the gluteus yaneth and IT band was incised inline with the incision, over the mid-line of the femur. A Charnleyretractor was then inserted, being careful to assess the position of thesciatic nerve, and the bursal tissue removed. The gluteus medius wasidentified, using a cob to find the plane between the medius and minimus.A blunt Cobra retractor was placed in this place, giving excellentexposure to the piriformis tendon. The gluteus minimus fascia was thenincised on the immediate posterior aspect of the piriformis tendon. Thepiriformis tendon was released from its insertion in the fossa, and taggedwith a #1 Vicryl suture. The Bills was then used to carefully dissect theplane between the minimus and the hip capsule and the blunt Cobra wasreplaced in this place, giving excellent exposure to the capsule. Thecapsule was released in an ?H? fashion from the backside of the femur, andtagged at the inferior and superior corners with a #1 Vicryl. The shorteternal rotators and quadratus femoris were also released off the backsideof the femur. The superior capsule was then released from the superiorfemoral neck. We then checked limb lengths by landmarks, including theEKG leads on the opposite leg in relation to the inferior pole thepatella, as well as the heels. The leg was internally rotated and thefemoral head was dislocated from the acetabulum.The femoral neck was identified, and appropriate measurements were takenusing a femoral broach in order to identify the angle of the neck cut, aswell as the level (matching the center of the femoral head with the centerof rotation on the broach). After 2 blunt Cobra retractors were placed oneither side of the femoral neck, the femoral neck osteotomy was made thruthe medial calcar with the sagital saw, and the neck cut complete using a1? osteotome in line with the greater trochanter. The remainingpiriformis fossa soft tissue contents were then cleaned away.The proximal femur was now appropriately exposed. A ronjour was used toremove any excess bone at the medial side of the greater trochanter. Thiswas followed by the ?loyd cutter? to remove any remaining lateralfemoral neck, and then the canal finder. A sequential broach system wasutilized, being careful to lateralize the broach in order to prevent varuspositioning of the component. Once a tight fit was identified, both inrotational and axial stability planes, the appropriate broach size wasretained in the femur for future trialing. The leg was then allowed tolay back down on the table.Attention was now diverted to the acetabulum. A large bone hook wasutilized on the inside of the greater trochanter in order to allowvisualization of the anterior acetabulum. The Diann #1 blue-handleretractor was then placed over the anterior wall, interpositioned betweenthe capsule and the labrum. The bone hook was then remove and the femurheld out of the way with the #1 retractor. The inferior capsule was splitin a vertical fashion to complete the ?H? capsular incision, and aposterior ?finger? retractor was positioned under the transverseacetabular ligament, holding the posterior capsule and external rotatorsout of the surgical field. The labrum was circumferentially removed , andthe pulvinar from the cotyloid fossa. Any medial osteophytes were alsoremoved utilizing a ?? osteotome in order to visualize the true medialwall. Once appropriate acetabular exposure was achieved, acetabularreaming commenced until an appropriate rim fit and medial wall fit wasattained. A trial acetabulum was inserted that was equivalent to thereamer size, and noted to have excellent fit. The trial component versionand abduction was noted in relation to multiple landmarks, including theischium, the superior dome, and the pubis bone. The real acetabularcomponent was then opened, and placed in a mirror position that that wherethe trial component had been placed, checking version and abduction,again, against multiple landmarks. The goal was to attain 20-25 degreesof anteversion, and 40-45 degrees of abduction. A Tonsil hemostat wasused in the medial hole of the component to verify the cup was seated onthe medial wall. An ?Au Franc? alignment guide was then used once the cupto verify alignment one last time. We opted not to place any screws inthe acetabulum, given the excellent press-fit. All peripherally rimmingosteophytes were removed, as needed, utilizing a ?? curved osteotome. Thewound was then irrigated with 1L of irrigation, and the appropriate highlycross-linked polyethylene shell was impacted into place, being careful toverify that the locking mechanism was appropriately satisfied. Finally,20cc of local injection cocktail was placed into the anterior and inferiorcapsular locations, to aid with post-operative pain control.A trial trunion and head, (a standard offset stem was pre-operativelytemplated) utilizing various angles and lengths as needed, was trialeduntil a combination was noted to give the most stable ROM with no sign ofimpingement or dislocation. Abductor tension and quadriceps tension wasalso taken into account, to best reproduce soft tissue tension that hadbeen present prior to surgery. Leg lengths were verified using both theEKG lead on the contralateral leg, as well as the heels.Once final components were selected, they were opened on the back table inthe usual sterile fashion. The wound was again irrigated with 500cc ofirrigation, and the final and remaining components were now placed, beingcareful to seat the femoral component to the level that the trial hadachieved. The head was impacted into place after cleaning and drying thetrunion of all debris and moisture. The femoral head was re-located intothe acetabulum under the guidance of the surgeon, with no debris noted canelo incarcerated in the articulating junction. Once the final componentswere in place, the final hip construct was once again checked for ROM,stability, and leg length ? all of which were noted to match as closely aspossible the patient?s normal anatomy. The wound was then irrigated withan additional 1L of normal saline irrigation.The remaining local injection cocktail was utilized in the posteriorrotators/capsule, the abductors, the gluteus yaneth, and subcutaneoustissue. The skin was separately injected using a second needle. Closurethen commenced with repair of the inferior vertical capsular split using abaseball stitch #1 Vicryl. The two tagged capsule ends, as well as thepiriformis tendon, were then re-attached at the intersection of theposterior abductor (gluteus medius) tendon to the greater trochanter,utilizing a soft tissue repair technique (#2 Tycron in a rbyscc-ql-slhztrhniaysra). The external rotators were re-approximated using #1 Vicryl,and the IT band + gluteus yaneth fascia was closed with six interrupted#2 Tycrons in Figure-8 fashion, followed by a running #1 Vicryl over theentirety of the split. The deep fat was closed with interrupted #1 Vicryl(to minimize any ? space?), and the subcutaneous layer closed withinterrupted, buried 2-0 Vicryl. Finally, the skin was closed with arunning 3-0 subcuticular monocryl, steristrips at the tails, skin glue,and a silver dressing.The operative leg was wrapped from toes to groin with a sterilecompression dressing, and a pillow placed between the legs. The patientwas then awoken from their anesthesia and transferred back to the hospitalbed from the operating room table gurney. [facility].1g of transexemic acid was given 30min prior to incision, and then asecond gram was given during closure of the wound.All counts, verified in 2 separate count episodes, were correct at the endof the case.Post-Operative Plan:- AP PACU Pelvis- Toradol OK for pain control- WBAT on the operative leg, pillow between the legs until day #1- Strict posterior dislocation precautions (no flexion past 90 degrees,?goal post? maneuvers, no cross midline adduction of operative leg)- Antibiotics x24hrs as a prophylactic- Medicine consult post-op --> will need CIWA protocol given whiskeydrinking history (see my office note)- Home with Mobic 15mg QDay + Prilosec (to protect stomach lining)- DVT ppx: SCD pumps while in the hospital, ASA EC 81mg PO BID x4 weeks- Dispo: Plan for discharge once pain controlled and all PT/OT goals met.POD#1. Plan for discharge to Home with HPT.ESTIMATED BLOOD LOSS: 100 mlsSPECIMENS:1) Right Femoral Head (permanent)IMPLANTABLE DEVICES: See aboveDRAINS: NoneCOMPLICATIONS: NonePARTICIPATION IN SURGERY/PROCEDURE: ATTESTATION STATEMENT: I was presentfor all of the critical portions of the operation and performed orassisted in all critical portions. Fellow / Residents / PA-Cs (MD Radha; Radha Garcia PA-C; Deniz Whatley PA-C ) performed partof the closure under supervision, and assisted during the operation. I wasimmediately available for the duration of the entire case.SIGNATURE: Jaylen Casiano MD PATIENT NAME: Ranjana McdonoughDATE: August 19, 2018 : 9:26 AM PAGER/CONTACT #: [phone] [facility] PT EDon 08-19-2018 PT ED HNO ID: [id number] thor: Kim (Rn) CHAPINCITO Berryervice: NursingAuthor Type: Registered NurseType: Patient EducationFiled: 08/19/2018 6:07 AMNote Text:PATIENT EDUCATION TOPIC: PROCEDURE / SURGERY: Pre-op Teaching:Logistics ProtocolsComplication PreventionSurgical Safety PrinciplesPATIENT NAME: Ranjana McdonoughMRN: [id number] [facility] SPRING HOPE/READINESS TO LEARNCOGNITIVE ABILITY: Alert and orientedMOTIVATION TO LEARN: InterestedFAMILY SUPPORT: High - Very involved in pt careINSTRUCTION PROVIDED TO: PatientPATIENT LEARNS BEST BY: Verbal InstructionFACTORS AFFECTING LEARNING: NonePHYSICAL LIMITATIONS AFFECTING LEARNING: NoneLEARNING RESPONSEDIAGNOSIS: ADULT:PATIENT/FAMILY RESPONSE: Verbalizes understanding of: [id number]-Nkjyzww action to take to follow pre-operative instructionsMETHOD OF INSTRUCTION: Verbal instructionFOLLOW-UP PLAN: Complete - No need for follow-upINSTRUCTIONAL AIDS USED: NASUPPLEMENTAL MATERIAL PROVIDED TO PATIENT: NoneREFERRAL (RECOMMENDATION): NoneElectronically Signed By: Kim Berry, JOSE FRANCISCO [facility] SURGICAL PATHOLOGYon 018 SURGICAL PATHOLOGY [facility]: [id number] Physician: JAYLEN CASIANO MD FINAL DIAGNOSISRight femoral head and acetabular bone, arthroplasty - Avascular necrosis. Davie Hodges M.D.(Electronic Signature) SPECIMEN SUBMITTEDA: RIGHT ACETABULAR SHAVINGS AND FEMORAL HEAD CLINICAL DATAOSTEONECROSIS OF RIGHT HIP;RIGHT TOTAL HIP ARTHROPLASTY;GROSS DESCRIPTIONA. Received in formalin labeled as right hip consists of a femoral headmeasuring approximately 7.0 x 5.5 x 5.5 cm. The articular surface is tanand intact, with no eburnation grossly appreciated. Several osteophytes areidentified. The specimen is sectioned with a band saw to reveal an area ofyellow soft sequential bone necrosis. No subchondral cysts identified.There is no evidence of preexisting core biopsy appreciated. No soft tissueis present. Rcis sections of the bone are submitted in cassettesA1-A2 following decalcification. TN/ryan 08/19/2018 Gross examination performed at [facility], [address] [place] [address] of Report: 08/21/2018Date of Procedure: 08/19/2018Date of Receipt: 08/19/2018Submitted by: JAYLEN CASIANO MDLocation: [id number] interpretation performed at [facility], [address] [place] [address]. [facility] THERAPY NTon 08-19-2018 THERAPY NT HNO ID: [id number] thor: Ibeth (Pt) DreifkeService: Physical TherapyAuthor Type: Physical TherapistType: Therapy (PT/OT/Speech/Resp)Filed: 08/19/2018 4:21 PMNote Text:Physical Therapy EvaluationSERVICE DATE: 08/19/2018SERVICE TIME: 1531 to 1610ROOM: [id number] Discharge Disposition: Home PTRecommended Discharge Equipment: No equipment needs anticipatedPT Recommendations to Nursing: Ambulate with device;To bathroom;Inhalls;Transfer to/from chair;OOB for Meals;With assist of 1 personDevice: Wheeled WalkerPT 6 Clicks Score: 18Precautions/Activity Restrictions: Total Hip Replacement;Weight BearingRestrictionsExtremity With Weight Bearing Restricted: Right Lower ExtremityRight Lower Extremity Weight Bearing Status: WBATTotal Hip Replacement Precautions: PosteriorASSESSMENT :Patient presents with decreased functional mobility, decreased right hipROM and strength and decreased knowledge of post-op precautions andactivities. Requires skilled PT for functional mobility progression,exercise progression and post-op education. Patient is doing well withmobility day of surgery. Anticipate home tomorrow. Will follow.Patient Disposition at Start of Session: Supine in Bed;Call Briggs inReach;SCDsPatient Disposition at End of Session: OOB in Chair;Call Briggs in ReachTolerated Full SessionPhysical Therapy Problem List: Decreased Range Of Motion;DecreasedStrength;Functiona l Mobility ImpairmentPatient /Caregiver Goals: Go HomeGoals for Plan of Care:Able to perform HEP with: IndependentTransfer supine to/from sit with: IndependentTransfer sit to/from stand with: IndependentAmbulate with: Modified IndependentDistance: 150 feetDevice: Wheeled Walker;Crutch(es)Ambulate up and down steps with: SupervisionNumber of steps: 6Device: Rail;Crutch(es)Rehab Potential: GoodPLAN:Treatment Frequency (times per week): 7 Current admissionTreatment Interventions: Education;Joint Mobility;Strengthening;FunctionalM obility TrainingPlan of Care developed with: PatientTREATMENT INTERVENTIONS:Therapy Diagnosis: Reduced mobility-otherInterventions Provided: Evaluation;Therapeutic Exercise(52172);Therapeutic Activity (91276)$ Evaluation-Low (24007) Billed Units: 1 unitTherapeutic Exercise (05216) Treatment Minutes: 121 unitSkilled Intervention(s): Instruction in therapeutic exerciseVerbal and tactile cuing providedEducation in HEPTherapeutic Activity (75295) Treatment Minutes: 111 unitSkilled Intervention(s): Instructed patient in supine to sit pushing withupper extremities to sit upInstruction in sit to and from stand technique with proper hand placementand body positioning at edge of bed/chairEducation with post-op precautions and activitiesTotal Timed Code Treatment Minutes: 23Total Treatment Time (minutes): 39FUNCTIONAL G CODE:PT 6 Clicks Score: 18 (11/06/18 1531)Mobility: Walking and Moving Around Current Status (G8978): CK ()Mobility: Walking and Moving Around Goal Status (G8979): CI ()Based on clinical assessment and the score on the 6 Clicks FunctionalAssessment Tool, the G code and corresponding severity modifiers aredocumented above.SUBJECTIVE:Current Hospital Course: Chart reviewed; s/p right THR 08/19/18Reason for Physical Therapy Consult : s/p right THR 08/19/18Relevant Past Medical History: HTN; depression, osteonecrosis right hipPatient Report: Patient plans to return home tomorrow. States that he ishaving his left hip replaced in September.Home EnvironmentPatient Lives With: FamilyAssistance Available: 24 HourEntry To Home: Stairs;With RailNumber Of Stairs Into Home: 3Number Of Stairs To Bed/Bath: 1 flightStairs to Bed/Bath with: Unilateral RailEquipment Owned: Crutch(es);Wheeled WalkerPrior Functional Level: Within Functional LimitsOBJECTIVE:CURRENT FUNCTIONAL STATUS:Current Functional Mobility Assist Level Additional InformationRollingSupine to Sit Contact Guard AssistanceSit to SupineScootingSit to Stand Contact Guard AssistanceStand to Sit Contact Guard AssistanceBed to ChairToilet/CommodeGait Supervision Gait Device: Wheeled Walker Gait Distance (feet): 150 feetStairsCurb StepCar TransferGait Deviations Right Lower Extremity: Stance time decreased;Heel strikeduring initial stance decreased;Push-off during terminal stance decreasedGeneral Gait Deviations: Step length decreased;Verito decreasedPlease see discipline specific clinical documentation flowsheet forcomplete details for this therapy evaluation/treatment.SIGNATURE: Ibeth Hernandes, PT PATIENT NAME: Ranjana McdonoughDATE: August 19, 2018 : 4:17 PM [facility] XR PELVIS 1V APon 08-19-2018 XR PELVIS 1V AP * * *Final Report* * *DATE OF EXAM: Aug 19 2018 3:08PM LUX 5239 - XR PELVIS 1V AP / REASON: Post-operative / post-procedure assessment, asymptomatic * * * * Physician Interpretation * * * * HISTORY: Post-operative / post-procedure assessment, asymptomaticTECHNIQUE: Portable frontal radiograph pelvisCOMPARISON: 08/19/2018RESULT:Again seen is postsurgical change of total right hip arthroplasty with satisfactory alignment. No acute fracture. There is postoperative soft tissue gas. Avascular necrosis left femoral head with mild subchondral collapse, unchanged.IMPRESSION:STABLE POSTSURGICAL CHANGE OF RECENT TOTAL RIGHT HIP ARTHROPLASTYTranscriptionist: [facility] Transcribe Date/Time: Aug 19 2018 3:22PDictated by : KEMAL VASQUEZ MDThimiko examination was interpreted and the report reviewed and electronically signed by: KEMAL VASQUEZ MD on Aug 19 2018 3:23PM [id number] [facility] Protein mass conc * * *Final Report* * *DATE OF EXAM: Aug 19 2018 10:25AM LUX 5239 - XR PELVIS 1V AP / REASON: Hip replaced, periprosthetic fx suspected * * * * Physician Interpretation * * * * HISTORY: Hip replaced, periprosthetic fx suspectedTECHNIQUE: Portable frontal radiograph pelvisCOMPARISON: 07/04/2018RESULT:There is new postsurgical change of total right hip arthroplasty with satisfactory alignment. No acute fracture. There is postoperative soft tissue gas. Avascular necrosis left femoral head again seen with mild subchondral collapse.IMPRESSION:NEW POSTSURGICAL CHANGE OF TOTAL RIGHT HIP ARTHROPLASTYTranscriptionist: [facility] Transcribe Date/Time: Aug 19 2018 10:27ADictated by : Veronica YOUNG examination was interpreted and the report reviewed and electronically signed by: KEMAL VASQUEZ MD on Aug 19 2018 10:31AM [id number] [facility] NURSING PROGon 08-14-2018 Protein mass conc HNO ID: [id number]: Renetta (Rn) Darius, RNService: General SurgeryAuthor Type: Registered NurseType: Nursing Progress NoteFiled: 08/14/2018 1:19 PMNote Text:PACC Nurse Progress NoteHistory AND Physical:PACC Visit Date: 99-69-28Vduezhhl HANDP Date: N/AED visit Date: N/AOutside HANDP Scanned Date: N/ALabs Within Last 6 Months:CBC: Date 07-04-18BMP/CMP: Date 08-08-18UA: Date 39-14-97Fpliv C+S: Date 24-99-18GDPGAY: Date 16-80-47ASBK AND SCREEN: Date 00-87-54Qnoskh: Date 52-97-71FXKSO TEST: Albumin, Ferritin, Iron, Date 2-36-81Crjicb acceptable limits, results in [facility].Imaging Within Last 12 Months:X-ray Hip 6-88-61Fpuhrbp in [facility]Card[facility] Testing:EKG in last 12 Months: Yes: Date: 08-08-18, Comment: [facility]irmed [facility] Menstrual Period:LMP Date: N/APostmenopausal >1yr: N/A,S/P Hysterectomy: N/ABMI Percentile (PEDS):N/ARisk Assessment:N/AAnesthesia Review:N/ANarrative:N/APre-op Considerations:Per HANDP:etoh use-2- 3 bourbons a nightChart Check:Lebron Hsiehember 2017 1:16 PM [facility] Confirm Blood Typeon 018 ABO/RH(D) Positive [facility] Comment on above: Performed By: #### CONABO ####Confucianism [id number] [address] [phone] Type and SCR (30D)on 018 ABO/RH(D) Positive [facility] Comment on above: Performed By: #### [id number] ####Confucianism H [id number] [address] [phone] Vital Signs Date Time Vital Sign Value Performing Clinician Faci lity 07-22-2024 07:57-0400 Body height 182.9 cm [employer] Phone: [facility] Well 07-22-2024 07:57-0400 Body mass index (BMI) [Ratio] 32.28 kg/m2 [employer] Phone: [facility] Well 07-22-2024 07:57-0400 Body weight 107.96 kg [employer] Phone: [facility] 07-22-2024 07:57-0400 Diastolic blood pressure 86 mm[Hg] Gregorio Hernández DO Work Phone: [facility] 07-22-2024 07:57-0400 Heart rate 53 /min Gregorio Henrández DO Work Phone: [facility] 07-22-2024 07:57-0400 SaO2% (BldA) [Mass fraction] 98 % Gergorio Hernández DO Work Phone: [facility] 07-22-2024 07:57-0400 Systolic blood pressure 138 mm[Hg] Gregorio Hernández DO Work Phone: [facility] 07-10-2018 14:00-0400 Body weight Measured JAYLENCARRI CASIANO Demarcus Burr spital Encounters Encounter Date Encounter Type Care Provider Facility Start: 07-31-2024 End: 07-31-2024 Clinisync Result Encounter Gregorio Hernández DO Work Phone: [facility] External Department Unsolicited Start: 07-31-2024 End: 07-31-2024 Clinisync Result Encounter Gregorio Hernández DO Work Phone: [facility] External Department Unsolicited Start: 07-22-2024 End: 07-22-2024 Bamboo flowsheet Gregorio Hernández DO Work Phone: [facility] Start: 07-22-2024 End: 07-22-2024 Bamboo flowsheet Gregorio Hernández DO Work Phone: [facility] Start: 07-22-2024 End: 07-22-2024 Office outpatient new 45 minutes Gregorio Hernández DO Work Phone: [facility] Comment on above: Umbilical hernia wit hout obstruction and without gangrene (Primary Dx) Start: 07-22-2024 End: 07-22-2024 ambulatory GREGORIO HERNÁNDEZ Not Available Start: 07-02-2024 End: 07-02-2024 ambulatory FAMILIA ACOSTA Not Available Start: 05-21-2024 End: 05-21-2024 ambulatory SEE KHALIL Not Available Start: 02-19-2024 End: 02-19-2024 ambulatory SEE KHALIL Not Available Start: 02-06-2024 Refill Rafaela saha PA-C Work Phone: Orthopaedics Comment on above: Refill Request Start: 01-13-2024 End: 01-13-2024 ambulatory SEE KHALIL Not Available Start: 12-24-2023 Telephone encounter Jaylen peña MD Work Phone: [facility] Comment on above: Patient Question (De ntal Clearance) Start: 12-03-2023 End: 12-04-2023 ambulatory SEE KHALIL Facility:[facility] Start: 12-02-2023 End: 12-02-2023 ambulatory SEE KHALIL Not Available Start: 06-19-2023 End: 06-19-2023 ambulatory None Provider Facility:[facility] Start: 04-17-2023 Refill Rafaela saha PA-C Work Phone: Orthopaedics Comment on above: Refill Request Start: 02-16-2022 ambulatory No Pcp P[facility]co [facility] Start: 01-11-2022 End: 01-11-2022 Subsequent hospital visit by physician Venkatesh Fish Xray [facility] Radiology Comment on above: Instability of prost hetic hip, initial encounter ([facility]) [T84.028A, Z96.649] Start: 07-29-2019 End: 07-29-2019 Patient encounter procedure FLORES JASSOHARSHIL Facility:[facility] Start: 10-24-2018 End: 10-24-2018 Patient encounter procedure SEE KHALIL Facility:[facility] Start: 10-03-2018 End: 10-04-2018 Evaluation and management of inpatient [facility] Start: 08-19-2018 End: 08-20-2018 Evaluation and management of inpatient [facility] Procedures Date Procedure Procedure Detail Performing Clinician Start: 07-31-2024 ALL BASIC METABOLIC PANEL Gregorio Hernández DO Work Phone: Start: 01-11-2022 Radex hip unilateral with pelvis 2-3 views Jaylen Casiano MD Work Phone: Start: 07-29-2019 Alex dillard DO Work Phone: Start: 09-16-2018 Antibody screen JAYLEN CASIANO Comment on above: Performed By: #### T SCR30 ####Confucianism [id number] [address] [phone] Start: 08-08-2018 Antibody screen JAYLEN CASIANO Comment on above: Performed By: #### T SCR30 ####Confucianism [id number] [address] [phone] Plan of Treatment Date Care Activity Detail Author Start: 07-29-2029 Screening for malign ant neoplasm of colon [facility] Start: 12-19-2024 DIABETES SCREEN DIABETES SCREEN [facility] Start: 12-19-2024 [facility] Start: 12-03-2024 Urine screening for protein Diabetes: Urine Protein Screening [facility] Start: 08-21-2024 Hemoglobin A1c measurement Diabetes: Hemoglobin A1C [facility] Start: 08-11-2024 End: 08-11-2024 Clinical Support 08/11/2024 4:30 PM EDT Clinical Support [facility] [address] [place] [id number] [facility] Start: 07-22-2024 End: 07-22-2024 Patient encounter procedure 07/22/2024 8:00 AM EDT Office Visit [facility] [address] [place] [phone] Gregorio Hernández DO [address] [place] [address] Arrived [facility] Comment on above: Arrived Start: 06-14-2024 Influenza vaccination C [facility] Start: 10-14-2023 Behavioral Health Screening Behavioral Health Screening [facility] Start: 10-14-2023 Depression Assessment Depression Ass essment [facility] Start: 06-14-2023 Covid-19 Vaccine () Covid-19 Vaccine () [facility] Start: 06-14-2023 Influenza vaccination [facility] Start: 10-14-2022 DEPRESSION ASSESSMENT DEPRESSION ASS ESSMENT [facility] Start: 11-22-2021 COVID-19 VACCINE (4 - Booster for Pfizer series) COVID-19 VACCINE (4 - Booster for Pfizer series) [facility] Start: 2019 SHINGRIX VACCINE (1 of 2) SHINGRIX V ACCINE (1 of 2) [facility] Start: 2014 COLOGUARD (FIT-DNA) COLOGUARD (FIT-D NA) [facility] Start: 2014 Colonoscopy COLONOSCOPY [facility] Start: 2014 COLORECTAL CANCER SCREENING COLORECTAL CANCER SCREENING [facility] Start: [address] [facility] Start: 2014 FECAL OCCULT BLOOD FECAL OCCULT BLOO D [facility] Start: 2014 Screening for malign ant neoplasm of colon [facility] Start: 2014 SIGMOIDOSCOPY SIGMOIDOSCOPY [facility] Start: 04-09-2013 Urine microalbumin profile DTaP,Tdap,Td Vaccine (1 - Tdap) [facility] Start: 2004 Lipid panel Lipid Screening [facility] Start: 2004 LIPID SCREEN LIPID SCREEN [facility] Start: 1988 Hepatitis B Vaccine (1 of 3 - 19+ 3-dose series) Hepatitis B Vaccine (1 of 3 - 19+ 3-dose series) [facility] Start: 1988 Urine microalbumin profile DTAP,TDAP,TD (1 - Tdap) [facility] Start: 1987 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 ANNUAL PCP TEAM CHRONIC DISEASE VISIT [facility] Start: 1987 BP CONTROLLED (<130/80) BP CONTROLLE D (<130/80) [facility] Start: 1987 HEPATITIS C SCREENING HEPATITIS C [facility] Start: 1987 Hepatitis C screening Hepatitis C [facility] Start: 1987 HIV SCREENING HIV SCREENING [facility] Start: 1987 HIV screening HIV Screening [facility] Start: 1981 Adult depression screening assessment DEPRESSION SCREENING [facility] Start: 1979 Glaucoma screening Diabetes: R etinopathy Screening [facility] Start: 1969 HEPATITIS B (1 of 3 - 3-dose series) HEPATITIS B (1 of 3 - 3-dose series) [facility] Start: 1969 Screening for malign ant neoplasm of colon [facility] Immunizations Immunization Date Immunization Notes Care Provider Bianca [email or web address] 09-17-2022 influenza, injectabl e, quadrivalent, contains preservative Gregorio Warner DO Work Phone: [facility] 09-17-2022 influenza virus vacc ine, unspecified formulation Jaylen Casiano MD Work Phone: [facility] 09-27-2021 Influenza, injectabl e, Madin Dulac Canine Kidney, preservative free, quadrivalent Gregorio Warner DO Work Phone: [facility] 10-02-2020 influenza, injectabl e, quadrivalent, contains preservative Gregorio Warner DO Work Phone: [facility] 08-20-2018 influenza, high dose seasonal, preservative-free Gregorio Warner DO Work Phone: [facility] 08-20-2018 influenza, injectabl e, quadrivalent, preservative free Orth A21 [facility] 07-02-2016 influenza, injectabl e, quadrivalent, preservative free Gregorio Warner DO Work Phone: [facility] 06-30-2015 seasonal influenza, intradermal, preservative free Gregorio Warner DO Work Phone: [facility] 04-08-2013 TD(adult) unspecifie d formulation Gregorio Warner DO Work Phone: [facility] Payers Date Payer Category Payer Private Health Insurance [employer] 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 2018 Unknown [id number] 1969 Unknown [id number] 593 1969 Unknown [id number] 593 1969 Unknown [id number] 718 1969 Unknown [id number] 1259 1969 Unknown [id number]. 1259 1969 Unknown [id number]. 1259 1969 Unknown [id number]. 1259 1969 Unknown [id number]. 1259 1969 Unknown [id number] 1259 1959 Unknown [id number] 1959 Unknown [id number] Social History Date Type Detail Facility Start: 09-16-2018 End: 07-22-2024 Tobacco smoking status CTIS Ex-smoker [facility] End: 09-16-2002 History of tobacco use Current smoker [facility] End: 09-16-2002 History of tobacco use Cigarette Smoker [facility] Start: 09-16-2018 End: 12-01-2023 Cigarettes smoked current (pack per day) - Reported 0.5 [facility] Start: 09-16-2018 End: 07-22-2024 Tobacco use and exposure Smokeless tobacco non-user [facility] Start: 01-11-2022 End: 07-22-2024 Alcohol intake Current drinker of alcohol (finding) [facility] Start: 12-12-2021 Tobacco Comment Unknown number of years as a smoker [facility] Start: 1970 Sex Assigned At Male C [facility] Start: 01-01-2022 End: 01-11-2022 Exposure to SARS-CoV-2 (event) Not sure [facility] Start: 01-11-2022 End: 12-01-2023 Tobacco use panel [facility] PHQ2 Score 0 [facility] Start: 11-01-2021 Gender identity Identifies as male gender (finding) [facility] Do you belong to any clubs or organizations such as mosque groups, unions, fraternal or athletic groups, or school groups? No [facility] Are you now , , , , never or living with a partner? [facility] How often to you hav e a drink containing alcohol? 4 or more times a week [facility] How many standard dr inks containing alcohol do you have on a typical day? 3 or 4 [facility] How often do you hav e 6 or more drinks on 1 occasion? Less than monthly [facility] How hard is it for y ou to pay for the very basics like food, housing, medical care, and heating Not very hard [facility] Do you feel stress - tense, restless, nervous, or anxious, or unable to sleep at night because your mind is troubled all the time - these days [OSQ] To some extent [facility] (I/We) worried wheth er (my/our) food would run out before (I/we) got money to buy more. Never true [facility] Medical Equipment Procedure Code Equipment Code Equipment Origin al Text Equipment Identifier Dates Shell G7 58mm G Hemisphere Offset Porous Acetabular Limit Hole Color Coded - [id number] Start: 08-19-2018 Liner G7 36mm G Neutral E1 Acetabular Hip - [id number] Start: 08-19-2018 Stem Taperloc Microplasty 133d 12 Standard Offset Taper Pps 109mm Femoral - [id number] Start: 08-19-2018 Head 36mm+3mm Bi olox Delta Femoral Type I Sterile Hip - [id number] Start: 08-19-2018 Shell G7 58mm G Hemisphere Offset Porous Acetabular Limit Hole Color Coded - [id number] Start: 10-03-2018 Liner G7 36mm G Neutral E1 Acetabular Hip - [id number] Start: 10-03-2018 Stem Taperloc Microplasty 133d 12 Standard Offset Taper Pps 109mm Femoral - [id number] Start: 10-03-2018 Sleeve G7 0 Pipo dard Offset Taper Biolox Delta Centering Type 1 Option Hip - [id number] Start: 12-18-2021 Head G7 36mm Bio lox Delta Femoral Hip - [id number] Start: 12-18-2021 Liner G7 E1 10d G 2.7mm 3.2mm Acetabular Color Coded 36mm Hip - [id number] Start: 12-18-[address] Taper Arcomxl Biolox Delta Femoral Type 1 Modular Hip - [id number] Start: 10-03-2018 History of Present illness Narrative 07-22-2024 Gregorio Hernández DO - 07/22/2024 8:00 AM EDT Note Date & Type Note Facility 07-22-2024 History of Presen t illness Narrative General Surgery H&P Ranjana Mcdonough 1970 Ranjana Mcdonough is a 54 y.o. male presents with chief complaint of Hernia (Pt presents today with complaints of an umbilical hernia. Pt states that he has had it for a little over a year. Pt denies pain. ) Denies abdominal pain. Denies hx of excessive weight loss. Denies fevers, chills, or sweats. Denies nausea or vomiting. Discussed surgery and risks for robotic laparoscopic umbilical hernia repair with mesh procedure. Patient would like to proceed with surgery. SUBJECTIVE: MEDICATIONS: ALLERGIES Current Outpatient Medications Medication Instructions allopurinol (ZYLOPRIM) 200 mg, Oral, Daily amoxicillin (Amoxil) 500 MG tablet TAKE 4 TABLETS BY MOUTH 1 HOUR PRIOR TO APPOINTMENT, then TAKE 2 TABLETS BY MOUTH 6 (SIX) HOURS after appointment bisoprolol (ZEBETA) 10 mg, Oral, Daily citalopram (CELEXA) 10 mg, Oral, Daily Ozempic (0.25 or 0.5 MG/DOSE) 0.5 mg, Subcutaneous, Every 7 days rosuvastatin (CRESTOR) 20 mg, Oral, Daily sildenafil (VIAGRA) 50 mg, Oral, Daily testosterone cypionate (Depo-Testosterone) 200 MG/ML injection inject 1 milliliter intramuscularly ONCE A MONTH No Known Allergies PAST MEDICAL HISTORY: SOCIAL HISTORY SURGICAL HISTORY: Past Medical History: Diagnosis Date Diabetes mellitus ([facility]) 02/2024 GERD (gastroesophageal reflux disease) 12/31/2022 Gout Hypertension ([facility]) Tubular adenoma 2018 Social History Tobacco Use Smoking status: Former Current packs/day: 0.50 Average packs/day: 0.5 packs/day for 10.0 years (5.0 ttl pk-yrs) Types: Cigarettes Smokeless tobacco: Never Vaping Use Vaping status: Never Used Substance Use Topics Alcohol use: Yes Alcohol/week: 12.0 standard drinks of alcohol Types: 12 Shots of liquor per week Drug use: Never Past Surgical History: Procedure Laterality Date COLONOSCOPY W/ POLYPECTOMY 2019 JOINT REPLACEMENT No family history on file. No Known Allergies Past Surgical History: Procedure Laterality Date COLONOSCOPY W/ POLYPECTOMY 2019 JOINT REPLACEMENT Tobacco Use: Medium Risk (07/22/2024) Patient History Smoking Tobacco Use: Former Smokeless Tobacco Use: Never Passive Exposure: Not on file Alcohol Use: Alcohol Misuse (12/01/2023) AUDIT-C Frequency of Alcohol Consumption: 4 or more times a week Average Number of Drinks: 3 or 4 Frequency of Binge Drinking: Less than monthly Depression: Not at risk (10/03/2018) Received from [facility], [facility] PHQ-2 PHQ2 Score: 0 Physical Activity: Insufficiently Active (12/01/2023) Exercise Vital Sign Days of Exercise per Week: 4 days Minutes of Exercise per Session: 20 min REVIEW OF SYMPTOMS: Review of Systems All other systems reviewed and are negative. 10 systems were reviewed. Positives noted above. Remainder are negative per CMS guidelines OBJECTIVE: Visit Vitals BP 138/86 Pulse 53 Ht 6' Wt 238 lb SpO2 98% BMI 32.28 kg/m Smoking Status Former BSA 2.34 m Physical Exam Vitals reviewed. General: AAOx3, NAD Head: atraumatic normocephalic Neck: trachea midline. No masses or lymphadenopathy Heart: Regular rate and rhythm Lungs: equal chest rise and fall, non labored breathing Abdomen: soft, nontender, and non distended, umbilical hernia noted with partially reducible contents, no erythema, no thinning of the skin, non tender to touch Ext: motor 5/5 all extremities with no gross deformities Psych: alert and oriented, behavior appropriate ASSESSMENT AND PLAN: Assessment/Plan Diagnoses and all orders for this visit: Umbilical hernia without obstruction and without gangrene Patient informed of the risks of robotic laparoscopic umbilical hernia repair with mesh procedure which include but not limited to bleeding, scarring, damage to nearby structures, chronic pain, wound healing issues, possible need for more procedures and risks of anesthesia. Patient understood risks and signed informed consent. Will schedule at patient's earliest convenience. Thank you, Taye Hernández DO documented in this encounter [facility] Healthcare Note 12-26-2023 Telephone Encounter - Tamara Vega - 12/26/2023 8:57 AM EDTTelephone Encounter - Estella Box RN - 12/24/2023 1:17 PM EDTTelephone Encounter - Tamara Vega - 12/24/2023 1:00 PM EDT Note Date & Type Note Facility 12-26-2023 Miscellaneous Notes Formattin g of this note might be different from the original. Form for dental clearance (below) as well as Dr. Casiano's antibiotic protocol emailed to [facility]: [email or web address] - please complete (since we are not on site at today) and fax back. Yes to needing prophylaxis. Type of Antibiotic - copy from page 21 in surgery packet, Amoxicillin protocol. How long - lifetime, if tolerated by patient. The remainder of the questions are not pertinent for us to comment on - they do not relate to orthopedics/having a hip implant. OK to stamp and then fax back. Thank you. Images from the original note were not included. Ranjana has a dental appointment tomorrow, he just needs this form filled out and a stamped signature is OK documented in this encounter [facility] History and physical note 06-20-2023 Note Date & Type Note Facility 06-20-2023 Note [phone] [id number] FF [facility] Clinical Note 06-19-2023 Note Date & Type Note Facility 06-19-2023 Note Patient Education Materials Foll ows: [facility] Note 04-17-2023 Telephone Encounter - Rafaela Swanson PA-C - 04/17/2023 12:56 PM EDT Note Date & Type Note Facility 04-17-2023 Miscellaneous Notes Formattin g of this note is different from the original. Patient's request for medication is as follows: Requested Prescriptions Signed Prescriptions Disp Refills amoxicillin (AMOXIL) 500 mg capsule 6 capsule 2 Sig: Take 4 capsules (2000 mg) 1 hour prior to procedure, then take 2 capsules (1000mg) 6 hours after procedure. Authorizing Provider: RAFAELA SWANSON Prescription(s) as above. Please process accordingly. Rafaela Swanson PA-C documented in this encounter [facility] History of Present illness Narrative 02-16-2022 Amber Cho Pss - 02/16/2022 5:36 PM EDT Note Date & Type Note Facility 02-16-2022 History of Presen t illness Narrative POPULATION HEALTH NAVIGATION OUTREACH Action/FYI Patient Outreach: Spoke with patient to schedule in RST. 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: MMO / Plan: MMO [employer] / Product Type: PPO / Care Gap Reviewed:: RST Reminder: Reminder note to check Health Maintenance for items below Health Maintenance items due: DEPRESSION SCREENING Never done ANNUAL PCP TEAM CHRONIC DISEASE VISIT Never done HEPATITIS C SCREENING Never done HIV SCREENING Never done BP CONTROLLED (<130/80) Never done DTAP,TDAP,TD(1 - Tdap) Never done LIPID SCREEN Never done COLORECTAL CANCER SCREENING Never done SHINGRIX VACCINE(1 of 2) Never done Message Sent to Practice: No Navigation Signature: Amber Mckeon February 16, 2022 5:36 PM documented in this encounter [facility] History of Present illness Narrative 01-11-2022 RT Michelle(R) - 01/11/2022 2:00 PM EDT Note Date & Type Note Facility 01-11-2022 History of Presen t illness Narrative Radiology Service Progress Note PATIENT NAME: Ranjana Mcdonough DATE OF SERVICE: January 11, 2022 TIME: 12:57 PM PATIENT IDENTITY VERIFICATION COMPLETED USING TWO (2) IDENTIFIERS: Name and Date of confirmed by patient verbally. FALL SCREENING: Has the patient had 2 falls in the last year or 1 fall with injury or currently using an Ambulatory Assistive Device (Walker, Cane, Wheelchair, Crutches, etc.)? No PATIENT GENDER DATA: Male PATIENT RELEVANT IMPLANT DATA REVIEWED: Not Applicable RADIOLOGY DEPARTMENT: General X-ray: Exam(s) Completed: Pelvis X-Ray: Pelvis with Hip Left PERIPHERAL IV DATA: Not applicable SIGNED BY: RT Michelle(R) January 11, 2022 12:57 PM documented in this encounter [facility] Evaluation note Note Date & Type Note Facility Evaluation note Diagnosis Instability of prosthetic hip, initial encounter (HCC) documented in this encounter [facility] Evaluation note Note Date & Type Note Facility Evaluation note Diagnosis Umbilical hernia without obstruction and without gangrene- Primary documented in this encounter [facility] Reason for referral (narrative) Diagnostic Procedure Only (Routine) - Closed Note Date & Type Note Facility Reason for referral (narrati ve) Specialty Diagnoses / Procedures Referred By Contac t Referred To Contact XR IMAGING Diagnoses Instability of prosthetic hip, initial encounter ([facility]) Procedures XR HIP GENERAL 3V PELV/AP/LAT LEFT RADEX HIP UNILATERAL WITH PELVIS 2-3 VIEWS Jaylen Casiano MD [address] [place] [address] Xr Imaging Referral ID Status Reason Start Date Expiration Date V isits Requested Visits Authorized [id number] Closed Auto-Generate d Referral 11/27/2021 12/27/2022 1 1 [facility] Summary Purpose Family History No Family History Records FoundNo Family History Records FoundNo Family History Records FoundNo Family History Records FoundNo Family History Records FoundNo Family History Records FoundNo Family History Records Found Advance Directives Documents on File Type Date Recorded Patient Rcis Expl anation Advance Directive(s) 11/29/2021 1:48 PM Advance Directive(s) 09/15/2018 5:29 PM Advance Directive(s) 08/06/2018 2:39 PM Advance Directive(s) 07/30/2018 1:19 PM Documents on File Type Date Recorded Patient Rcis Expl anation Advance Directive(s) 11/29/2021 1:48 PM Advance Directive(s) 09/15/2018 5:29 PM Advance Directive(s) 08/06/2018 2:39 PM Advance Directive(s) 07/30/2018 1:19 PM Documents on File Type Date Recorded Patient Rcis Expl anation Advance Directive(s) 08/06/2018 2:39 PM Procedure Findings Note HNO ID: [id number]: Jus millard (Res) SiqueiraService: Orthopaedic SurgeryAuthor Type: ResidentType: Brief Op NoteFiled: 08/19/2018 10:53 AMNote Text:BRIEF OPERATIVE / PROCEDURE NOTELOG ID: [id number]/Procedure Date: 08/19/2018Incision/Procedure Start Time: 8:10 AMIncision Close/Procedure End Time: 9:44 AMSurgeon(s)/Proceduralist(s) and Interpretative Dancer(s):Surgeon(s) and Role: * Jaylen Casiano MD - Primary * Indra (Hollis) Tatianna - Resident - AssistingProcedure(s):Procedure(s) (LRB):ARTHROPLASTY REPLACE JOINT TOTAL HIP (Right)Anesthesia: SpinalApproach: PosteriorFindings: OAEstimated Blood Loss: 50 mlsSpecimens: NoneComplications: NoneImplant:Implant Name Type Inv. Item Serial No. Rn Outpatient Surgery Lot No. LRB No. UsedBIT RINGLOC 3.2MM 30MM DRILL NONSTERILE ACETABULUM DISPOSABLE - [id number] BIT RINGLOC 3.2MM 30MM DRILL NONSTERILE ACETABULUM DISPOSABLE [employer] [id number] Right 1SHELL G7 58MM G HEMISPHERE OFFSET POROUS ACETABULAR LIMIT HOLE COLOR CODED- [id number] Joint - Hip SHELL G7 (more content not included)... Note OPERATIVE NOTE OPERATION ELYSE E: 07-29-19 ANESTHETIC:Propofol as per the anesthesia team. PREOPERATIVE DIAGNOSIS:Screening examination. POSTOPERATIVE DIAGNOSIS:Three benign, small polyps, distal transverse colon, cold snared, removed, retrieved. PROCEDURE NAME:Colonoscopy to the cecum with polypectomy. PROCEDURE: The patient was placed in the left lateral decubitus position. The Olympus 180 colonoscope inserted into the rectum and easily advanced through the entire colon to the cecum. In the distal transverse colon were three small benign, but adenomatous appearing polyps. These were cold snared, removed, and retrieved. The rest of the exam into the cecum was normal. FINAL DIAGNOSIS: Three small polyps, removed. RECOMMENDATION / PLAN: Repeat colonoscopy for surveillance in three years. cc:Dr. Khalil [facility] Signed and Approved by: DR FLORES ROSALES 07/29/2019 10:47:00 Additional Source Comments (unrecognized sect ion and content) No Status Records FoundNo Status Records FoundNo Status Records FoundNo Status Records FoundNo Status Records FoundNo Status Records FoundNo Status Records Found INFORMATION SOURCE (unrecogn ized section and content) DATE CREATED AUTHOR 10/11/2018 [facility] DATE CREATED AUTHOR AUTHOR'S ORGANIZ ATION 08/04/2019 [facility] DATE CREATED AUTHOR AUTHOR'S ORGANIZ ATION 06/24/2021 [facility] DATE CREATED AUTHOR AUTHOR'S ORGANIZ ATION 12/11/2021 [facility] DATE CREATED AUTHOR AUTHOR'S ORGANIZ ATION 12/10/2023 [facility] DATE CREATED AUTHOR AUTHOR'S ORGANIZ ATION 12/27/2023 [facility] DATE CREATED AUTHOR AUTHOR'S ORGANIZ ATION 07/23/2024 [facility] EPIC Source Comments (unrecognize d section and content) In the event this informatio n is protected by the Federal Confidentiality of Alcohol and Drug Abuse Patient Records regulations: The Federal rules restrict any use of the information to criminally investigate or prosecute any alcohol or drug abuse patient.[facility] the event this information is protected by the Federal Confidentiality of Alcohol and Drug Abuse Patient Records regulations: The Federal rules restrict any use of the information to criminally investigate or prosecute any alcohol or drug abuse patient.[facility] the event this information is protected by the Federal Confidentiality of Alcohol and Drug Abuse Patient Records regulations: The Federal rules restrict any use of the information to criminally investigate or prosecute any alcohol or drug abuse patient.[facility] the event this information is protected by the Federal Confidentiality of Alcohol and Drug Abuse Patient Records regulations: The Federal rules restrict any use of the information to criminally investigate or prosecute any alcohol or drug abuse patient.[facility] the event this information is protected by the Federal Confidentiality of Alcohol and Drug Abuse Patient Records regulations: The Federal rules restrict any use of the information to criminally investigate or prosecute any alcohol or drug abuse patient.[facility] Reason for Visit (unrecogniz ed section and content) Reason Comments Radio Gen A21 Specialty Diagnoses / Procedures Referred By Contac t Referred To Contact XR IMAGING Diagnoses Instability of prosthetic hip, initial encounter (HCC) Procedures XR HIP GENERAL 3V PELV/AP/LAT LEFT RADEX HIP UNILATERAL WITH PELVIS 2-3 VIEWS Jaylen Casiano MD [address] [place] [address] Xr Imaging Referral ID Status Reason Start Date Expiration Date V isits Requested Visits Authorized [id number] Closed Auto-Generate d Referral 11/27/2021 12/27/2022 1 1 Reason Onset Date Comments Refill Request 04/17/2023 Reason Comments Patient Question Dental Clearance Reason Onset Date Comments Refill Request 02/06/2024 Reason Comments Hernia Pt presents today wi th complaints of an umbilical hernia. Pt states that he has had it for a little over a year. Pt denies pain. Care Teams (unrecognized sec tion and content) Automotive Mechanic Relationship Specialty Start Date End Date See Khalil II [address] [place] [address] PCP - General Internal Medicine 06/27/18 Automotive Mechanic Relationship Specialty Start Date End Date See Khalil II [address] [place] [address] PCP - General Internal Medicine 06/27/18 Automotive Mechanic Relationship Specialty Start Date End Date See Khalil II [address] [place] [address] PCP - General Internal Medicine 06/27/18 Automotive Mechanic Relationship Specialty Start Date End Date See Khalil II, MD [address] [place] [address] PCP - General Internal Medicine 06/27/18 Automotive Mechanic Relationship Specialty Start Date End Date See Khalil MD [address] [place] [address] PCP - [facility] [employer] 03/14/23 10/13/99 See Khalil MD [address] [place] [address] PCP - General Internal Medicine 02/19/23 Automotive Mechanic Relationship Specialty Start Date End Date See Khalil MD [address] [place] [address] PCP - [facility] [employer] 03/14/23 10/13/99 See Khalil MD [address] [place] [address] PCP - General Internal Medicine 02/19/23 Automotive Mechanic Relationship Specialty Start Date End Date See Khalil MD [address] [facility] [address] [place] [address] PCP - [facility] 03/14/23 10/13/99 See Khalil MD [address] [facility] [address] [place] [address] PCP - General Internal Medicine 02/19/23 FOR RECORDS PERTAINING TO PATIENTS WHO ARE OR HAVE BEEN ENROLLED IN A CHEMICAL DEPENDENCY/SUBSTANCEABUSE PROGRAM, SOME INFORMATION MAY BE OMITTED. This clinical summary was aggregated from multiple sources. Caution should be exercised in using it in the provision of clinical care. This summary normalizes information from multiple sources, and as a consequence, information in this document may materially change the coding, format and clinical context of patient data. In addition, data may be omitted in some cases. CLINICAL DECISIONS SHOULD BE BASED ON THE PRIMARY CLINICAL RECORDS. [employer] [facility]. provides no warranty or guarantee of the accuracy or completeness of information in this document.
[2024-08-11] MEDS: LACTATED RINGER'S SOLUTION 1,000 ML 50 ML IV ×2 (07:14→09:39)
[2024-08-11 07:39] LABS: Glucometer 98 mg/dL (74-106)
[2024-08-11] MEDS: CEFAZOLIN SODIUM 2 GM/50 ML D5W PREMIX IV (07:47)
--- NOTE | 2024-08-11 08:00 | W.PM.PROCNOT ---
Date of procedure: 08/11/24 Pre-op diagnosis: umbilical hernia Post-op diagnosis: same as pre-op Procedure: Robotic JESSICA (transabdominal preperitoneal) ventral hernia repair with mesh and bilateral rectus sheathTAP block The patient was brought to the operating room and placed supine on the operating room table. Cardiopulmonary monitoring was initiated. General anesthesia was induced without any complication. A time-out was performed.? Pre-operative antibiotics were given. EPC cuffs were on the lower extremities. Both arms were tucked. The abdomen was prepped and draped in the usual sterile fashion. The abdomen was entered approximately 12-14 cm distal to the xyophoid process and to the left of the midline/umbilicus in the left lateral rectus sheath. To do this a skin incision was made. A 5mm 0 degree laparoscope was then introduced using an optical access trocar. Pneumoperitoneum was then established through this trocar. Once pneumoperitoneum was created 2 additional 8 mm DA Erwin ports were placed under direct visualization in the left lower and upper quadrants abdomen along the same lateral line. The 5mm optiview port was then upsized to a 8mm robotic port under direct visualization.?No injuries were evident. The 5mm port was upsized to an 8mm port. Prior to proceeding with the operation, an intraoperative TAP block was performed. ?Under visualization with the laparoscope, a needle was inserted percutaneously and, confirming that I was in the right plane, 30 mL of a mixture of Ropivacaine and Decadron were injected on both sides for a total of 60 ml. ?Good separation of the muscle planes was seen bilaterally indicating good placement of the anesthetic solution. The robot was then docked and a 30 degree robotic scope was placed into the abdomen.?The instruments were all placed within the abdominal cavity under direct visualization. The periumbilical defect was identified, was noted to be approximately 3.5 cm in diameter. The surrounding preperitoneal fatty tissue was then dissected free with electrocautery in order to skeletonize the fascial defect.?Once the abdominal contents were reduced a preperitoneal pocket was started approximately 6cm lateral to the hernia defect on the ipsilateral side. This pocket was carried out all the way to the hernia defect and 6cm lateral to the defect on the contralateral side. Care was taken to avoid holes in the peritoneum and ensure hemostasis. While the preperitoneal pocket was being created the hernia sac was reduced and dissected off the periumbilical defect.?The area was measured and the hernia defect was noted to be 3 cm x 3cm. A 9cm round symbotex composite mesh was decided upon and opened. Once this was completed the insufflation was placed down to 10 mmHg and the umbilical defect was reapproximated using a 0 V-Loc stitch.?Once that was completed the 9cm piece of mesh was placed within the abdominal cavity.? The mesh was sutured circumferentially to the posterior rectus sheath using multiple 3-0 V-Loc stitches. The mesh was noted to lie flat on the anterior surface of the abdomen without any crimpage and in good position with good overlap. Once the mesh was satisfactory placed,?the peritoneal pocket was closed with a 3-0 v-loc in a running fashion making sure to completely cover the mesh. No mesh was visible at the end of the peritoneal closure. The instruments and needles were removed and the robot was undocked. The remaining ports were then removed while insufflation was released through the robotic ports.? The port site skin was reapproximated using 4-0 Monocryl. Dermabond was placed over the incisions. The patient tolerated the procedure well. There were no complications.? Patient was extubated and taken to recovery in stable condition.? All sponge, instrument and needle counts were correct prior to skin closure. Anesthesia: PHILLIPA Surgeon: Anupam Hylton Estimated blood loss (mL): 5 Pathology: none sent Condition: stable Disposition: PACU
[2024-08-11] MEDS: 0.9 % SODIUM CHLORIDE 10 ML 20 ML INJ (08:25)
[2024-08-11] MEDS: BUPIVACAINE HCL 0.25% PF 25 MG/10 ML VIAL 20 ML INJ (08:25)
[2024-08-11] MEDS: BUPIVACAINE LIPOSOME/PF 266 MG/13.3 ML VIAL INJ (08:25)
[2024-08-11] MEDS: OXYCODONE HCL/ACETAMINOPHEN 5MG/325MG 1 TAB PO (10:20)
== END 2024-08-11 11:15 | disposition home or self-care (01) ==
PROVIDERS: PCP Internal Medicine; Visit Provider Surgery
PROC: (CPT 00832; principal; 2024-08-11 07:55)
DX: K42.9 Umbilical hernia without obstruction or gangrene (principal); Z87.891 Personal history of nicotine dependence; E11.9 Type 2 diabetes mellitus without complications; E78.5 Hyperlipidemia, unspecified; I10 Essential (primary) hypertension; K21.9 Gastro-esophageal reflux disease without esophagitis
CPT/HCPCS: 00832; 49593; 36415; 82948; C1781; J0665; J0690; J1100; J1885; J2250; J2405; J2704; J3010